=== PATIENT | female | born 1940 | race Caucasian/White ===

== ENCOUNTER → 2016-03-19 | Outpatient (CLI) | payer OTHER ==
[~2016-03-19] MED LIST: ACET-1256 PO; ASPI81TA28 PO; BRIM0.15 OPB; DIPH-416 PO; DORZ2SOL20; LATA0.5S; MULT-506 PO; NUTR-31 PO; PARO1TAB27 PO; RIVA1TAB7 PO; TRIATAB3 PO; XRL15 PO
--- NOTE | 2016-03-19 17:07 | MAMMOGRAPHY REPORT ---
UNILATERAL LEFT DIGITAL DIAGNOSTIC MAMMOGRAM TOMOSYNTHESIS AND TARGETED LEFT ULTRASOUND: 03/19/2016 CLINICAL HISTORY: Callback from screening mammogram for left breast calcifications and left breast m ass. TECHNIQUE: Breast tomosynthesis in addition to standard 2D mammography was performed. Spot dannie ranjit left CC and MLO 2-D and tomosynthesis views and spot magnification left CC and ML views were ob tained. COMPARISON: Comparison is made to exams dated: 03/10/2016 mammogram - [facility], 10/11/2009 mammogram, and 11/19/2007 mammogram. BREAST COMPOSITION: The tissue of the left breast is heterogeneously dense, which may obscure small masses. FINDINGS: Spot magnification views of the left breast demonstrate a small 3 mm cluster of slightly heterogeneous calcifications in the left central breast, which are new compared to prior exams. Giv en that the calcifications are new, they are indeterminate and stereotactic biopsy is recommended fo r further evaluation. The previously described nodular 5 mm asymmetry seen within the left medial b reast on the cc view does not clearly persist on the spot compression views. Targeted ultrasound was performed of the left medial breast in the region of the mammographic asymme try. In the left breast at 11:00, 1 cm from the nipple, there is a lobulated hypoechoic 5 x 3 x 5 m m mass with a few thin internal septations. This likely represents a cyst cluster and may correspon d with the mammographic mass although is indeterminate. Recommend ultrasound guided core needle bio psy for further evaluation. In the left breast at 9:00 periareolar region is an oval anechoic benig n simple cyst which measures 7 x 4 x 8 mm. IMPRESSION: ACR BI-RADS CATEGORY 4: SUSPICIOUS, TARGETED ULTRASOUND ACR BI-RADS CATEGORY 4: SUSPICI OUS 1. New small 3 mm cluster of calcifications in the left central breast. The calcifications are ind eterminate and stereotactic biopsy is recommended for further evaluation. 2. 5 mm mass in the left breast at 11:00 on ultrasound, which may correspond with the mammographic mass and may represent a cyst cluster although is indeterminate. Recommend ultrasound-guided core n eedle biopsy for further evaluation. A phone call was made to the physician's office to confirm faxed results were received. The patient has been verbally notified of the results. She tentatively scheduled the biopsies before leaving t he department. Approximately 10% of breast cancers are not detected with mammography. A negative mammographic repor t should not delay biopsy if a clinically suggestive mass is present. Ary Mosquera M.D. ah/:03/19/2016 15:21:01 Finish Cleaner: Heather BRITO(Raiza)(Sonya), [facility] letter sent: Abnormal 4/5 BI-RADS Code: ACR BI-RADS Category 4: Suspicious Ultrasound BI-RADS: ACR BI-RADS Category 4: Suspic ious
--- NOTE | 2016-03-22 06:26 | CODING QUERY NO DIAGNOSIS ---
TREATMENT RENDERED WITHOUT A DIAGNOSIS To promote full compliance with coding requirements relating to patient care, physician participation is requested in all cases of manager of community relations uncertainty. Please assist us with providing a diagnosis/symptom for the test(s) below: A diagnosis/symptom was not documented on your Order. A valid diagnosis/symptom is required to bill all insurances. Please remember that we are unable to code a diagnosis of rule out, probable, possible, questionable, or suspected. Tests that require a diagnosis: DOS: 03/19/16 * LEFT DIAGNOSTIC MAMMOGRAM W/ TARGETED ULTRASOUND DIAGNOSIS: Provider Signature: Date: Thank you Lara James [employer] Once completed, please kindly fax back to [phone] For questions please call [phone]
== END | disposition home or self-care (01) ==
LOC: C.MAMM 13:25
PROVIDERS: ATTEND Family Medicine
DX: R92.1 Mammographic calcification found on diagnostic imaging of breast (principal); N63 Unspecified lump in breast

== ENCOUNTER → 2016-04-04 | Outpatient (CLI) | payer OTHER ==
--- NOTE | 2016-04-04 13:42 | Discharge Instructions ---
Discharge Instructions Procedure Procedure Date: Apr 04, 2016. Reason for visit: Left Calcs/Us Core Bx Left Mass. Discharge Discharge Date: Apr 04, 2016. Discharge Diagnosis: status post breast biopsy Instructions Activity Recommendations: Additional Limitations (see below) Return to School/Work: no limitations Recommended Home Diet: No Limitations Provider Instructions: ACTIVITY RECOMMENDATIONS: * No lifting, pushing, pulling or exercising the affected side for three days. RETURN TO SCHOOL/WORK: * You may return to work/school after the procedure, but do not perform any strenuous activities for 24 to 48 hours. MEDICATIONS: * Tylenol (two 325 mg) every four to six hours if needed for mild pain (if not allergic to Tylenol). DIET: * Resume previous diet. SPECIAL CARE INSTRUCTIONS: * Keep biopsy site dry for 24 hours. May shower after 24 hours, but do not soak (bathe) incision. * May remove Tegaderm (plastic patch) tomorrow AFTER showering. * Leave the steri-strips on for one week. Allow the steri-strips to fall off by themselves. If not off after one week, you may remove them. You may place a Bandaid crosswise over the strips, if desired. * Apply ice 10 minutes on and 10 minutes off as needed. * Wear a bra at bedtime to sleep more comfortably for 2-3 days. * Your referring physician should have the results after approximately 5 to 7 business days. * Call for unusual bleeding, fever, drainage, etc or if you have any questions call during normal business hours or after hours call Dr Mosquera, [phone]. FOLLOW UP VISIT: Follow-up with Referring Physician as scheduled. Malik Blanco Recommendations: Call your doctor if: * Temperature above 101 degrees * Pain not relieved by pain medicine ordered * There is increased drainage or redness from any incision * You have any unanswered questions or concerns. Your Doctors Instructions noted above were prepared by provider Ary Mosquera. Patient Signature Section: Patient Instructions Signature Page Deanne Crabtree Patient (or Guardian) Signature/Date: I have read and understand the instructions given to me by my caregivers. Caregiver/RN/Doctor Signature/Date: The above-named patient and/or guardian has received patient instructions on this date. + Original Patient Signature Page (only) stays with chart. Please make copy for patient.
--- NOTE | 2016-04-04 16:44 | MAMMOGRAPHY REPORT ---
ULTRASOUND GUIDED BIOPSY LEFT BREAST: 04/04/2016 CLINICAL HISTORY: Left 11:00 cystic breast mass. PATIENT CONSENT: The procedure, risks and benefits were discussed with the patient and informed writ ten consent was obtained. A timeout was performed immediately prior to the procedure. PROCEDURE DESCRIPTION: With ultrasound guidance, aseptic technique, and lidocaine as the local anest hetic (1% lidocaine to anesthetize the skin and 1% lidocaine with epinephrine to anesthetize the nando per tissues), the mass of concern in the left 11:00 breast was sampled 3 times with a 14-gauge Achie ve biopsy needle. The mass decreased in size and was not well-seen after the biopsy passes were mad e. A metallic localizer clip was placed in the general region of the biopsied mass. Direct pressur e was applied to the site immediately post procedure and hemostasis was achieved. Postprocedure uni lateral mammograms were performed to confirm placement of the clip in the expected location of the b reast mass. The patient tolerated the procedure without complication. She was given wound care ins tructions. The specimens were sent to pathology for analysis. COMPARISON: Comparison is made to exams dated: 04/04/2016 stereotactic biopsy, 03/19/2016 ultrasound, 03/19/2016 mammogram, and 03/10/2016 mammogram - [facility]. IMPRESSION: ULTRASOUND GUIDED BIOPSY Ultrasound-guided biopsy of the left 11:00 breast mass, with clip placement. The patient will recei ve pathology results from her referring physician. Ary Mosquera M.D. ah/:04/04/2016 14:06:24 Rug Cutter: Nano Dumas, [facility]
--- NOTE | 2016-04-04 16:44 | MAMMOGRAPHY REPORT ---
UNILATERAL LEFT DIGITAL DIAGNOSTIC MAMMOGRAM: 04/04/2016 CLINICAL HISTORY: Status post stereotactic and ultrasound-guided biopsies of the left breast. TECHNIQUE: Postprocedural CC and ML views were obtained. COMPARISON: Comparison is made to exams dated: 04/04/2016 stereotactic biopsy, 03/19/2016 ultrasound, 03/19/2016 mammogram, 03/10/2016 mammogram - [facility], and 10/11/2009 mammogram. BREAST COMPOSITION: The tissue of the left breast is heterogeneously dense, which may obscure small masses. FINDINGS: A new biopsy marker clip is seen within the left central breast at the site of the biopsi ed calcifications. A new ribbon-shaped biopsy marker clip is seen within the left breast at the sit e of the biopsied left 11:00 breast mass. The biopsy clip is located in the general region of the a symmetry seen within the cc view on the recent screening mammogram, indicating good correlation betw een the biopsied sonographic mass and the mammographic mass. No significant postbiopsy hematoma is seen. IMPRESSION: POST PROCEDURE IMAGING FOR MARKER PLACEMENT New biopsy marker clips status post left breast biopsies. Pathology results are pending. Approximately 10% of breast cancers are not detected with mammography. A negative mammographic repor t should not delay biopsy if a clinically suggestive mass is present. Ary Mosquera M.D. /:04/04/2016 14:25:27 Gas Well Drilling Manager: Nano Dumas, [facility] BI-RADS Code: Post Procedure Imaging For Marker Placement
--- NOTE | 2016-04-04 16:44 | MAMMOGRAPHY REPORT ---
STEREOTACTIC GUIDED BIOPSY LEFT BREAST: 04/04/2016 CLINICAL HISTORY: Indeterminate calcifications in the left central breast. PATIENT CONSENT: The procedure, risks, benefits, and alternatives of stereotactic biopsy with clip p lacement were discussed with the patient, and verbal and written consent was obtained. A timeout wa s performed immediately prior to the procedure. PROCEDURE DESCRIPTION: With stereotactic guidance, aseptic technique, and lidocaine as a local anest hetic (1% lidocaine to anesthetize the skin and 1% lidocaine with epinephrine to anesthetize the nando per tissues), the area of concern was sampled multiple times with a 9-gauge vacuum-assisted biopsy n eedle (Suros Eviva petite). The path of approach was craniocaudal. The specimen radiograph demonst rates calcifications to be present in the samples. A metallic marker clip was placed at the biopsy site. This was confirmed on postprocedure mammograms. Direct pressure was applied at the biopsy si te and hemostasis was readily achieved. The patient tolerated the procedure without complication. She was given wound care instructions. COMPARISON: Comparison is made to exams dated: 03/19/2016 ultrasound, 03/19/2016 mammogram, 03/10/2016 mammogram - [facility], and 10/11/2009 mammogram. IMPRESSION: STEREOTACTIC GUIDED BIOPSY Stereotactic biopsy of indeterminate calcifications in the left central breast, with clip placement. The patient will receive pathology results from her referring provider. Ary Mosquera M.D. /:04/04/2016 14:04:19 Deputy Chief Executive: Nano Dumas, [facility]
== END | disposition home or self-care (01) ==
LOC: C.MAMM 13:05
PROVIDERS: ATTEND Family Medicine
DX: N63 Unspecified lump in breast (principal)

== ENCOUNTER 2016-10-12 16:11 | Inpatient (IN) | payer OTHER ==
[~2016-10-12] VITALS: Ht 175.3 cm; Wt 48.9 kg
[2016-10-12] MEDS ORDERED: SODIUM CHLORIDE 0.9% 1000ML 1,000 ML IV STA (17:41)
--- NOTE | 2016-10-12 17:43 | EMERGENCY ROOM VISIT NOTE ---
History Report prepared by Isael: Haylie Alcaraz Under the Supervision of: Dr. Barry Quintana D.O. First contact with patient: 17:22 Chief Complaint: NEURO SYMPTOMS Stated Complaint: COPD,NOT FEELING WELL History of Present Illness The patient is a 76 year old female who presents to the Emergency Room with complaints of constant numbness in her legs. The patient states she always has numbness in her left leg but she just started to get numbness in her right foot about a week ago. She also notes she has not have much of an appetite recently. The patient notes that she has peripheral stents in legs for smoking. She denies weakness in arms and no new weakness in legs. The patient has a history of COPD. Patient denies any chest pain, shortness breath, nausea vomiting or diarrhea. Source of History: patient Onset: a week ago Position: foot (right) Quality: numbness Timing: constant Note: Pt denies headache, change in vision, fevers, chest pain, shortness of breath, nausea, vomiting, diarrhea, pain with urination, and melena. Review of Systems See HPI for pertinent positives & negatives. A total of 10 systems reviewed and were otherwise negative. Past Medical & Surgical Medical Problems: (1) COPD (chronic obstructive pulmonary disease) (2) DVT (deep venous thrombosis) (3) Numbness and tingling of both legs Family History no pertinent family history stated Social History Smoking Status: Former Smoker Current/Historical Medications Scheduled Aspirin (Aspirin Ec), 81 MG PO DAILY Brimonidine Tartrate Oph (Alphagan P Oph), 1 DROP OPB BID Dorzolamide Hcl-Timolol Maleat (Cosopt Oph), 1 DROPS BID Latanoprost (Xalatan 0.005% Oph Mavis), 1 DROPS HS Multivitamin (Multivitamin), 1 TAB PO DAILY Nutritional Supplements (Boost High Protein), 1 BTL PO TID Paroxetine (Paxil), 20 MG PO DAILY Triamterene/Hctz (Triamterene/Hctz 37.5-25MG), 1 TAB PO DAILY Scheduled PRN Acetaminophen (Tylenol), 500 MG PO Q6 PRN for Pain Diphenoxylate/Atropine (Lomotil), 1 TAB PO QID PRN for Diarrhea Allergies Coded Allergies: No Known Allergies (Unverified , 10/12/16) Physical Exam Vital Signs Date Time Temp Pulse Resp B/P (MAP) Pulse Ox O2 Delivery O2 Flow Rate FiO2 10/12/16 23:30 78 20 129/67 98 Room Air 10/12/16 22:52 77 20 131/64 99 Room Air 10/12/16 21:20 67 20 98/52 97 Room Air 10/12/16 20:04 75 20 125/63 95 Room Air 10/12/16 18:45 70 16 121/62 98 Room Air 10/12/16 16:21 37.1 83 16 128/79 99 Room Air Physical Exam GENERAL: alert, well appearing, well nourished, no distress, sitting upright in bed EYE EXAM: normal conjunctiva. OROPHARYNX: no exudate, no erythema, lips, buccal mucosa, and tongue normal and mucous membranes are moist NECK: supple, no nuchal rigidity, no adenopathy, non-tender LUNGS: Clear to auscultation. Normal chest wall mechanics HEART: no murmurs, S1 normal and S2 normal ABDOMEN: abdomen soft, non-tender, normo-active bowel sounds, no masses, no rebound or guarding. BACK: Back is symmetrical on inspection and there is no deformity, no midline tenderness, no CVA tenderness. SKIN: no rashes and no bruising UPPER EXTREMITIES: upper extremities are grossly normal. LOWER EXTREMITIES: No pitting edema. Unable to palpate dp or pt pulses NEURO EXAM: Normal sensorium, cranial nerves II-XII intact, normal speech, no weakness of arms, no weakness of legs. No drift. Finger to nose intact. Gross sensation intact. Medical Decision & Procedures ER Provider Diagnostic Interpretation: Radiology results as stated below per my review and the radiologist's interpretation: ULTRASOUND RIGHT LOWER EXTREMITY ARTERIAL FINDINGS: There is mild to moderate echogenic atherosclerotic plaque seen throughout the arteries of the right lower extremity. There are triphasic waveforms in the right common femoral artery with velocities measuring up to 96 cm/s. The right profunda femoris artery is patent with velocities measuring up to 106 cm/s. There are triphasic waveforms seen throughout the superficial femoral and popliteal arteries. Velocities in the superficial femoral artery measure up to 123 cm/s and velocities in the popliteal artery measure up to 74 cm/s. There is three-vessel runoff to the foot. Velocities in the calf arteries measure up to 85 cm/s. The dorsalis pedis artery is patent with velocities measuring up to 35 cm/s. IMPRESSION: There is no sonographic evidence of high-grade stenosis or focal vessel cut off throughout the arteries of the right lower extremity. Electronically signed by: Daniel Paredes M.D. ULTRASOUND RIGHT LOWER EXTREMITY VENOUS FINDINGS: There is acute appearing nonocclusive deep venous thrombosis identified in the proximal right superficial femoral vein. The common femoral, mid to distal superficial femoral, and popliteal veins are patent and normally compressible. The greater saphenous vein and the profunda femoris vein at the junction with the common femoral vein are clear. The visualized calf veins are patent. IMPRESSION: There is acute appearing nonocclusive deep venous thrombosis identified within the right proximal superficial femoral vein. Electronically signed by: Daniel Paredes M.D. Laboratory Results 10/12/16 17:50 Red Blood Count 3.98, Mean Corpuscular Volume 99.0, Mean Corpuscular Hemoglobin 33.7, Mean Corpuscular Hemoglobin Concent 34.0, Mean Platelet Volume 9.3, Neutrophils (%) (Auto) 64.3, Lymphocytes (%) (Auto) 21.9, Monocytes (%) (Auto) 12.1, Eosinophils (%) (Auto) 1.1, Basophils (%) (Auto) 0.3, Neutrophils # (Auto ) 4.14, Lymphocytes # (Auto) 1.41, Monocytes # (Auto) 0.78, Eosinophils # (Auto ) 0.07, Basophils # (Auto) 0.02 10/12/16 17:50 Test 10/12/16 17:50 10/12/16 18:47 10/12/16 23:36 White Blood Count 6.44 K/uL (4.8-10.8) Red Blood Count 3.98 M/uL (4.2-5.4) Hemoglobin 13.4 g/dL (12.0-16.0) Hematocrit 39.4 % (37-47) Mean Corpuscular Volume 99.0 fL (80-100) Mean Corpuscular Hemoglobin 33.7 pg (25-34) Mean Corpuscular Hemoglobin Concent 34.0 g/dl (32-36) Platelet Count 279 K/uL (130-400) Mean Platelet Volume 9.3 fL (7.4-10.4) Neutrophils (%) (Auto) 64.3 % Lymphocytes (%) (Auto) 21.9 % Monocytes (%) (Auto) 12.1 % Eosinophils (%) (Auto) 1.1 % Basophils (%) (Auto) 0.3 % Neutrophils # (Auto) 4.14 K/uL (1.4-6.5) Lymphocytes # (Auto) 1.41 K/uL (1.2-3.4) Monocytes # (Auto) 0.78 K/uL (0.11-0.59) Eosinophils # (Auto) 0.07 K/uL (0-0.5) Basophils # (Auto) 0.02 K/uL (0-0.2) RDW Standard Deviation 48.7 fL (36.4-46.3) RDW Coefficient of Variation 13.4 % (11.5-14.5) Immature Granulocyte % (Auto) 0.3 % Immature Granulocyte # (Auto) 0.02 K/uL (0.00-0.02) Prothrombin Time 9.6 SECONDS (9.0-12.0) Prothromb Time International Ratio 0.9 (0.9-1.1) Activated Partial Thromboplast Time 23.9 SECONDS (21.0-31.0) Partial Thromboplastin Ratio 0.9 Anion Gap 7.0 mmol/L (3-11) Est Creatinine Clear Calc Drug Dose 48.7 ml/min Estimated GFR () 93.0 Estimated GFR (Non- 80.2 BUN/Creatinine Ratio 21.9 (10-20) Calcium Level 9.8 mg/dl (8.5-10.1) Magnesium Level 2.2 mg/dl (1.8-2.4) Total Bilirubin 0.3 mg/dl (0.2-1) Direct Bilirubin 0.1 mg/dl (0-0.2) Aspartate Amino Transf (AST/SGOT) 16 U/L (15-37) Alanine Aminotransferase (ALT/SGPT) 16 U/L (12-78) Alkaline Phosphatase 92 U/L (45-117) Total Protein 6.4 gm/dl (6.4-8.2) Albumin 3.0 gm/dl (3.4-5.0) Lipase 219 U/L (73-393) Urine Color YELLOW Urine Appearance CLOUDY (CLEAR) Urine pH 8.0 (4.5-7.5) Urine Specific [place] 1.017 (1.000-1.030) Urine Protein NEG (NEG) Urine Glucose (UA) NEG (NEG) Urine Ketones NEG (NEG) Urine Occult Blood NEG (NEG) Urine Nitrite POS (NEG) Urine Bilirubin NEG (NEG) Urine Urobilinogen NEG (NEG) Urine Leukocyte Esterase MODERATE (NEG) Urine WBC (Auto) 10-30 /hpf (0-5) Urine RBC (Auto) 0-4 /hpf (0-4) Urine Hyaline Casts (Auto) 0 /lpf (0-5) Urine Epithelial Cells (Auto) 10-20 /lpf (0-5) Urine Bacteria (Auto) 4+ (NEG) Laboratory results per my review. Medications Administered Medications (Trade) Dose Ordered Sig/Nato Route Start Time Stop Time Status Last Admin Dose Admin Sodium Chloride 1,000 ml @ 999 mls/hr Q1H1M STAT IV 10/12/16 17:41 10/12/16 18:41 DC 10/12/16 17:55 999 MLS/HR Ceftriaxone Sodium (Rocephin Im) 250 mg NOW STAT IM 10/12/16 19:20 10/12/16 19:21 DC 10/12/16 20:02 250 MG Heparin Sodium/ Dextrose (Heparin 25,000 Unit/500ml D5W) 25,000 unit STK-MED ONCE .ROUTE 10/12/16 20:35 10/12/16 20:36 DC 10/12/16 20:40 25,000 UNIT Heparin Sodium (Porcine) (Heparin Iv Bolus) 10,000 unit STK-MED ONCE .ROUTE 10/12/16 20:35 10/12/16 20:36 DC 10/12/16 20:39 10,000 UNIT Potassium Chloride (Klor-Con M10) 50 meq NOW STAT PO 10/12/16 23:33 10/12/16 23:41 DC 10/12/16 23:46 50 MEQ ED Course ED COURSE: Vital signs were reviewed and showed normal The patients medical record was reviewed The above diagnostic studies were performed and reviewed. ED treatments and interventions as stated above. 1730: The patient was evaluated in room A2. A complete history and physical examination was performed. 1741: Sodium Chloride 1000 ml @ 999 mls/hr IV. 1920: I rechecked on the patient. She mentioned that she was previously on Coumadin and her PCP took her off of it because she was not following up to get her levels checked. 1919: Rocephin Im 250 IM 2026: Heparin Sodium/ Dextrose 1 ea N/A 2042: I reviewed the patient's case with Dr. Jules. He will evaluate the patient for further management. 2049: Upon reevaluation, the patient is resting.I discussed my findings with the patient and she understands and agrees with the treatment plan. Based on the patients age, coexisting illnesses, exam and lab findings the decision to treat as an outpatient was made. The patient remained stable while under my care. The patient will be evaluated for further management. Medical Decision Differential diagnosis: Etiologies such as DVT, musculoskeletal, infection, joint effusion, trauma, lymphedema, idiopathic, CHF, as well as others were entertained. Patient is a 76-year-old female who presents the ER for weakness and right lower extremity pain. CBC along with BMP, LFTs and bilirubin was unremarkable. UA shows UTI which I favors likely causing her weakness. Ultrasound of the right lower extremity shows a DVT. She is currently living with her daughter. She has no history of any recent trauma and past 24 hours, brain bleed, brain surgery, hemorrhagic stroke, hemoptysis, hematemesis, hematuria, melena or bright red blood in stool. Consequently she is placed on heparin drip and given a bolus. I discussed case with Dr. Pollard as she generally falls at least once a week felt it was unreasonable to discharge her on blood thinner. I favor a filter may be her best bed. Constantly she is admitted to internal medicine for observation overnight. She was previously given a dose of Rocephin were her UTI. Medication Reconcilliation Current Medication List: was personally reviewed by me Blood Pressure Screening Patient's blood pressure: Normal blood pressure Blood pressure disposition: Did not require urgent referral Consults Time Called: 2039 Consulting Physician: Dr. Jules Returned Call: 2042 I reviewed the patient's case with Dr. Fuentes. He will evaluate the patient for further management. Impression Primary Impression: UTI (urinary tract infection) Additional Impressions: Recurrent falls DVT (deep venous thrombosis) Scribe Attestation The scribe's documentation has been prepared under my direction and personally reviewed by me in its entirety. I confirm that the note above accurately reflects all work, treatment, procedures, and medical decision making performed by me. Departure Information Dispostion Being Evaluated By Hospitalist Referrals Horace Sandhu M.D. (PCP) Patient Instructions My [facility] Problem Qualifiers Primary Impression: UTI (urinary tract infection) Urinary tract infection type: acute cystitis Hematuria presence: with hematuria Qualified Codes: N30.01 - Acute cystitis with hematuria Additional Impressions: DVT (deep venous thrombosis) DVT location: lower extremity Affected thrombotic vein of extremity: unspecified vein of extremity Chronicity: acute Laterality: unspecified laterality Qualified Codes: I82.409 - Acute embolism and thrombosis of unspecified deep veins of unspecified lower extremity
[2016-10-12 18:03] LABS: BASO % 0.3 %; BASO ABS # 0.02 K/uL (0-0.2); COMPLETE YES; EOS % 1.1 %; HEMATOCRIT 39.4 % (37-47); IG% 0.3 %; LYMPH % 21.9 %; LYMPH ABS # 1.41 K/uL (1.2-3.4); MEAN CORPUSCULAR HEMOGLOBIN 33.7 pg (25-34); MEAN PLATELET VOLUME 9.3 fL (7.4-10.4); MONO % 12.1 %; NEUT % 64.3 %; PLATELET COUNT 279 K/uL (130-400); RED BLOOD COUNT 3.98 M/uL (4.2-5.4); WHITE BLOOD COUNT 6.44 K/uL (4.8-10.8)
[2016-10-12] MEDS ORDERED: DORZ2SOL20 (18:24)
[2016-10-12] MEDS ORDERED: ACET-1256 PO (18:24)
[2016-10-12] MEDS ORDERED: DIPH-416 PO (18:24)
[2016-10-12] MEDS ORDERED: PARO1TAB27 PO (18:24)
[2016-10-12] MEDS ORDERED: BRIM0.15 OPB (18:24)
[2016-10-12] MEDS ORDERED: NUTR-31 PO (18:24)
[2016-10-12] MEDS ORDERED: MULT-506 PO (18:24)
[2016-10-12] MEDS ORDERED: LATA0.5S (18:24)
[2016-10-12] MEDS ORDERED: TRIATAB3 PO (18:24)
[2016-10-12] MEDS ORDERED: ASPI81TA28 PO (18:24)
[2016-10-12 18:25] LABS: BUN/CREATININE RATIO 21.9 (10-20); CALCIUM 9.8 mg/dl (8.5-10.1); CREATININE 0.72 mg/dl (0.60-1.20); POTASSIUM 3.5 mmol/L (3.5-5.1)
[2016-10-12 19:17] LABS: MANUAL MICROSCOPIC REQUIRED? NO; REVIEW REQ? NO; URINE APPEARANCE CLOUDY (CLEAR); URINE BILIRUBIN NEG (NEG); URINE COLOR YELLOW; URINE NITRITE POS (NEG); URINE SPECIFIC GRAVITY 1.017 (1.000-1.030); UROBILINOGEN NEG (NEG); ZZUR CULT IF INDIC CLEAN CATCH YES
[2016-10-12] MEDS ORDERED: CEFTRIAXONE SOD 350MG/ML 1 GM VIAL IM STA (19:20)
--- NOTE | 2016-10-12 20:03 | DIAGNOSTIC IMAGING REPORT ---
ULTRASOUND RIGHT LOWER EXTREMITY VENOUS CLINICAL HISTORY: Right leg pain. COMPARISON STUDY: No priors. TECHNIQUE: Real-time, grayscale, and color Doppler sonography of the deep veins of the right lower extremity was performed from the inguinal crease to the calf. Compression and augmentation were utilized. FINDINGS: There is acute appearing nonocclusive deep venous thrombosis identified in the proximal right superficial femoral vein. The common femoral, mid to distal superficial femoral, and popliteal veins are patent and normally compressible. The greater saphenous vein and the profunda femoris vein at the junction with the common femoral vein are clear. The visualized calf veins are patent. IMPRESSION: There is acute appearing nonocclusive deep venous thrombosis identified within the right proximal superficial femoral vein. Electronically signed by: Daniel Paredes M.D. 10/12/2016 8:01 PM Dictated Date/Time: 10/12/2016 8:00 PM
--- NOTE | 2016-10-12 20:16 | DIAGNOSTIC IMAGING REPORT ---
ULTRASOUND RIGHT LOWER EXTREMITY ARTERIAL CLINICAL HISTORY: Right leg pain and numbness. COMPARISON STUDY: No priors. TECHNIQUE: Real-time, grayscale, and color Doppler sonography of the arteries of the right lower extremity is performed from the inguinal crease to the foot. FINDINGS: There is mild to moderate echogenic atherosclerotic plaque seen throughout the arteries of the right lower extremity. There are triphasic waveforms in the right common femoral artery with velocities measuring up to 96 cm/s. The right profunda femoris artery is patent with velocities measuring up to 106 cm/s. There are triphasic waveforms seen throughout the superficial femoral and popliteal arteries. Velocities in the superficial femoral artery measure up to 123 cm/s and velocities in the popliteal artery measure up to 74 cm/s. There is three-vessel runoff to the foot. Velocities in the calf arteries measure up to 85 cm/s. The dorsalis pedis artery is patent with velocities measuring up to 35 cm/s. IMPRESSION: There is no sonographic evidence of high-grade stenosis or focal vessel cut off throughout the arteries of the right lower extremity. Electronically signed by: Daniel Paredes M.D. 10/12/2016 8:15 PM Dictated Date/Time: 10/12/2016 8:10 PM
[2016-10-12] MEDS ORDERED: HEPARIN 25000 UNIT/500 ML D5W ONE (20:35)
[2016-10-12] MEDS ORDERED: HEPARIN SOD (PORCINE) 1000 UNIT/ML 10 ML VIAL ONE (20:35)
[2016-10-12 20:38] LABS: INR 0.9 (0.9-1.1); PARTIAL THROMBOPLASTIN RATIO 0.9; PROTHROMBIN TIME (PATIENT) 9.6 SECONDS (9.0-12.0)
[2016-10-12 20:54] LABS: MAGNESIUM 2.2 mg/dl (1.8-2.4)
[2016-10-12] MEDS ORDERED: POTASSIUM CHLORIDE 10 MEQ TABCR PO STA (23:33)
[2016-10-12] MEDS ORDERED: ACETAMINOPHEN 500 MG TAB PO PRN (23:45)
[2016-10-12] MEDS ORDERED: HYDROmorphone INJ 0.5 MG/0.5 ML SYR IV PRN (23:45)
[2016-10-12] MEDS ORDERED: ACETAMINOPHEN 325 MG TAB PO PRN (23:45)
[2016-10-12] MEDS ORDERED: NITROGLYCERIN 0.4 MG SL PER TAB CHARGE SL PRN (23:45)
[2016-10-12] MEDS ORDERED: ONDANSETRON INJ 2 MG/ML 2 ML VIAL IV PRN (23:45)
[2016-10-12] MEDS ORDERED: TRAMADOL HCL 50 MG TAB PO PRN (23:45)
[2016-10-13] VITALS (9 sets, daily range): BP systolic 108–130; BP diastolic 56–69; PULSE 61–74; TEMP 36.8–37; O2SAT 95–98; Ht 175.3 cm; Wt 48.9 kg
[2016-10-13] MEDS ORDERED: LORAZEPAM 0.5 MG TAB PO STA (00:07)
[2016-10-13] MEDS ORDERED: LACTATED RINGER'S 1000ML 1,000 ML IV ONE (00:15)
[2016-10-13] MEDS ORDERED: PHARMACIST DISCHARGE MED REC CONSULT PRN ×2 (00:15)
[2016-10-13] MEDS ORDERED: CLOPIDOGREL BISULFATE 75 MG TAB PO ONE (01:43)
[2016-10-13] MEDS ORDERED: HEPARIN IV LOW DOSE NO BOLUS SCH (01:51)
[2016-10-13] MEDS ORDERED: CLOPIDOGREL BISULFATE 75 MG TAB PO STA (01:51)
[2016-10-13] MEDS: HEPARIN 25,000 UNIT/500ML D5W 500 ML IV PRN ×2 (02:22→11:18)
[2016-10-13 03:01] LABS: PARTIAL THROMBOPLASTIN RATIO 1.4
--- NOTE | 2016-10-13 05:57 | HISTORY & PHYSICAL EXAMINATION ---
DATE OF ADMISSION: 10/12/2016 PRIMARY CARE DOCTOR: Dr. Sandhu. CHIEF COMPLAINT: Not feeling well, numbness on the right leg. HISTORY OF PRESENT ILLNESS: History obtained from patient, records and daughter. Patient is a fair historian Mhx Significant for dementia as per daughter, PVD status post surgery, ongoing tobacco abuse, history of breast cancer, right status post surgery, chemoradiation, bladder cancer status post surgery. Past history of anticoagulation for PVD or blood clot as per daughter. Last week, patient not feeling well, constant numbness on the right leg. Chronic numbness on the left leg. No chest pain, no shortness of breath. Appetite is not too good. Denies abdominal pain, bladder symptoms. Patient saw her PCP few days ago, complaining of some weight loss and fatigue and depression. Denies suicidality. At the Emergency Room, the patient nonocclusive DVT noted on the right saphenofemoral vein, IV heparin started in the Emergency Room. IV Ceftriaxone also given for UTI. MEDICAL HISTORY: As above. SURGERIES: Mastectomy, urologic procedures, cataract surgery, hernia repair. HOME MEDICATIONS: Include Boost, triamterene, latanoprost, aspirin, multivitamins, dorzolamide, and brimonidine. ALLERGIES: No known drug allergies. FAMILY HISTORY: Diabetes. PERSONAL AND SOCIAL HISTORY: Ongoing tobacco abuse 1/2-1 pack daily. No chronic intake of alcoholic beverages. Has been living with daughter and son-in-law since last year when daughter got patient from [place] where she had been living by herself. Previously worked as a nurse aide. REVIEW OF SYSTEMS: As per HPI, all other ROS negative. PHYSICAL EXAMINATION: VITAL SIGNS: Blood pressure was noted to be 128/70, pulse rate is 16, temperature 37.1, and sats 98 on room air. GENERAL: Noted to be comfortable, no respiratory distress. Looks younger for stated age. SKIN: Normal color. HEENT: [place] palpebral conjunctivae. Dry mucosa. NECK: Supple. CHEST: Clear to auscultation. HEART: Regular rate and rhythm. ABDOMEN: Soft. NT EXTREMITIES: No edema, no tenderness. NEUROLOGIC: No gross focality. LABORATORY AND IMAGING DATA: Hemoglobin was noted to be 13.4, hematocrit 39, white cells 6.4, platelets noted to be 279. Sodium 136, potassium 3.5, chloride 105, CO2 31, BUN 16, creatinine 0.7, glucose 188. CT head initial read, no acute intracranial pathology. Ultrasound of the leg showed acute appearing nonocclusive DVT, right proximal superficial femoral vein. UA WBCs, nitrite positive ASSESSMENT: 1. Right lower extremity numbness of one week duration ddx : cerebrovascular accident (?ASA failure), Lyme neuropathy. 2. Hypertension, stable. 3. Recurrent DVT As per daughter, patient taken off anticoag by PCP because patient refused requisite periodic labwork during previous residency in [place]. 4. right breast cancer status post surgery, chemoradiation 5. bladder cancer status post surgery. 6. depression, suboptimal as per patient 7. UTI, px not septic 8. Dementia as per daughter, no documentation of diagnosis in outpatient records 9. ongoing tobacco abuse PLAN: PCU, neuro checks. MRI/MRA of the brain. RE right lower extremity numbness. Plavix for now for possible aspirin failure until stroke definitely ruled out. May need additional stroke workup pending MRI results. Lyme screen low dose IV Heparin for now for DVT. (Daughter agreeable with anti-coagulation for now until able to confer with other family members with regard to decision for long-term anticoagulation. Hold vascular Surgery Consult for IVC filter placement for now pending definitive family decision. ER physician had already contacted Dr. Pollard.) Urine cultures, IV Ceftriaxone for now. Nicotine patch. Psych consult RE depression. PT, OT eval. DVT prophylaxis, Heparin. DO NOT RESUSCITATE as per daughter/POA (Miss Linda Perez). She requests updates from providers at [phone]. KLEVER
--- NOTE | 2016-10-13 06:38 | DIAGNOSTIC IMAGING REPORT ---
BRAIN WITHOUT CONTRAST HISTORY: 76 years-old Female acute strokelike symptoms. Patient presents with right lower extremity numbness for approximately 1 week. No known trauma. History of breast cancer. COMPARISON: MRA head and CT head of same day TECHNIQUE: Multiplanar multisequence MRI of the brain was obtained without contrast. FINDINGS: No restricted diffusion to suggest acute ischemia or infarction. Some of the sequences are mildly motion degraded. Midline structures including the corpus callosum, brainstem, optic chiasm, pituitary and pineal glands are unremarkable. No cerebellar tonsillar herniation. There is moderate cerebral and cerebellar atrophy with mild ex vacuo ventriculomegaly. There is no acute intracranial hemorrhage, midline shift, hydrocephalus, intracranial mass or abnormal extra-axial collections. Scattered areas of subcortical, deep white matter and periventricular T2 prolongation are seen. The flow voids at the level of the skull base appear to be within normal limits. There is evidence of prior bilateral cataract repair. Trace bilateral mastoid effusions are noted. There is mild ethmoid mucosal thickening. IMPRESSION: 1. No acute intracranial abnormality. No evidence of acute ischemia or intracranial hemorrhage. 2. Age-related changes of atrophy and chronic microvascular ischemic changes. 3. Nonspecific trace bilateral mastoid effusions. The above report was generated using voice recognition software. It may contain grammatical, syntax or spelling errors. Electronically signed by: Brice Lange M.D. 10/13/2016 6:37 AM Dictated Date/Time: 10/13/2016 6:32 AM
--- NOTE | 2016-10-13 07:11 | DIAGNOSTIC IMAGING REPORT ---
CT OF THE HEAD WITHOUT CONTRAST CLINICAL HISTORY: Right lower extremity numbness. COMPARISON STUDY: No previous studies for comparison. CT DOSE: 614.27 mGy.cm TECHNIQUE: Helical axial images of the head were obtained without IV contrast. Automated exposure control was utilized for the study. A dose lowering technique was utilized adhering to the principles of ALARA. FINDINGS: No acute intracranial hemorrhage, midline shift or mass effect is present. Ventricular system is unremarkable for age. Basilar cisterns are patent. There are no extra-axial collections. White matter hypodensities suggest moderate small vessel disease. There are no findings to suggest acute dural sinus thrombosis or acute territorial infarct. There are no significant calvarial abnormalities. Visualized portions of the sinuses and mastoid air cells are clear. IMPRESSION: No acute intracranial findings. Electronically signed by: Jude Portillo M.D. 10/13/2016 7:10 AM Dictated Date/Time: 10/13/2016 7:08 AM
--- NOTE | 2016-10-13 07:16 | DIAGNOSTIC IMAGING REPORT ---
MRA HEAD WITHOUT CONTRAST CLINICAL HISTORY: 76 years-old Female presenting with right lower extremity numbness for one week, no known injury, history of breast cancer, right-sided mastectomy. TECHNIQUE: MR angiography of the head was performed without the use of intravenous contrast using 3-D [id number] technique. 3-D volumetric and/or maximum intensity projection (MIP) images were subsequently reconstructed for review. IV contrast: None.. COMPARISON: None. FINDINGS: Anterior circulation including the intracranial internal carotid artery, anterior and middle cerebral arteries, and anterior communicating artery patent. Posterior circulation demonstrates left dominant vertebral artery. Both vertebral arteries contribute to the basilar artery. Posterior circulation including the superior cerebellar and posterior cerebral arteries patent. origin of the left posterior cerebral artery. Bilateral posterior communicating arteries patent. No stenosis, occlusion, or aneurysm. IMPRESSION: 1. No significant stenosis, aneurysm, or focal vessel occlusion. Electronically signed by: Jerrod Cash M.D. 10/13/2016 7:15 AM Dictated Date/Time: 10/13/2016 7:11 AM
[2016-10-13 08:51] LABS: BASO % 0.4 %; BASO ABS # 0.02 K/uL (0-0.2); COMPLETE YES; EOS % 2.6 %; HEMATOCRIT 36.4 % (37-47); LYMPH % 26.7 %; LYMPH ABS # 1.33 K/uL (1.2-3.4); MEAN CORPUSCULAR HEMOGLOBIN 33.2 pg (25-34); MEAN CORPUSCULAR HGB CONC 33.2 g/dl (32-36); MEAN PLATELET VOLUME 9.5 fL (7.4-10.4); MONO % 11.2 %; NEUT % 59.1 %; PLATELET COUNT 260 K/uL (130-400); RED BLOOD COUNT 3.64 M/uL (4.2-5.4); WHITE BLOOD COUNT 4.98 K/uL (4.8-10.8)
[2016-10-13 08:58] LABS: PARTIAL THROMBOPLASTIN RATIO 1.4
[2016-10-13] MEDS: NICOTINE 14 MG/24 HR TDSY TD SCH (09:12)
[2016-10-13 09:17] LABS: BUN/CREATININE RATIO 16.5 (10-20); CREATININE 0.54 mg/dl (0.60-1.20); POTASSIUM 3.9 mmol/L (3.5-5.1)
[2016-10-13 09:21] LABS: CHOLESTEROL/HDL RATIO 2.8
[2016-10-13] MEDS: DORZOLAMIDE/TIMOLOL 22.3/6.8MG/ML 10 ML BTL OPB SCH ×2 (09:24→21:07)
[2016-10-13] MEDS: BOOST PLUS VANILLA PO SCH ×6 (09:25→21:06)
[2016-10-13] MEDS: PAROXETINE 20 MG TAB PO SCH (09:26)
[2016-10-13] MEDS: MULTIVITAMIN TAB PO SCH (09:26)
[2016-10-13] MEDS: BRIMONIDINE TARTRATE-P 0.15% 5 ML BTL OPB SCH ×2 (09:27→21:07)
--- NOTE | 2016-10-13 10:13 | Medical Student: [facility] Only ---
Psychiatric Evaluation Date of Service: Oct 13, 2016. Deanne Crabtree is a pleasant 76 yo female admitted yesterday with a R lower extremity DVT consulted for depression. Through conversation with the patient and her daughter, the patient has a long history of depression successfully treated in the past. She had stopped her antidepressant about one year ago, but was recently restarted on Paxil 20mg daily by her PCP because she was again having more days where she was depressed than happy. The patient and her daughter deny any recent events that have exacerbated her depression. I explained the role of consult psychiatry, and while appreciative of our support , neither Deanne or her daughter thought that any changes to her medications or management are needed at this time. Deanne denies any thoughts or plans to harm herself or others. She does admit that she is not happy about having to be in the hospital, but understands she needs to be here because of her DVT. I discussed this case with both Dr. Ene Field and Mireya MORALES from psychiatry, who recommended I speak with Deanne's hospitalist to determine whether the consult is needed. After speaking with him, the full consult was cancelled. We are also in agreement that no medication changes should be made at this time, as the Paxil was only restarted one week ago. Should Deanne need our services throughout the rest of her hospital stay, please feel free to contact us with any needs. Thank you for involving us in her care.
[2016-10-13] MEDS ORDERED: HEPARIN IV BOLUS 3,000 UNIT in SYRINGE 0 ML IV SCH (11:15)
--- NOTE | 2016-10-13 13:32 | Progress Note ---
Subjective Date of Service: Oct 13, 2016. Subjective Pt evaluation today including: conversation w/ patient, conversation w/ family (daughter), physical exam, lab review, review of studies, conversation w/ sap portal consultant, review of inpatient medication list Saw/examined the patient in room 275 Doing okay today Numbness/tingling persist of the lower extremity No chest pain/no shortness of breath Problem List Medical Problems: (1) DVT (deep venous thrombosis) Status: Acute (2) Recurrent falls Status: Acute (3) UTI (urinary tract infection) Status: Acute Review of Systems Constitutional: No fever Respiratory: No cough, No sputum, No shortness of breath Cardiac: No chest pain, No edema, No palpitations Abdomen: No pain, No nausea, No vomiting, No diarrhea Neurologic: + numbness/tingling Medications Current Inpatient Medications Medications (Trade) Dose Ordered Sig/Nato Route Start Time Stop Time Status Last Admin Dose Admin Acetaminophen (Tylenol Tab) 650 mg Q4H PRN PO 10/12/16 23:45 11/11/16 23:44 Nitroglycerin (Nitrostat Tab) 0.4 mg UD PRN SL 10/12/16 23:45 11/11/16 23:44 Tramadol HCl (Ultram Tab) 25 mg Q6H PRN PO 10/12/16 23:45 11/11/16 23:44 Hydromorphone HCl (Dilaudid Inj) 0.5 mg Q3H PRN IV 10/12/16 23:45 10/26/16 23:44 Ondansetron HCl (Zofran Inj) 4 mg Q6H PRN IV 10/12/16 23:45 11/11/16 23:44 Brimonidine Tartrate (Alphagan-P 0.15% Oph Soln) 1 drops BID OPB 10/13/16 09:00 11/12/16 08:59 10/13/16 09:27 1 DROPS Dorzolamide/ Timolol (Cosopt Op Soln) 1 drops BID OPB 10/13/16 09:00 11/12/16 08:59 10/13/16 09:24 1 DROPS Latanoprost (Xalatan Oph Soln) 1 drops HS OPB 10/13/16 21:00 11/12/16 20:59 Multivitamins (Multivitamin Tab) 1 tab DAILY PO 10/13/16 09:00 11/12/16 08:59 10/13/16 09:26 1 TAB Enteral Nutritional Formula (Boost Plus Vanilla) 1 can TID PO 10/13/16 09:00 11/12/16 08:59 10/13/16 09:25 1 CAN Paroxetine HCl (pAXil TAB) 20 mg DAILY PO 10/13/16 09:00 11/12/16 08:59 10/13/16 09:26 20 MG Nicotine (Nicoderm Cq 14MG Patch) 1 patch QAM TD 10/13/16 09:00 11/12/16 08:59 10/13/16 09:12 1 PATCH Miscellaneous (Remove Nicoderm Patch) 1 ea HS N/A 10/13/16 21:00 11/12/16 20:59 Miscellaneous Information (Pharmacist Discharge Med Rec Consult) 1 ea UD PRN N/A 10/13/16 00:15 11/12/16 00:14 Clopidogrel Bisulfate (plAVix TAB) 75 mg QAM PO 10/14/16 09:00 11/13/16 08:59 Heparin Sodium/ Dextrose 500 ml @ 13 mls/hr Q24H PRN IV 10/13/16 02:30 11/12/16 02:29 10/13/16 11:18 13 MLS/HR Ceftriaxone Sodium 1 gm/ Dextrose 50 ml @ 100 mls/hr DAILY@1999 IV 10/13/16 20:00 10/22/16 19:59 Objective Vital Signs Date Time Temp Pulse Resp B/P (MAP) Pulse Ox O2 Delivery O2 Flow Rate FiO2 10/13/16 11:41 36.9 63 18 119/69 (86) 96 10/13/16 08:00 97 Room Air 10/13/16 07:12 36.8 65 16 118/56 (76) 97 10/13/16 04:02 37.0 74 16 108/63 (78) 96 Room Air 10/13/16 04:00 Room Air 10/13/16 01:00 36.8 66 16 130/68 95 Room Air 10/12/16 23:30 78 20 129/67 98 Room Air 10/12/16 22:52 77 20 131/64 99 Room Air 10/12/16 21:20 67 20 98/52 97 Room Air 10/12/16 20:04 75 20 125/63 95 Room Air 10/12/16 18:45 70 16 121/62 98 Room Air 10/12/16 16:21 37.1 83 16 128/79 99 Room Air Physical Exam General Appearance: no apparent distress Respiratory/Chest: lungs clear, normal breath sounds, no respiratory distress, no accessory muscle use Cardiovascular: regular rate, rhythm, no edema, no murmur Extremities: normal range of motion, non-tender, no pedal edema, no calf tenderness, + pertinent finding (L LE is cooler to touch) Neurologic/Psychiatric: no motor/sensory deficits, alert, normal mood/affect Laboratory Results Last 24 Hours Test 10/12/16 17:50 10/12/16 18:47 10/13/16 02:40 10/13/16 08:26 White Blood Count 6.44 K/uL 4.98 K/uL Red Blood Count 3.98 M/uL 3.64 M/uL Hemoglobin 13.4 g/dL 12.1 g/dL Hematocrit 39.4 % 36.4 % Mean Corpuscular Volume 99.0 fL 100.0 fL Mean Corpuscular Hemoglobin 33.7 pg 33.2 pg Mean Corpuscular Hemoglobin Concent 34.0 g/dl 33.2 g/dl Platelet Count 279 K/uL 260 K/uL Mean Platelet Volume 9.3 fL 9.5 fL Neutrophils (%) (Auto) 64.3 % 59.1 % Lymphocytes (%) (Auto) 21.9 % 26.7 % Monocytes (%) (Auto) 12.1 % 11.2 % Eosinophils (%) (Auto) 1.1 % 2.6 % Basophils (%) (Auto) 0.3 % 0.4 % Neutrophils # (Auto) 4.14 K/uL 2.94 K/uL Lymphocytes # (Auto) 1.41 K/uL 1.33 K/uL Monocytes # (Auto) 0.78 K/uL 0.56 K/uL Eosinophils # (Auto) 0.07 K/uL 0.13 K/uL Basophils # (Auto) 0.02 K/uL 0.02 K/uL RDW Standard Deviation 48.7 fL 49.8 fL RDW Coefficient of Variation 13.4 % 13.6 % Immature Granulocyte % (Auto) 0.3 % 0.0 % Immature Granulocyte # (Auto) 0.02 K/uL 0.00 K/uL Prothrombin Time 9.6 SECONDS Prothromb Time International Ratio 0.9 Activated Partial Thromboplast Time 23.9 SECONDS 37.3 SECONDS Partial Thromboplastin Ratio 0.9 1.4 Sodium Level 143 mmol/L 147 mmol/L Potassium Level 3.5 mmol/L 3.9 mmol/L Chloride Level 105 mmol/L 112 mmol/L Carbon Dioxide Level 31 mmol/L 30 mmol/L Anion Gap 7.0 mmol/L 5.0 mmol/L Blood Urea Nitrogen 16 mg/dl 9 mg/dl Creatinine 0.72 mg/dl 0.54 mg/dl Est Creatinine Clear Calc Drug Dose 48.7 ml/min 65.2 ml/min Estimated GFR () 93.0 104.8 Estimated GFR (Non- 80.2 90.4 BUN/Creatinine Ratio 21.9 16.5 Random Glucose 88 mg/dl 91 mg/dl Calcium Level 9.8 mg/dl 9.0 mg/dl Magnesium Level 2.2 mg/dl Total Bilirubin 0.3 mg/dl Direct Bilirubin 0.1 mg/dl Aspartate Amino Transf (AST/SGOT) 16 U/L Alanine Aminotransferase (ALT/SGPT) 16 U/L Alkaline Phosphatase 92 U/L Troponin I < 0.015 ng/ml Total Protein 6.4 gm/dl Albumin 3.0 gm/dl Lipase 219 U/L Urine Color YELLOW Urine Appearance CLOUDY Urine pH 8.0 Urine Specific [place] 1.017 Urine Protein NEG Urine Glucose (UA) NEG Urine Ketones NEG Urine Occult Blood NEG Urine Nitrite POS Urine Bilirubin NEG Urine Urobilinogen NEG Urine Leukocyte Esterase MODERATE Urine WBC (Auto) 10-30 /hpf Urine RBC (Auto) 0-4 /hpf Urine Hyaline Casts (Auto) 0 /lpf Urine Epithelial Cells (Auto) 10-20 /lpf Urine Bacteria (Auto) 4+ Triglycerides Level 84 mg/dl Cholesterol Level 151 mg/dl HDL Cholesterol 54 mg/dl LDL Cholesterol, Calculated 80 mg/dl VLDL Cholesterol, Calculated 17 mg/dl Cholesterol/HDL Ratio 2.8 Lyme Disease IgM Antibody NEG Test 10/13/16 08:31 Activated Partial Thromboplast Time 36.2 SECONDS Partial Thromboplastin Ratio 1.4 Assessment and Plan This is a 76 year old female with a PMH of peripheral artery disease s/p stenting, hx. of DVT, refused anticoagulation in the past, hx. of breast CA s/p chemo and surgery, hx. of bladder CA s/p surgery, tobacco use disorder, depression presents with numbness/tingling of R LE and subsequently found to have R LE DVT Acute Nonocclusive R Superficial Femoral DVT patient presents with numbness/tingling Head CT and Brain MRI/MRA are negative Lower extremity Doppler suggestive of acute DVT had been on anticoagulation in the past, but refused to get bloodwork, so this was discontinued IV heparin started for now patient's daughter would like to talk about starting a NOAC CM consulted for cost of Xarelto UTI started on Rocephin urine culture pending Peripheral Artery Disease numbness/tingling likely secondary to the PAD has had stenting in the past monitor symptoms with IV heparin initiation should be on a statin - will need to discuss Depression recently restarted on Paxil spoke with mental health - will need time for this to take effect currently, no SI symptoms monitor DVT ppx IV heparin DNR
[2016-10-13] MEDS: CEFTRIAXONE SOD INJ 1 GM in DEXTROSE 5% ADD-VANTAGE 50ML 50 ML IV SCH (20:14)
[2016-10-13] MEDS: LATANOPROST 0.005% OP SOLN 2.5 ML BTL OPB SCH (21:06)
[2016-10-14] VITALS (9 sets, daily range): BP systolic 104–123; BP diastolic 48–72; PULSE 56–71; TEMP 36.3–37; O2SAT 93–98
[2016-10-14 06:53] LABS: HEMATOCRIT 35.1 % (37-47); MEAN CORPUSCULAR HEMOGLOBIN 32.8 pg (25-34); MEAN CORPUSCULAR HGB CONC 32.8 g/dl (32-36); MEAN PLATELET VOLUME 9.6 fL (7.4-10.4); PLATELET COUNT 264 K/uL (130-400); RED BLOOD COUNT 3.51 M/uL (4.2-5.4); WHITE BLOOD COUNT 4.45 K/uL (4.8-10.8)
[2016-10-14 07:10] LABS: PARTIAL THROMBOPLASTIN RATIO 1.5
[2016-10-14 07:32] LABS: BUN/CREATININE RATIO 18.1 (10-20); CALCIUM 9.1 mg/dl (8.5-10.1); CREATININE 0.58 mg/dl (0.60-1.20); POTASSIUM 3.9 mmol/L (3.5-5.1)
[2016-10-14] MEDS ORDERED: HEPARIN IV BOLUS 3,000 UNIT in SYRINGE 0 ML IV ONE (08:15)
[2016-10-14] MEDS: HEPARIN 25,000 UNIT/500ML D5W 500 ML IV PRN ×2 (08:19→16:26)
[2016-10-14] MEDS: CLOPIDOGREL BISULFATE 75 MG TAB PO SCH (08:20)
[2016-10-14] MEDS: DORZOLAMIDE/TIMOLOL 22.3/6.8MG/ML 10 ML BTL OPB SCH ×2 (08:20→20:34)
[2016-10-14] MEDS: MULTIVITAMIN TAB PO SCH (08:20)
[2016-10-14] MEDS: BRIMONIDINE TARTRATE-P 0.15% 5 ML BTL OPB SCH ×2 (08:20→20:34)
[2016-10-14] MEDS: PAROXETINE 20 MG TAB PO SCH (08:20)
[2016-10-14] MEDS: NICOTINE 14 MG/24 HR TDSY TD SCH (08:21)
[2016-10-14] MEDS: BOOST PLUS VANILLA PO SCH ×6 (08:23→20:34)
--- NOTE | 2016-10-14 10:04 | Progress Note ---
Subjective Date of Service: Oct 14, 2016. Subjective Pt evaluation today including: conversation w/ patient, physical exam, lab review, review of studies, review of inpatient medication list Saw/examined the patient in room 275 She's doing okay, denies any pain numbness/tingling persists at the L LE/foot Ambulating well Problem List Medical Problems: (1) DVT (deep venous thrombosis) Status: Acute (2) Recurrent falls Status: Acute (3) UTI (urinary tract infection) Status: Acute Review of Systems Respiratory: No shortness of breath Cardiac: No chest pain Abdomen: No pain, No nausea, No vomiting, No diarrhea Neurologic: + numbness/tingling, No balance problems Medications Current Inpatient Medications Medications (Trade) Dose Ordered Sig/Nato Route Start Time Stop Time Status Last Admin Dose Admin Acetaminophen (Tylenol Tab) 650 mg Q4H PRN PO 10/12/16 23:45 11/11/16 23:44 10/13/16 15:42 650 MG Nitroglycerin (Nitrostat Tab) 0.4 mg UD PRN SL 10/12/16 23:45 11/11/16 23:44 Tramadol HCl (Ultram Tab) 25 mg Q6H PRN PO 10/12/16 23:45 11/11/16 23:44 Hydromorphone HCl (Dilaudid Inj) 0.5 mg Q3H PRN IV 10/12/16 23:45 10/26/16 23:44 Ondansetron HCl (Zofran Inj) 4 mg Q6H PRN IV 10/12/16 23:45 11/11/16 23:44 Brimonidine Tartrate (Alphagan-P 0.15% Oph Soln) 1 drops BID OPB 10/13/16 09:00 11/12/16 08:59 10/14/16 08:20 1 DROPS Dorzolamide/ Timolol (Cosopt Op Soln) 1 drops BID OPB 10/13/16 09:00 11/12/16 08:59 10/14/16 08:20 1 DROPS Latanoprost (Xalatan Oph Soln) 1 drops HS OPB 10/13/16 21:00 11/12/16 20:59 10/13/16 21:06 1 DROPS Multivitamins (Multivitamin Tab) 1 tab DAILY PO 10/13/16 09:00 11/12/16 08:59 10/14/16 08:20 1 TAB Enteral Nutritional Formula (Boost Plus Vanilla) 1 can TID PO 10/13/16 09:00 11/12/16 08:59 10/14/16 08:23 1 CAN Paroxetine HCl (pAXil TAB) 20 mg DAILY PO 10/13/16 09:00 11/12/16 08:59 10/14/16 08:20 20 MG Nicotine (Nicoderm Cq 14MG Patch) 1 patch QAM TD 10/13/16 09:00 11/12/16 08:59 10/14/16 08:21 1 PATCH Miscellaneous (Remove Nicoderm Patch) 1 ea HS N/A 10/13/16 21:00 11/12/16 20:59 10/13/16 21:09 1 EA Miscellaneous Information (Pharmacist Discharge Med Rec Consult) 1 ea UD PRN N/A 10/13/16 00:15 11/12/16 00:14 Clopidogrel Bisulfate (plAVix TAB) 75 mg QAM PO 10/14/16 09:00 11/13/16 08:59 10/14/16 08:20 75 MG Heparin Sodium/ Dextrose 500 ml @ 15 mls/hr Q24H PRN IV 10/13/16 02:30 11/12/16 02:29 10/14/16 08:19 15 MLS/HR Ceftriaxone Sodium 1 gm/ Dextrose 50 ml @ 100 mls/hr DAILY@2000 IV 10/13/16 20:00 10/22/16 19:59 10/13/16 20:14 100 MLS/HR Objective Vital Signs Date Time Temp Pulse Resp B/P (MAP) Pulse Ox O2 Delivery O2 Flow Rate FiO2 10/14/16 08:00 98 Room Air 10/14/16 07:18 36.9 61 18 113/67 (82) 93 Room Air 10/14/16 04:51 36.7 56 16 104/53 (70) 97 Room Air 10/14/16 04:00 Room Air 10/14/16 00:00 36.6 62 18 115/72 (86) 98 Room Air 10/14/16 00:00 98 Room Air 10/13/16 20:00 36.9 61 16 119/67 (84) 98 Room Air 10/13/16 20:00 98 Room Air 10/13/16 16:00 98 Room Air 10/13/16 14:57 37.0 62 16 115/62 (79) 98 10/13/16 12:00 97 Room Air 10/13/16 11:41 36.9 63 18 119/69 (86) 96 Physical Exam General Appearance: no apparent distress, + cachetic, + thin Respiratory/Chest: chest non-tender, lungs clear, normal breath sounds, no respiratory distress, no accessory muscle use Cardiovascular: regular rate, rhythm, no edema, no murmur Extremities: + pertinent finding (cool L leg, no tenderness) Neurologic/Psychiatric: no motor/sensory deficits, alert, normal mood/affect Laboratory Results Last 24 Hours Test 10/13/16 16:00 10/14/16 06:23 Activated Partial Thromboplast Time 53.0 SECONDS 39.4 SECONDS Partial Thromboplastin Ratio 2.0 1.5 White Blood Count 4.45 K/uL Red Blood Count 3.51 M/uL Hemoglobin 11.5 g/dL Hematocrit 35.1 % Mean Corpuscular Volume 100.0 fL Mean Corpuscular Hemoglobin 32.8 pg Mean Corpuscular Hemoglobin Concent 32.8 g/dl RDW Standard Deviation 50.3 fL RDW Coefficient of Variation 13.8 % Platelet Count 264 K/uL Mean Platelet Volume 9.6 fL Sodium Level 147 mmol/L Potassium Level 3.9 mmol/L Chloride Level 114 mmol/L Carbon Dioxide Level 29 mmol/L Anion Gap 4.0 mmol/L Blood Urea Nitrogen 11 mg/dl Creatinine 0.58 mg/dl Est Creatinine Clear Calc Drug Dose 62.3 ml/min Estimated GFR () 102.3 Estimated GFR (Non- 88.3 BUN/Creatinine Ratio 18.1 Random Glucose 85 mg/dl Calcium Level 9.1 mg/dl Assessment and Plan This is a 76 year old female with a PMH of peripheral artery disease s/p stenting, hx. of DVT, refused anticoagulation in the past, hx. of breast CA s/p chemo and surgery, hx. of bladder CA s/p surgery, tobacco use disorder, depression presents with numbness/tingling of R LE and subsequently found to have R LE DVT Acute Nonocclusive R Superficial Femoral DVT 10/14 IV heparin for now discharge planning evaluation; case management for cost of Xarelto 10/13 patient presents with numbness/tingling Head CT and Brain MRI/MRA are negative Lower extremity Doppler suggestive of acute DVT had been on anticoagulation in the past, but refused to get bloodwork, so this was discontinued IV heparin started for now patient's daughter would like to talk about starting a NOAC CM consulted for cost of Xarelto UTI started on Rocephin urine culture pending Peripheral Artery Disease numbness/tingling likely secondary to the PAD has had stenting in the past monitor symptoms with IV heparin initiation should be on a statin - will need to discuss Depression recently restarted on Paxil spoke with mental health - will need time for this to take effect currently, no SI symptoms monitor DVT ppx IV heparin DNR
[2016-10-14] MEDS: CEFTRIAXONE SOD INJ 1 GM in DEXTROSE 5% ADD-VANTAGE 50ML 50 ML IV SCH (20:32)
[2016-10-14] MEDS: LATANOPROST 0.005% OP SOLN 2.5 ML BTL OPB SCH (20:34)
[2016-10-15] VITALS (7 sets, daily range): BP systolic 102–162; BP diastolic 54–72; PULSE 56–63; TEMP 36.6–37; O2SAT 93–98
[2016-10-15 05:56] LABS: HEMATOCRIT 33.6 % (37-47); MEAN CELL VOLUME 100.6 fL (80-100); MEAN CORPUSCULAR HEMOGLOBIN 32.9 pg (25-34); MEAN CORPUSCULAR HGB CONC 32.7 g/dl (32-36); MEAN PLATELET VOLUME 9.4 fL (7.4-10.4); PLATELET COUNT 242 K/uL (130-400); RED BLOOD COUNT 3.34 M/uL (4.2-5.4); WHITE BLOOD COUNT 5.05 K/uL (4.8-10.8)
[2016-10-15 06:17] LABS: PARTIAL THROMBOPLASTIN RATIO 1.7
[2016-10-15] MEDS ORDERED: HEPARIN IV BOLUS 2,000 UNIT in SYRINGE 0 ML IV STA (06:42)
[2016-10-15 06:47] LABS: BUN/CREATININE RATIO 15.7 (10-20); CREATININE 0.65 mg/dl (0.60-1.20); POTASSIUM 3.8 mmol/L (3.5-5.1)
[2016-10-15] MEDS: HEPARIN 25,000 UNIT/500ML D5W 500 ML IV PRN (07:10)
[2016-10-15] MEDS: BOOST PLUS VANILLA PO SCH ×4 (08:02→14:24)
[2016-10-15] MEDS: PAROXETINE 20 MG TAB PO SCH (08:03)
[2016-10-15] MEDS: DORZOLAMIDE/TIMOLOL 22.3/6.8MG/ML 10 ML BTL OPB SCH (08:03)
[2016-10-15] MEDS: NICOTINE 14 MG/24 HR TDSY TD SCH (08:03)
[2016-10-15] MEDS: CLOPIDOGREL BISULFATE 75 MG TAB PO SCH (08:03)
[2016-10-15] MEDS: MULTIVITAMIN TAB PO SCH (08:03)
[2016-10-15] MEDS: BRIMONIDINE TARTRATE-P 0.15% 5 ML BTL OPB SCH (08:03)
[2016-10-15] MEDS ORDERED: RIVA1TAB7 PO ×2 (11:49→11:50)
--- NOTE | 2016-10-15 16:24 | Progress Note ---
Subjective Date of Service: Oct 15, 2016. Subjective Pt evaluation today including: conversation w/ patient, physical exam, lab review, review of studies, review of inpatient medication list Saw/examined the patient in room 275 She's doing well, no complaints at this time Eager to go home Problem List Medical Problems: (1) DVT (deep venous thrombosis) Status: Chronic Review of Systems Constitutional: No fever, No chills Respiratory: No shortness of breath Cardiac: No chest pain Abdomen: No pain, No nausea, No vomiting, No diarrhea Medications Current Inpatient Medications Medications (Trade) Dose Ordered Sig/Nato Route Start Time Stop Time Status Last Admin Dose Admin Acetaminophen (Tylenol Tab) 650 mg Q4H PRN PO 10/12/16 23:45 11/11/16 23:44 10/13/16 15:42 650 MG Nitroglycerin (Nitrostat Tab) 0.4 mg UD PRN SL 10/12/16 23:45 11/11/16 23:44 Tramadol HCl (Ultram Tab) 25 mg Q6H PRN PO 10/12/16 23:45 11/11/16 23:44 Hydromorphone HCl (Dilaudid Inj) 0.5 mg Q3H PRN IV 10/12/16 23:45 10/26/16 23:44 Ondansetron HCl (Zofran Inj) 4 mg Q6H PRN IV 10/12/16 23:45 11/11/16 23:44 Brimonidine Tartrate (Alphagan-P 0.15% Oph Soln) 1 drops BID OPB 10/13/16 09:00 11/12/16 08:59 10/15/16 08:03 1 DROPS Dorzolamide/ Timolol (Cosopt Op Soln) 1 drops BID OPB 10/13/16 09:00 11/12/16 08:59 10/15/16 08:03 1 DROPS Latanoprost (Xalatan Oph Soln) 1 drops HS OPB 10/13/16 21:00 11/12/16 20:59 10/14/16 20:34 1 DROPS Multivitamins (Multivitamin Tab) 1 tab DAILY PO 10/13/16 09:00 11/12/16 08:59 10/15/16 08:03 1 TAB Enteral Nutritional Formula (Boost Plus Vanilla) 1 can TID PO 10/13/16 09:00 11/12/16 08:59 10/15/16 14:24 1 CAN Paroxetine HCl (pAXil TAB) 20 mg DAILY PO 10/13/16 09:00 11/12/16 08:59 10/15/16 08:03 20 MG Nicotine (Nicoderm Cq 14MG Patch) 1 patch QAM TD 10/13/16 09:00 11/12/16 08:59 10/15/16 08:03 1 PATCH Miscellaneous (Remove Nicoderm Patch) 1 ea HS N/A 10/13/16 21:00 11/12/16 20:59 10/14/16 20:33 1 EA Clopidogrel Bisulfate (plAVix TAB) 75 mg QAM PO 10/14/16 09:00 11/13/16 08:59 10/15/16 08:03 75 MG Heparin Sodium/ Dextrose 500 ml @ 16 mls/hr Q24H PRN IV 10/13/16 02:30 11/12/16 02:29 10/15/16 07:10 16 MLS/HR Ceftriaxone Sodium 1 gm/ Dextrose 50 ml @ 100 mls/hr DAILY@2000 IV 10/13/16 20:00 10/22/16 19:59 10/14/16 20:32 100 MLS/HR Objective Vital Signs Date Time Temp Pulse Resp B/P (MAP) Pulse Ox O2 Delivery O2 Flow Rate FiO2 10/15/16 15:15 36.6 60 18 134/72 (92) 98 Room Air 10/15/16 12:00 93 Room Air 10/15/16 08:30 93 Room Air 10/15/16 07:35 142/72 (95) 162/72 (102) 10/15/16 07:15 37.0 56 17 102/56 (71) 96 10/15/16 04:05 36.9 63 18 115/54 (74) 97 Room Air 10/15/16 04:00 Room Air 10/15/16 00:00 Room Air 10/14/16 23:35 37.0 71 18 108/48 (68) 96 Room Air 10/14/16 20:00 Room Air 10/14/16 20:00 36.9 65 18 116/70 (85) 97 Room Air Physical Exam General Appearance: no apparent distress Respiratory/Chest: no respiratory distress, no accessory muscle use Extremities: normal range of motion, non-tender, normal inspection, no pedal edema, no calf tenderness, + pertinent finding (L LE cooler than R LE) Laboratory Results Last 24 Hours Test 10/15/16 05:36 10/15/16 13:04 White Blood Count 5.05 K/uL Red Blood Count 3.34 M/uL Hemoglobin 11.0 g/dL Hematocrit 33.6 % Mean Corpuscular Volume 100.6 fL Mean Corpuscular Hemoglobin 32.9 pg Mean Corpuscular Hemoglobin Concent 32.7 g/dl RDW Standard Deviation 50.6 fL RDW Coefficient of Variation 13.8 % Platelet Count 242 K/uL Mean Platelet Volume 9.4 fL Activated Partial Thromboplast Time 43.2 SECONDS 52.5 SECONDS Partial Thromboplastin Ratio 1.7 2.0 Sodium Level 145 mmol/L Potassium Level 3.8 mmol/L Chloride Level 113 mmol/L Carbon Dioxide Level 28 mmol/L Anion Gap 4.0 mmol/L Blood Urea Nitrogen 10 mg/dl Creatinine 0.65 mg/dl Est Creatinine Clear Calc Drug Dose 55.6 ml/min Estimated GFR () 98.6 Estimated GFR (Non- 85.0 BUN/Creatinine Ratio 15.7 Random Glucose 82 mg/dl Calcium Level 9.0 mg/dl Assessment and Plan This is a 76 year old female with a PMH of peripheral artery disease s/p stenting, hx. of DVT, refused anticoagulation in the past, hx. of breast CA s/p chemo and surgery, hx. of bladder CA s/p surgery, tobacco use disorder, depression presents with numbness/tingling of R LE and subsequently found to have R LE DVT Acute Nonocclusive R Superficial Femoral DVT 10/15 IV heparin CM aware of plan for Xarelto, awaiting cost Xarelto vs. Coumadin/Lovenox bridge depending on cost 10/14 IV heparin for now discharge planning evaluation; case management for cost of Xarelto 10/13 patient presents with numbness/tingling Head CT and Brain MRI/MRA are negative Lower extremity Doppler suggestive of acute DVT had been on anticoagulation in the past, but refused to get bloodwork, so this was discontinued IV heparin started for now patient's daughter would like to talk about starting a NOAC CM consulted for cost of Xarelto UTI, E. coli can stop Rocephin after three days Peripheral Artery Disease numbness/tingling likely secondary to the PAD has had stenting in the past monitor symptoms with IV heparin initiation should be on a statin - will need to discuss Depression recently restarted on Paxil spoke with mental health - will need time for this to take effect currently, no SI symptoms monitor DVT ppx IV heparin DNR
[2016-10-15] MEDS ORDERED: RIVAROXABAN TAB 15 MG TAB PO ONE (17:00)
[2016-10-15] MEDS ORDERED: XRL15 PO ×2 (17:40→17:42)
--- NOTE | 2016-10-15 17:44 | Discharge Instructions ---
Discharge Instructions Date of Service Oct 15, 2016. Admission Reason for Admission: Dvt, Numbness And Tingling Of Both Legs Discharge Discharge Diagnosis / Problem: R Acute DVT Discharge Goals Goal(s): Decrease discomfort, Improve function, Diagnostic testing, Therapeutic intervention Activity Recommendations Activity Limitations: resume your previous activity . Instructions / Follow-Up Instructions / Follow-Up Please follow-up with Dr. Paris on October 17 at 10:45AM * Please take Xarelto 15mg twice a day for 21 days * You will then have to switch to Xarelto 20mg once daily Current Hospital Diet Patient's current hospital diet: AHA Diet (Heart Healthy) Discharge Diet Recommended Diet: AHA Diet (Heart Healthy) Pending Studies Studies pending at discharge: no Laboratory Results Lipid Panel Test 10/13/16 08:26 Range/Units Triglycerides Level 84 0-150 mg/dl Cholesterol Level 151 0-200 mg/dl HDL Cholesterol 54 mg/dl Cholesterol/HDL Ratio 2.8 LDL Cholesterol, Calculated 80 mg/dl Medical Emergencies . Who to Call and When: Medical Emergencies: If at any time you feel your situation is an emergency, please call 911 immediately. . Non-Emergent Contact Non-Emergency issues call your: Primary Care Provider . . "Provider Documentation" section prepared by Sofy Patel. . VTE Core Measure Inpt VTE Proph given/why not?: Other Anticoagulation (IV heparin)
--- NOTE | 2016-10-15 17:48 | Discharge Summary ---
Discharge Summary Date of Service Oct 15, 2016. Discharge Summary Admission Date: Oct 12, 2016 at 23:20 Discharge Date: Oct 15, 2016 Discharge Disposition: Home Principal Diagnosis: Acute R Femoral Vein DVT Medication Reconciliation New Medications: Rivaroxaban (Xarelto) 15 Mg Tab 15 MG PO BID for 21 Days, #42 TABS Continued Medications: Acetaminophen (Tylenol) 500 Mg Tab 500 MG PO Q6 PRN for Pain, TAB Aspirin (Aspirin Ec) 81 Mg Tab 81 MG PO DAILY Brimonidine Tartrate Oph (Alphagan P Oph) 0.15 % Mavis 1 DROP OPB BID, BTL Diphenoxylate/Atropine (Lomotil) Tab 1 TAB PO QID PRN for Diarrhea, TAB Dorzolamide Hcl-Timolol Maleat (Cosopt Oph) 1 Mavis Mavis 1 DROPS BID, #10 ML 3 Refills Latanoprost (Xalatan 0.005% Oph Mavis) 0.005 % Mavis 1 DROPS HS, #2.5 ML 3 Refills Multivitamin (Multivitamin) Tab 1 TAB PO DAILY, TAB Nutritional Supplements (Boost High Protein) 1 Liq Liq 1 BTL PO TID Paroxetine (Paxil) 20 Mg Tab 20 MG PO DAILY, TAB Triamterene/Hctz (Triamterene/Hctz 37.5-25MG) 1 Tab Tab 1 TAB PO DAILY, TAB Admission Information HPI (per Admitting provider): DATE OF ADMISSION: 10/12/2016 PRIMARY CARE DOCTOR: Dr. Sandhu. CHIEF COMPLAINT: Not feeling well, numbness on the right leg. HISTORY OF PRESENT ILLNESS: History obtained from patient, records and daughter. Patient is a fair historian Mhx Significant for dementia as per daughter, PVD status post surgery, ongoing tobacco abuse, history of breast cancer, right status post surgery, chemoradiation, bladder cancer status post surgery. Past history of anticoagulation for PVD or blood clot as per daughter. Last week, patient not feeling well, constant numbness on the right leg. Chronic numbness on the left leg. No chest pain, no shortness of breath. Appetite is not too good. Denies abdominal pain, bladder symptoms. Patient saw her PCP few days ago, complaining of some weight loss and fatigue and depression. Denies suicidality. At the Emergency Room, the patient nonocclusive DVT noted on the right saphenofemoral vein, IV heparin started in the Emergency Room. IV Ceftriaxone also given for UTI. MEDICAL HISTORY: As above. SURGERIES: Mastectomy, urologic procedures, cataract surgery, hernia repair. HOME MEDICATIONS: Include Boost, triamterene, latanoprost, aspirin, multivitamins, dorzolamide, and brimonidine. ALLERGIES: No known drug allergies. FAMILY HISTORY: Diabetes. PERSONAL AND SOCIAL HISTORY: Ongoing tobacco abuse 1/2-1 pack daily. No chronic intake of alcoholic beverages. Has been living with daughter and son-in-law since last year when daughter got patient from [place] where she had been living by herself. Previously worked as a nurse aide. REVIEW OF SYSTEMS: As per HPI, all other ROS negative. PHYSICAL EXAMINATION: VITAL SIGNS: Blood pressure was noted to be 128/70, pulse rate is 16, temperature 37.1, and sats 98 on room air. GENERAL: Noted to be comfortable, no respiratory distress. Looks younger for stated age. SKIN: Normal color. HEENT: [place] palpebral conjunctivae. Dry mucosa. NECK: Supple. CHEST: Clear to auscultation. HEART: Regular rate and rhythm. ABDOMEN: Soft. NT EXTREMITIES: No edema, no tenderness. NEUROLOGIC: No gross focality. LABORATORY AND IMAGING DATA: Hemoglobin was noted to be 13.4, hematocrit 39, white cells 6.4, platelets noted to be 279. Sodium 136, potassium 3.5, chloride 105, CO2 31, BUN 16, creatinine 0.7, glucose 188. CT head initial read, no acute intracranial pathology. Ultrasound of the leg showed acute appearing nonocclusive DVT, right proximal superficial femoral vein. UA WBCs, nitrite positive ASSESSMENT: 1. Right lower extremity numbness of one week duration ddx : cerebrovascular accident (?ASA failure), Lyme neuropathy. 2. Hypertension, stable. 3. Recurrent DVT As per daughter, patient taken off anticoag by PCP because patient refused requisite periodic labwork during previous residency in [place]. 4. right breast cancer status post surgery, chemoradiation 5. bladder cancer status post surgery. 6. depression, suboptimal as per patient 7. UTI, px not septic 8. Dementia as per daughter, no documentation of diagnosis in outpatient records 9. ongoing tobacco abuse PLAN: PCU, neuro checks. MRI/MRA of the brain. RE right lower extremity numbness. Plavix for now for possible aspirin failure until stroke definitely ruled out. May need additional stroke workup pending MRI results. Lyme screen low dose IV Heparin for now for DVT. (Daughter agreeable with anti-coagulation for now until able to confer with other family members with regard to decision for long-term anticoagulation. Hold vascular Surgery Consult for IVC filter placement for now pending definitive family decision. ER physician had already contacted Dr. Pollard.) Urine cultures, IV Ceftriaxone for now. Nicotine patch. Psych consult RE depression. PT, OT eval. DVT prophylaxis, Heparin. DO NOT RESUSCITATE as per daughter/POA (Miss Linda Perez). She requests updates from providers at [phone]. Hospital Course This is a 76 year old female with a PMH of peripheral artery disease s/p stenting, hx. of DVT, refused anticoagulation in the past, hx. of breast CA s/p chemo and surgery, hx. of bladder CA s/p surgery, tobacco use disorder, depression presents with numbness/tingling of R LE and subsequently found to have R LE DVT Acute Nonocclusive R Superficial Femoral DVT 10/15 IV heparin CM aware of plan for Xarelto, awaiting cost Xarelto vs. Coumadin/Lovenox bridge depending on cost 10/14 IV heparin for now discharge planning evaluation; case management for cost of Xarelto 10/13 patient presents with numbness/tingling Head CT and Brain MRI/MRA are negative Lower extremity Doppler suggestive of acute DVT had been on anticoagulation in the past, but refused to get bloodwork, so this was discontinued IV heparin started for now patient's daughter would like to talk about starting a NOAC CM consulted for cost of Xarelto UTI, E. coli can stop Rocephin after three days Peripheral Artery Disease numbness/tingling likely secondary to the PAD has had stenting in the past monitor symptoms with IV heparin initiation should be on a statin - will need to discuss Depression recently restarted on Paxil spoke with mental health - will need time for this to take effect currently, no SI symptoms monitor DVT ppx IV heparin DNR Total time spent on discharge = 45 minutes This includes examination of the patient, discharge planning, medication reconciliation, and communication with other providers. Discharge Instructions Please follow-up with Dr. Paris on October 17 at 10:45AM * Please take Xarelto 15mg twice a day for 21 days * You will then have to switch to Xarelto 20mg once daily
== END 2016-10-15 18:30 | disposition home or self-care (01) | DRG 300 ==
LOC: C.EDB 16:12 → C.MED 23:20 → EDBEDREQSVC 23:21 → ENRESERV 23:26
PROVIDERS: ADMIT Internal Medicine; ATTEND Family Medicine
DX: I82.890 Acute embolism and thrombosis of other specified veins (principal); N39.0 Urinary tract infection, site not specified; A69.20 Lyme disease, unspecified; G57.93 Unspecified mononeuropathy of bilateral lower limbs; I73.9 Peripheral vascular disease, unspecified; F03.90 Unspecified dementia, unspecified severity, without behavioral disturbance, psychotic disturbance, mood disturbance, and anxiety; F17.210 Nicotine dependence, cigarettes, uncomplicated; G62.9 Polyneuropathy, unspecified; F32.9 Major depressive disorder, single episode, unspecified; R20.0 Anesthesia of skin; Z66 Do not resuscitate; J44.9 Chronic obstructive pulmonary disease, unspecified; Z79.82 Long term (current) use of aspirin; Z79.899 Other long term (current) drug therapy; Z95.5 Presence of coronary angioplasty implant and graft; Z91.81 History of falling; Z92.21 Personal history of antineoplastic chemotherapy; Z92.3 Personal history of irradiation

== ENCOUNTER 2016-12-08 08:16 | Emergency (ER) | payer OTHER ==
[~2016-12-08] VITALS: Ht 175.3 cm; Wt 46.5 kg
[~2016-12-08 08:16] MED LIST changes: -ACET-1256 PO; -ASPI81TA28 PO; -BRIM0.15 OPB; -DIPH-416 PO; -DORZ2SOL20; -LATA0.5S; -MULT-506 PO; -RIVA1TAB7 PO
[2016-12-08 08:19] VITALS: TEMP 36.4; Ht 175.3 cm; Wt 46.5 kg
[2016-12-08] MEDS ORDERED: ALBUTEROL HFA 8 GM INHALER INH ONE (08:45)
--- NOTE | 2016-12-08 08:45 | EMERGENCY ROOM VISIT NOTE ---
History Report prepared by Isael: Alejandra Reno Under the Supervision of: Dr. Daniel Nuñez M.D. First contact with patient: 08:32 Chief Complaint: SHORTNESS OF BREATH Stated Complaint: SOB Nursing Triage Summary: Pt daughter states patient woke her at 0430 feeling SOB. Pt denies SOB at this time. Pt daughter states patient has some dementia, she's beent taking care of her for a year and it seems to progressively get worse. Pt denies urinary symptoms. Pt denies cought except "maybe a cigarette cough" Pt c/o difficulty hearing and ringing in left ear x 1 week. History of Present Illness The patient is a 76 year old female who presents to the Emergency Room with complaints of persistent shortness of breath that began yesterday. The patient states that she is a smoker and has a history of COPD and emphysema. She denies having any inhalers at home. The patient denies any recent sick contacts. She states that she has had bronchitis in the past. The patient reports ear ringing today, but denies any ear pressure. She denies any fever, increased cough, vomiting, or diarrhea. The patient denies any recent falls. Per the patient's daughter, the patient has a history of dementia, noting that it has been worsening. She states that the patient has been drinking an increased amount of alcohol and falling. Source of History: patient Onset: yesterday Position: other (global) Quality: other (shortness of breath) Timing: other (persistent) Associated Symptoms: No fevers, No cough, No vomiting, No diarrhea Review of Systems See HPI for pertinent positives & negatives. A total of 10 systems reviewed and were otherwise negative. Past Medical & Surgical Medical Problems: (1) Anxiety (2) COPD (chronic obstructive pulmonary disease) (3) DVT (deep venous thrombosis) (4) History of breast cancer (5) History of cancer of urethra (6) IBS (irritable bowel syndrome) (7) PAD (peripheral artery disease) (8) Tobacco use disorder Surgical Problems: (1) History of cataract surgery (2) History of intravascular stent placement (3) S/P hernia repair (4) S/P mastectomy Family History Cancer Diabetes mellitus FH: heart disease FHx: lung disease Hypertension Social History Smoking Status: Current Every Day Smoker Smokeless Tobacco Use: No Alcohol Use: occasionally Marital Status: single Housing Status: lives with family Occupation Status: retired Current/Historical Medications Scheduled Albuterol Hfa (Ventolin Hfa), 3 PUFFS INH Q6H Aspirin (Aspirin Ec), 81 MG PO DAILY Azithromycin (Zithromax Z-Vik), 0 PO UD Brimonidine Tartrate Oph (Alphagan P Oph), 1 DROP OPB BID Dorzolamide Hcl-Timolol Maleat (Cosopt Oph), 1 DROPS BID Latanoprost (Xalatan 0.005% Oph Mavis), 1 DROPS HS Multivitamin (Multivitamin), 1 TAB PO DAILY Prednisone (Prednisone), 0 PO DAILY Rivaroxaban (Xarelto), 15 MG PO BID Scheduled PRN Acetaminophen (Tylenol), 500 MG PO Q6 PRN for Pain Diphenoxylate/Atropine (Lomotil), 1 TAB PO QID PRN for Diarrhea Allergies Coded Allergies: No Known Allergies (Unverified , 12/08/16) Physical Exam Vital Signs Date Time Temp Pulse Resp B/P (MAP) Pulse Ox O2 Delivery O2 Flow Rate FiO2 12/08/16 11:12 59 16 146/74 98 12/08/16 10:31 56 20 163/76 12/08/16 09:17 58 12/08/16 09:11 Room Air 12/08/16 08:56 54 18 166/69 12/08/16 08:19 36.4 63 16 168/79 97 Nasal Cannula 12/08/16 08:19 97 Room Air Physical Exam GENERAL: Patient is in no acute distress. HEENT: No acute trauma, normocephalic atraumatic, mucous membranes moist, no nasal congestion, no scleral icterus. Wax noted, TMS though are clear. NECK: No stridor, no adenopathy, no meningismus, trachea is midline. LUNGS: Diminished breath sounds, no wheezing, breath sounds equal, no rhonchi. HEART: Without murmurs gallops or rubs, regular rate and rhythm. ABDOMEN: Soft, nontender, bowel sounds positive, no hernias, no peritonitis. EXTREMITIES: No cyanosis or edema, full range of motion of all the joints without pain or difficulty, no signs for acute trauma. NEUROLOGIC: No acute motor or sensory deficits, no focal weakness. SKIN: No rash, no jaundice, no diaphoresis. Medical Decision & Procedures ER Provider Diagnostic Interpretation: X-ray results as stated below per interpretation by me and the radiologist: SINGLE VIEW CHEST CLINICAL HISTORY: Dyspnea. FINDINGS: 2 AP, portable, upright chest radiographs are obtained. No prior studies are available for comparison at the time of dictation. The examination is significantly degraded by portable technique and patient rotation. The cardiomediastinal silhouette is unremarkable. There is atherosclerotic calcification of the thoracic aorta. Nonspecific interstitial thickening is noted. There is no airspace consolidation, pleural effusion, or pneumothorax. Apical scarring is observed. The skeletal structures are osteopenic. The bony thorax is grossly intact. Degenerative change and scoliosis are seen in the thoracic spine. IMPRESSION: No acute cardiopulmonary abnormality. Electronically signed by: Daniel Paredes M.D. 12/08/2016 9:00 AM Dictated Date/Time: 12/08/2016 8:59 AM Laboratory Results 12/08/16 09:15 Red Blood Count 4.13, Mean Corpuscular Volume 99.0, Mean Corpuscular Hemoglobin 32.9, Mean Corpuscular Hemoglobin Concent 33.3, Mean Platelet Volume 9.6, Neutrophils (%) (Auto) 67.6, Lymphocytes (%) (Auto) 21.6, Monocytes (%) (Auto) 8.8, Eosinophils (%) (Auto) 1.8, Basophils (%) (Auto) 0.2, Neutrophils # (Auto) 3.31, Lymphocytes # (Auto) 1.06, Monocytes # (Auto) 0.43, Eosinophils # (Auto) 0.09, Basophils # (Auto) 0.01 12/08/16 09:15 Test 12/08/16 09:15 White Blood Count 4.90 K/uL (4.8-10.8) Red Blood Count 4.13 M/uL (4.2-5.4) Hemoglobin 13.6 g/dL (12.0-16.0) Hematocrit 40.9 % (37-47) Mean Corpuscular Volume 99.0 fL (80-100) Mean Corpuscular Hemoglobin 32.9 pg (25-34) Mean Corpuscular Hemoglobin Concent 33.3 g/dl (32-36) Platelet Count 260 K/uL (130-400) Mean Platelet Volume 9.6 fL (7.4-10.4) Neutrophils (%) (Auto) 67.6 % Lymphocytes (%) (Auto) 21.6 % Monocytes (%) (Auto) 8.8 % Eosinophils (%) (Auto) 1.8 % Basophils (%) (Auto) 0.2 % Neutrophils # (Auto) 3.31 K/uL (1.4-6.5) Lymphocytes # (Auto) 1.06 K/uL (1.2-3.4) Monocytes # (Auto) 0.43 K/uL (0.11-0.59) Eosinophils # (Auto) 0.09 K/uL (0-0.5) Basophils # (Auto) 0.01 K/uL (0-0.2) RDW Standard Deviation 52.4 fL (36.4-46.3) RDW Coefficient of Variation 14.5 % (11.5-14.5) Immature Granulocyte % (Auto) 0.0 % Immature Granulocyte # (Auto) 0.00 K/uL (0.00-0.02) Anion Gap 7.0 mmol/L (3-11) Est Creatinine Clear Calc Drug Dose 49.3 ml/min Estimated GFR () 96.6 Estimated GFR (Non- 83.4 BUN/Creatinine Ratio 15.1 (10-20) Calcium Level 9.5 mg/dl (8.5-10.1) Troponin I < 0.015 ng/ml (0-0.045) Laboratory results reviewed by me. Medications Administered Medications (Trade) Dose Ordered Sig/Nato Route Start Time Stop Time Status Last Admin Dose Admin Prednisone (PredniSONE TAB) 40 mg NOW STAT PO 12/08/16 08:36 12/08/16 08:39 DC 12/08/16 08:57 40 MG Albuterol (Ventolin Hfa Inhaler) 3 puffs NOW ONCE INH 12/08/16 08:45 12/08/16 08:46 DC 12/08/16 08:57 3 PUFFS ECG Indication: SOB/dyspnea Rate (beats per minute): 49 Rhythm: sinus bradycardia Findings: no acute ischemic change, no ectopy, other (LVH present) ED Course 0833: The patient was evaluated in room B7. A complete history and physical exam was performed. 0836: Ordered Prednisone 40 mg PO. 0845: Ordered Albuterol 3 puffs INH. 1015: I reevaluated the patient and she is resting. I discussed the exam findings with her and and her daughter and I discussed the treatment plan. They verbalized complete understanding and agreement. Case Management is going to talk to them about possible placement options. 1040: Per case management the patient is okay to go home. 1045: I reevaluated the patient and she is doing well. The patient is ready for discharge. Medical Decision The patient is a 76 year old female who presents to the ED with complaints of shortness of breath. Differential diagnoses considered include dehydration, CHF , cardiac ischemia, bronchitis or pneumonia, anemia, exacerbation of COPD. There is no leukocytosis or concerning anemia. No significant electrolyte abnormality or kidney failure. EKG shows a sinus rhythm, no acute ischemia. Cardiac enzyme testing 1 is not consistent with acute cardiac injury. Chest x- ray shows no pneumonia, pneumothorax or mediastinal widening. The patient was given albuterol via [facility]I, she received oral prednisone. The patient is not hypoxic or toxic. I do believe she has bronchitis with a flare of her COPD. I did have case management talk to the patient and her daughter about their living situation. The patient will follow with the family doctor's office. She will return here for worsening symptoms. She is being discharged on Zithromax, prednisone and albuterol. Medication Reconcilliation Current Medication List: was personally reviewed by me Blood Pressure Screening Patient's blood pressure: Elevated blood pressure Blood pressure disposition: Referred to PCP Impression Primary Impression: Bronchitis Additional Impression: COPD exacerbation Scribe Attestation The scribe's documentation has been prepared under my direction and personally reviewed by me in its entirety. I confirm that the note above accurately reflects all work, treatment, procedures, and medical decision making performed by me. Departure Information Dispostion Home / Self-Care Prescriptions Azithromycin (ZITHROMAX Z-VIK) 250 Mg Tab 0 PO UD, #1 PKT Prov: Daniel Nuñez M.D. 12/08/16 Prednisone (Prednisone) 20 Mg Tab 0 PO DAILY, #14 TAB 3 TABS DAILY FOR 2 DAYS, THEN 2 TABS DAILY FOR 2 DAYS, THEN 1 TAB DAILY FOR 2 DAYS, THEN 1/2 TAB DAILY FOR 2 DAYS. Prov: Daniel Nuñez M.D. 12/08/16 Albuterol Hfa (VENTOLIN HFA) 200 Puffs/[id number] Mcg Aers 3 PUFFS INH Q6H, #1 INHALER 2 Refills Prov: Daniel Nuñez M.D. 12/08/16 Referrals Clarisse Singh Forms HOME CARE DOCUMENTATION FORM, IMPORTANT VISIT INFORMATION Patient Instructions My [facility] Additional Instructions prednisone as directed albuterol 3 puffs every 6 hours zpac as directed see lacho mancia this week [facility] for the social situation we discussed return for worsening symptoms or worsening breathing Problem Qualifiers
--- NOTE | 2016-12-08 09:02 | DIAGNOSTIC IMAGING REPORT ---
SINGLE VIEW CHEST CLINICAL HISTORY: Dyspnea. FINDINGS: 2 AP, portable, upright chest radiographs are obtained. No prior studies are available for comparison at the time of dictation. The examination is significantly degraded by portable technique and patient rotation. The cardiomediastinal silhouette is unremarkable. There is atherosclerotic calcification of the thoracic aorta. Nonspecific interstitial thickening is noted. There is no airspace consolidation, pleural effusion, or pneumothorax. Apical scarring is observed. The skeletal structures are osteopenic. The bony thorax is grossly intact. Degenerative change and scoliosis are seen in the thoracic spine. IMPRESSION: No acute cardiopulmonary abnormality. Electronically signed by: Daniel Paredes M.D. 12/08/2016 9:00 AM Dictated Date/Time: 12/08/2016 8:59 AM
[2016-12-08 09:37] LABS: BASO % 0.2 %; BASO ABS # 0.01 K/uL (0-0.2); COMPLETE YES; EOS % 1.8 %; HEMATOCRIT 40.9 % (37-47); LYMPH % 21.6 %; LYMPH ABS # 1.06 K/uL (1.2-3.4); MEAN CORPUSCULAR HEMOGLOBIN 32.9 pg (25-34); MEAN CORPUSCULAR HGB CONC 33.3 g/dl (32-36); MEAN PLATELET VOLUME 9.6 fL (7.4-10.4); MONO % 8.8 %; NEUT % 67.6 %; PLATELET COUNT 260 K/uL (130-400); RED BLOOD COUNT 4.13 M/uL (4.2-5.4)
[2016-12-08 09:56] LABS: BUN/CREATININE RATIO 15.1 (10-20); CALCIUM 9.5 mg/dl (8.5-10.1); CREATININE 0.69 mg/dl (0.60-1.20); POTASSIUM 3.3 mmol/L (3.5-5.1)
[2016-12-08] MEDS ORDERED: PRED20TA PO (10:43)
[2016-12-08] MEDS ORDERED: VNTHFA/IN INH (10:43)
[2016-12-08] MEDS ORDERED: AZITTAB PO (10:43)
[2016-12-08 11:12] VITALS: BP 146/74; PULSE 59; O2SAT 98
[2016-12-08] MEDS ORDERED: LATA0.5S (18:24)
[2016-12-08] MEDS ORDERED: DIPH-416 PO (18:24)
[2016-12-08] MEDS ORDERED: ASPI81TA28 PO (18:24)
[2016-12-08] MEDS ORDERED: BRIM0.15 OPB (18:24)
[2016-12-08] MEDS ORDERED: DORZ2SOL20 (18:24)
[2016-12-08] MEDS ORDERED: MULT-506 PO (18:24)
[2016-12-08] MEDS ORDERED: ACET-1256 PO (18:24)
== END 2016-12-08 11:01 | disposition home or self-care (01) ==
LOC: C.EDB 08:17
DX: J40 Bronchitis, not specified as acute or chronic (principal); J44.1 Chronic obstructive pulmonary disease with (acute) exacerbation; Z86.718 Personal history of other venous thrombosis and embolism; Z85.3 Personal history of malignant neoplasm of breast; Z85.59 Personal history of malignant neoplasm of other urinary tract organ; I73.9 Peripheral vascular disease, unspecified; F17.200 Nicotine dependence, unspecified, uncomplicated; Z98.49 Cataract extraction status, unspecified eye; Z98.890 Other specified postprocedural states; Z90.10 Acquired absence of unspecified breast and nipple; Z83.3 Family history of diabetes mellitus; Z82.49 Family history of ischemic heart disease and other diseases of the circulatory system; Z79.82 Long term (current) use of aspirin; Z79.01 Long term (current) use of anticoagulants

== ENCOUNTER 2018-08-26 19:50 | Inpatient (IN) ==
[2018-08-26] MEDS ORDERED: ACETAMINOPHEN 1,000 MG/100 ML VIAL IV STA (19:59)
[2018-08-26] MEDS ORDERED: SODIUM CHLORIDE 0.9% 500 ML IV SCH (20:00)
--- NOTE | 2018-08-26 20:12 | Emergency Department Note ---
Entered by Dirk Taveras acting as a scribe for Daneil Nuñez MD History of Present Illness General Chief complaint: Fall Stated complaint: FALL Time Seen by Provider: 08/26/18 19:51 Source: patient, EMS and other (nurse) Limitations: other (dementia) History of Present Illness Onset (ago): hour(s) (a couple) Location: back (lower) Pain Consistency: + other (states that back pain is chronic) Quality: + other (fall) Associated symptoms: + other (denies head trauma) History is limited secondary to dementia. The patient is an 78 year old female who presents to the Emergency Room after a fall occurring a couple of hours prior to arrival. EMS reports that the patient was at home with family when she fell from a standing position. Afterward the pa tient was reportedly complaining that she was unable to walk. The patient reports some lower back pain but states that it is chronic. She states that she did not hit her head when he fell, and she is denying significant head or neck pain. The family had reportedly stated that the patients feet were numb, but the patient currently denies this. The patient states that she has been eating and drinking today. She reports that she does not take blood thinners. The nurse states there were no reported illnesses in the past couple of days. Home Medications Home Medications Medication Instructions Recorded Confirmed Type No Known Home Medications 07/14/18 08/26/18 History Allergies Allergy/AdvReac Type Severity Reaction Status Date / Time No Known Allergies Allergy Verified 08/26/18 21:06 Past Med/Surg History Medical History COPD (chronic obstructive pulmonary disease) (Chronic) IBS (irritable bowel syndrome) (Chronic) PAD (peripheral artery disease) (Chronic) Breast cancer (Resolved) Urethra cancer (Resolved) Family History Other Family history non-contributory Social History Feels Safe at Home: Yes Smoking Status: Unknown if ever smoked Review of Systems Other (Unobtainable secondary to dementia) Physical Exam Vital Signs Vital Signs - 24 hr 08/26/18 19:57 08/26/18 20:06 08/26/18 20:34 Temperature 37.4 C Temperature Source Oral Sepsis Recent Fever Within 48 Hours No Sepsis Action Taken by Nursing No Action Required Pulse Rate 81 Pulse Rate [Apical] Pulse Rhythm Regular Pulse Strength Normal Respiratory Rate 18 Respiratory Effort / Characteristics Non-Labored Spontaneous Respiratory Depth Normal Respiratory Pattern Regular Blood Pressure [Left Arm] 148/76 H Blood Pressure Mean [Left Arm] 100 Pulse Oximetry 93 92 Oxygen Delivery Method Room Air Room Air 08/26/18 22:17 Temperature Temperature Source Sepsis Recent Fever Within 48 Hours Sepsis Action Taken by Nursing Pulse Rate Pulse Rate [Apical] 74 Pulse Rhythm Pulse Strength Respiratory Rate 18 Respiratory Effort / Characteristics Respiratory Depth Respiratory Pattern Blood Pressure [Left Arm] Blood Pressure Mean [Left Arm] Pulse Oximetry 95 Oxygen Delivery Method Room Air GENERAL: Patient is in no acute distress. HEENT: No acute trauma, normocephalic atraumatic, mucous membranes dry, no nasal congestion, no scleral icterus. NECK: No stridor, no adenopathy, no meningismus, trachea is midline, nontender posterior cervical spine, no pain with movement of neck from side to side. LUNGS: Clear to auscultation bilaterally, no wheeze, no rhonchi, breath sounds equal. HEART: Without murmurs gallops or rubs, regular rate and rhythm. ABDOMEN: Soft, nontender, bowel sounds positive, no hernias, no peritonitis. BACK: No tenderness of the thoracic or lumbar spine. EXTREMITIES: No cyanosis or edema, full range of motion of all the joints without pain or difficulty, no signs for acute trauma. NEUROLOGIC: Some confusion consistent with dementia, moves all extremities, awake and alert. SKIN: No rash, no jaundice, no diaphoresis. Warm to touch. Course 1953: The patient was evaluated in room C9. A complete history and physical examination were performed. 2210: I updated the patient and her daughter at bedside. An ambulatory trial will be performed. 2216: The patient failed her ambulatory trial and was not able to walk due to complaints of back pain. CT imaging of the back will be obtained. 2220: I consulted Dr. Gina Holm Hospitalist. The patient will be reevaluated for hospitalization. 2228: I updated the daughter. She is agreeable to the patients hospitalization, and the daughter is going home. Administered Medications Discontinued Medications Acetaminophen (Ofirmev) 1,000 mg in 100 mls @ 400 mls/hr IV NOW STA Stop: 08/26/18 20:13 Last Infusion: 08/26/18 21:17 Dose: 0 mls/hr Documented by: [id number] Admin: 08/26/18 20:27 Dose: 400 mls/hr Documented by: [id number] Sodium Chloride (Nss) 500 mls @ 999 mls/hr IV .Q31M BRIDGETT Stop: 08/26/18 20:30 Last Infusion: 08/26/18 21:17 Dose: 0 mls/hr Documented by: [id number] Admin: 08/26/18 20:30 Dose: 999 mls/hr Documented by: [id number] Medical Decision Making Differential Diagnosis Differential diagnosis: intracranial bleeding, stroke, dehydration, electrolyte imbalance, anemia, thoracic or lumbar fracture, UTI, pneumonia, sepsis or bacteremia Medical Records Attestation: I reviewed the patient's medical records. Home Medications Current Medication List: was personally reviewed by me Laboratory Data Attestation: I reviewed the patient's lab results. Result diagrams: 08/26/18 20:33 08/26/18 20:33 Lab Results 08/26/18 08/26/18 08/26/18 Range/Units 20:33 20:33 20:33 WBC 8.67 (4.8-10.8) K/uL RBC 4.04 L (4.2-5.4) M/uL Hgb 12.3 (12.0-16.0) g/dL Hct 37.3 (37-47) % MCV 92.3 (80-100) fL MCH 30.4 (25-34) pg MCHC 33.0 (32-36) g/dL RDW Std Deviation 49.2 H (36.4-46.3) fL RDW Coeff of Gem 14.5 (11.5-14.5) % Plt Count 173 (130-400) K/uL MPV 9.8 (7.4-10.4) fL Immature Gran % (Auto) 0.5 % Neut % (Auto) 83.9 % Lymph % (Auto) 8.9 % [place] % (Auto) 6.1 % Eos % (Auto) 0.6 % Baso % (Auto) 0.0 % Immature Gran # (Auto) 0.04 H (0.00-0.02) K/uL Neut # (Auto) 7.28 H (1.4-6.5) K/uL Lymph # (Auto) 0.77 L (1.2-3.4) K/uL [place] # (Auto) 0.53 (0.11-0.59) K/uL Eos # (Auto) 0.05 (0-0.5) K/uL Baso # (Auto) 0.00 (0-0.2) K/uL Sodium 142 (136-145) mmol/L Potassium 3.4 L (3.5-5.1) mmol/L Chloride 107 (98-107) mmol/L Carbon Dioxide 28 (21-32) mmol/L Anion Gap 7.0 (3-11) BUN 14 (7-18) mg/dl Creatinine 0.80 (0.6-1.2) mg/dl Est Cr Clr Drug Dosing 39.1 ml/min Est GFR ( Amer) 80.7 Est GFR (Non-Af Amer) 69.6 BUN/Creatinine Ratio 17.2 (10-20) Glucose 101 H (70-99) mg/dl Lactate 0.9 (0.4-2.0) mmol/L Calcium 9.0 (8.5-10.1) mg/dl Magnesium 2.1 (1.8-2.4) mg/dl Total Bilirubin 0.6 (0.2-1) mg/dl AST 22 (15-37) U/L ALT 26 (12-78) U/L Alkaline Phosphatase 91 (45-117) U/L Troponin I < 0.015 (0-0.045) ng/ml Total Protein 6.5 (6.4-8.2) gm/dl Albumin 3.2 L (3.4-5.0) gm/dl Globulin 3.3 (2.5-4.0) gm/dl Albumin/Globulin Ratio 1.0 (0.9-2) TSH 2.510 (0.300-4.500) uIu/ml Urine Color Urine Appearance (Clear) Urine pH (4.5-7.5) Ur Specific [place] (1.000-1.030) Urine Protein (Negative) Urine Glucose (UA) (Negative) Urine Ketones (Negative) Urine Blood (Negative) Urine Nitrite (Negative) Urine Bilirubin (Negative) Urine Urobilinogen (Negative) Ur Leukocyte Esterase (Negative) Urine WBC (Auto) (0-5) /hpf Urine RBC (Auto) (0-4) /hpf U Hyaline Cast (Auto) (0-5) /lpf U Epithel Cells (Auto) (0-5) /lpf Urine Bacteria (Auto) (Negative) Urine Yeast 08/26/18 Range/Units 21:35 WBC (4.8-10.8) K/uL RBC (4.2-5.4) M/uL Hgb (12.0-16.0) g/dL Hct (37-47) % MCV (80-100) fL MCH (25-34) pg MCHC (32-36) g/dL RDW Std Deviation (36.4-46.3) fL RDW Coeff of Gem (11.5-14.5) % Plt Count (130-400) K/uL MPV (7.4-10.4) fL Immature Gran % (Auto) % Neut % (Auto) % Lymph % (Auto) % [place] % (Auto) % Eos % (Auto) % Baso % (Auto) % Immature Gran # (Auto) (0.00-0.02) K/uL Neut # (Auto) (1.4-6.5) K/uL Lymph # (Auto) (1.2-3.4) K/uL [place] # (Auto) (0.11-0.59) K/uL Eos # (Auto) (0-0.5) K/uL Baso # (Auto) (0-0.2) K/uL Sodium (136-145) mmol/L Potassium (3.5-5.1) mmol/L Chloride (98-107) mmol/L Carbon Dioxide (21-32) mmol/L Anion Gap (3-11) BUN (7-18) mg/dl Creatinine (0.6-1.2) mg/dl Est Cr Clr Drug Dosing ml/min Est GFR ( Amer) Est GFR (Non-Af Amer) BUN/Creatinine Ratio (10-20) Glucose (70-99) mg/dl Lactate (0.4-2.0) mmol/L Calcium (8.5-10.1) mg/dl Magnesium (1.8-2.4) mg/dl Total Bilirubin (0.2-1) mg/dl AST (15-37) U/L ALT (12-78) U/L Alkaline Phosphatase (45-117) U/L Troponin I (0-0.045) ng/ml Total Protein (6.4-8.2) gm/dl Albumin (3.4-5.0) gm/dl Globulin (2.5-4.0) gm/dl Albumin/Globulin Ratio (0.9-2) TSH (0.300-4.500) uIu/ml Urine Color Yellow Urine Appearance Clear (Clear) Urine pH 7.0 (4.5-7.5) Ur Specific [place] 1.018 (1.000-1.030) Urine Protein Trace H (Negative) Urine Glucose (UA) Negative (Negative) Urine Ketones Trace H (Negative) Urine Blood Negative (Negative) Urine Nitrite Negative (Negative) Urine Bilirubin Negative (Negative) Urine Urobilinogen Negative (Negative) Ur Leukocyte Esterase Negative (Negative) Urine WBC (Auto) 1-5 (0-5) /hpf Urine RBC (Auto) 0-4 (0-4) /hpf U Hyaline Cast (Auto) 0 (0-5) /lpf U Epithel Cells (Auto) 20-30 H (0-5) /lpf Urine Bacteria (Auto) Negative (Negative) Urine Yeast Not Reportable Imaging Data Radiologist's Impression: Radiology results as stated below per my review and the radiologist's interpretation: XR chest 1V portable HISTORY: 78 years-old Female weakness acute weakness COMPARISON: Chest radiograph 07/14/2018 TECHNIQUE: Portable semierect supine AP view the chest FINDINGS: Cardiac silhouette appears unchanged. Emphysema with chronic interstitial coarsening. Hazy ill-defined opacities of the left upper lung may be projectional with associated patient rotation. Biapical pleural-parenchymal scarring/pleural thickening. No pneumothorax, pleural effusion or overt pulmonary edema. Degenerative changes of the shoulders and spine. IMPRESSION: Emphysema without acute process. The above report was generated using voice recognition software. It may contain grammatical, syntax or spelling errors. Electronically signed by: Brice Lange M.D. 08/26/2018 9:[address] head/brain wo con CLINICAL HISTORY: 78 years-old Female with fall, dementia. Acute head injury status post fall with dementia. TECHNIQUE: Multiple axial CT images of the head were obtained without contrast. A dose lowering technique was utilized adhering to the principles of ALARA. CT DOSE: 537.48 mGy.cm COMPARISON: Head CT 07/14/2018. FINDINGS: No acute intracranial hemorrhage, midline shift, intracranial mass, hydrocephalus, territorial ischemia or abnormal extra-axial collection. Age- related involutional changes. Extensive white matter hypodensities suggest chronic microvascular ischemic disease. Cerebral vascular calcifications are noted. Senescent calcifications of the lentiform nuclei. The calvarium is intact. The paranasal sinuses, mastoid air cells, and middle ear cavities are clear. IMPRESSION: No acute intracranial abnormality or calvarial fracture. The above report was generated using voice recognition software. It may contain grammatical, syntax or spelling errors. Electronically signed by: Brice Lange M.D. 08/26/2018 9:51 PM XR lumbar spine min 4V routine HISTORY: 78 years-old Female fall, pain acute low back pain status post fall COMPARISON: Chest radiograph 07/14/2018 TECHNIQUE: 5 views of the lumbar spine FINDINGS: Demineralized appearance of the bones. No acute fracture or subluxation of the l umbar spine identified. Moderate disc space narrowing at L4/L5 and L5-S1 with mild multilevel spondylitic spurring and mostly moderate multilevel facet arthrosis. Age-indeterminate 25% anterior endplate wedge deformities about the T12 and T11 vertebral bodies without retropulsion. IMPRESSION: 1. No acute fracture or subluxation of the lumbar spine. 2. Age-indeterminate T11 and T12 compression deformities without retropulsion, likely chronic. The above report was generated using voice recognition software. It may contain grammatical, syntax or spelling errors. Electronically signed by: Brice Lange M.D. 08/26/2018 9:33 PM XR pelvis 1-2V routine HISTORY: 78 years-old Female fall, pain acute pelvic pain and low back pain status post fall COMPARISON: Lumbar spine radiographs of same day TECHNIQUE: Single AP view of the pelvis FINDINGS: Moderate right and moderate to severe left hip posterior arthritis. Demineralized appearance of the bones. No acute fracture, dislocation or avascular necrosis. IMPRESSION: No acute fracture or dislocation. The above report was generated using voice recognition software. It may contain grammatical, syntax or spelling errors. Electronically signed by: Brice Lange M.D. 08/26/2018 9:31 PM ECG Data Attestation: I personally reviewed and interpreted this ECG as follows: Indication: weakness Rate (beats per minute): 81 Rhythm: normal sinus Findings: + other (LVH); no PVC and no ST elevation Blood Pressure Blood Pressure Findings: Elevated blood pressure Blood Pressure Disposition: further management by hospitalist Head Trauma GCS Score: 14 MDM Narrative There is no leukocytosis or concerning anemia. No significant electrolyte abnormality or kidney failure. Lactic acid level is not elevated making sepsis less likely. No concerning liver enzyme elevation. The patient appeared to be in a euthyroid state. Urinalysis does not show evidence for infection. Brain CT shows no acute bleed or mass-effect. Chest film shows COPD, no pneumonia or CHF. EKG shows a sinus rhythm, no acute ischemia. Cardiac enzyme testing x1 is not consistent with acute cardiac injury. Pelvis film did not show evidence for fracture. Lumbar spine series showed T11 and T12 compression fractures that were thought old as per radiology. No bony malalignment noted. Thoracic and lumbar spine CTs are pending. The patient received IV Tylenol, IV saline, she has been resting fairly comfortably. I spoke with the daughter, I spoke with the patient. Certainly, the compression fractures may be responsible for her discomfort. Attempts were made to get the patient off the stretcher. She was in too much pain to get off the stretcher and walk. She typically walks on her own as per the daughter. I do think the patient requires a hospital stay. I do think the compression fractures are responsible for her pain. The CT scans that have been ordered should help better evaluate for potential acute thoracic or lumbar injury. The patient is in no condition to be discharged. Her pain is not controlled and she cannot ambulate. I did speak to the patient and family, I spoke with the briefcase sewer. The on-call hospitalist was consulted. Impression & Plan Compression fracture, Weakness, Fall, Dementia Discharge Plan Visit Data Chief Complaint: Fall Stated Complaint: FALL ED Provider: Daniel Nuñez Discharge Problem: Compression fracture, Weakness, Fall, Dementia Patient Disposition: Being Evaluated by Hospitalist Forms Stand Alone Forms: My [employer] Prescriptions Prescriptions: No Action No Known Home Medications RF: 0 Referrals Referrals: PCP,NO [Primary Care Provider] - Discharge Problem: Fall Qualifiers: Encounter type: initial encounter Qualified Code(s): W19.XXXA - Unspecified fall, initial encounter Dementia Qualifiers: Dementia type: unspecified type Dementia behavioral disturbance: with behavioral disturbance Qualified Code(s): F03.91 - Unspecified dementia with behavioral disturbance The scribe's documentation has been prepared under my direction and personally reviewed by me in its entirety. I confirm that the note above accurately reflects all work, treatment, procedures, and medical decision making performed by me.
[2018-08-26 20:50] LABS: Eosinophils # (auto) 0.05 K/uL (0-0.5); Eosinophils % (auto) 0.6 %; Hematocrit (blood only) 37.3 % (37-47); Hemoglobin 12.3 g/dL (12.0-16.0); Immature Granulocytes # (auto) 0.04 K/uL (0.00-0.02); Immature Granulocytes % (auto) 0.5 %; Lymphocytes # (auto) 0.77 K/uL (1.2-3.4); Lymphocytes % (auto) 8.9 %; Mean Corpuscular Volume 92.3 fL (80-100); Mean Platelet Volume 9.8 fL (7.4-10.4); Monocytes # (auto) 0.53 K/uL (0.11-0.59); Monocytes % (auto) 6.1 %; Neutrophils # (auto) 7.28 K/uL (1.4-6.5); Neutrophils % (auto) 83.9 %; Platelet Count 173 K/uL (130-400); RDW Coefficient of Variation 14.5 % (11.5-14.5); RDW Standard Deviation 49.2 fL (36.4-46.3); Red Blood Count 4.04 M/uL (4.2-5.4); White Blood Count 8.67 K/uL (4.8-10.8)
[2018-08-26 21:06] LABS: Alanine Aminotransferase 26 U/L (12-78); Albumin Level 3.2 gm/dl (3.4-5.0); Aspartate Aminotransferase 22 U/L (15-37); BUN Creatinine Ratio 17.2 (10-20); Blood Urea Nitrogen 14 mg/dl (7-18); Carbon Dioxide 28 mmol/L (21-32); Chloride 107 mmol/L (98-107); Creatinine Clr Calc Pharmacy 39.1 ml/min; Est GFR (African American) 80.7; Est GFR (Non-African American) 69.6; Glucose 101 mg/dl (70-99); Magnesium 2.1 mg/dl (1.8-2.4); Potassium 3.4 mmol/L (3.5-5.1); Sodium 142 mmol/L (136-145)
[2018-08-26 21:17] LABS: Alkaline Phosphatase 91 U/L (45-117); Bilirubin,Total 0.6 mg/dl (0.2-1); Globulin 3.3 gm/dl (2.5-4.0); Total Protein 6.5 gm/dl (6.4-8.2); Troponin I < 0.015 ng/ml (0-0.045)
--- NOTE | 2018-08-26 21:31 | XRay Report ---
XR chest 1V portable HISTORY: 78 years-old Female weakness acute weakness COMPARISON: Chest radiograph 07/14/2018 TECHNIQUE: Portable semierect supine AP view the chest FINDINGS: Cardiac silhouette appears unchanged. Emphysema with chronic interstitial coarsening. Hazy ill-define d opacities of the left upper lung may be projectional with associated patient rotation. Biapical ple ural-parenchymal scarring/pleural thickening. No pneumothorax, pleural effusion or overt pulmonary ed nova. Degenerative changes of the shoulders and spine. IMPRESSION: Emphysema without acute process. The above report was generated using voice recognition software. It may contain grammatical, syntax o r spelling errors. Electronically signed by: Brice Lange M.D. 08/26/2018 9:30 PM
--- NOTE | 2018-08-26 21:32 | XRay Report ---
XR pelvis 1-2V routine HISTORY: 78 years-old Female fall, pain acute pelvic pain and low back pain status post fall COMPARISON: Lumbar spine radiographs of same day TECHNIQUE: Single AP view of the pelvis FINDINGS: Moderate right and moderate to severe left hip posterior arthritis. Demineralized appearance of the b ones. No acute fracture, dislocation or avascular necrosis. IMPRESSION: No acute fracture or dislocation. The above report was generated using voice recognition software. It may contain grammatical, syntax o r spelling errors. Electronically signed by: Brice Lange M.D. 08/26/2018 9:31 PM
--- NOTE | 2018-08-26 21:34 | XRay Report ---
XR lumbar spine min 4V routine HISTORY: 78 years-old Female fall, pain acute low back pain status post fall COMPARISON: Chest radiograph 07/14/2018 TECHNIQUE: 5 views of the lumbar spine FINDINGS: Demineralized appearance of the bones. No acute fracture or subluxation of the lumbar spine identifie d. Moderate disc space narrowing at L4/L5 and L5-S1 with mild multilevel spondylitic spurring and mos tly moderate multilevel facet arthrosis. Age-indeterminate 25% anterior endplate wedge deformities ab out the T12 and T11 vertebral bodies without retropulsion. IMPRESSION: 1. No acute fracture or subluxation of the lumbar spine. 2. Age-indeterminate T11 and T12 compression deformities without retropulsion, likely chronic. The above report was generated using voice recognition software. It may contain grammatical, syntax o r spelling errors. Electronically signed by: Brice Lange M.D. 08/26/2018 9:33 PM
--- NOTE | 2018-08-26 21:52 | CT Scan Report ---
CT head/brain wo con CLINICAL HISTORY: 78 years-old Female with fall, dementia. Acute head injury status post fall with d jesus. TECHNIQUE: Multiple axial CT images of the head were obtained without contrast. A dose lowering tech nique was utilized adhering to the principles of ALARA. CT DOSE: 537.48 mGy.cm COMPARISON: Head CT 07/14/2018. FINDINGS: No acute intracranial hemorrhage, midline shift, intracranial mass, hydrocephalus, territorial ischem ia or abnormal extra-axial collection. Age-related involutional changes. Extensive white matter hypod ensities suggest chronic microvascular ischemic disease. Cerebral vascular calcifications are noted. Senescent calcifications of the lentiform nuclei. The calvarium is intact. The paranasal sinuses, mastoid air cells, and middle ear cavities are clear . IMPRESSION: No acute intracranial abnormality or calvarial fracture. The above report was generated using voice recognition software. It may contain grammatical, syntax o r spelling errors. Electronically signed by: Brice Lange M.D. 08/26/2018 9:51 PM
[2018-08-26 22:05] LABS: Appearance Urine Clear (Clear); Bacteria Urine Automated Negative (Negative); Bilirubin Urine Negative (Negative); Blood Urine Negative (Negative); Cast Urine Automated 0 /lpf (0-5); Color Urine Yellow; Epithelial Cell Urine Auto 20-30 /lpf (0-5); Glucose Urine UA Negative (Negative); Ketones Urine Trace (Negative); Leukocyte Esterase Urine Negative (Negative); Nitrite Urine Negative (Negative); Protein Urine Trace (Negative); Specific Gravity Urine 1.018 (1.000-1.030); Urobilinogen Urine Negative (Negative)
[2018-08-26 22:14] LABS: RBC Urine Automated 0-4 /hpf (0-4)
[2018-08-26] MEDS ORDERED: POTASSIUM CHLORIDE 20 MEQ TABCR PO STA (22:24)
--- NOTE | 2018-08-26 22:50 | History & Physical Report ---
Date of Service August 26, 2018 Assessment & Plan (1) Sacral insufficiency fracture: hx mechanical fall Situational hypertension, possible chronic hypertension given LVH on EKG dementia, at baseline hx PVD status post surgery COPD as per records, ongoing tobacco abuse, pulmo status at baseline history of breast cancer, right status post surgery, chemoradiation bladder cancer status post surgery hx RLE DVT status post anticoagulation Hyperglycemia rule out DM [facility] consult RE sacral fracture Monitor BP, initiate maintenance antihypertensive medication if with persistent elevation Check hemoglobin A1c Nicotine patch Delirium precautions PT OT eval DVT prophylaxis. Heparin subcu DNR as per patient daughter/POA, Ms. Linda Perez. She requests updates from providers thru [id number]. History of Present Illness Chief Complaint: Fall, back pain Primary Care Provider: Dr. Sandhu History obtained from patient, family, and records. Patient is a fair historian, history somewhat limited by dementia. Medical history significant for dementia as per daughter, PVD status post surgery, COPD as per records, ongoing tobacco abuse, history of breast cancer, right status post surgery, chemoradiation, bladder cancer status post surgery, past hx RLE DVT status post anticoagulation. Patient had a witnessed fall at home today. Patient fell on her bottom as per daughter. No syncope, head trauma. Patient complaining of low back pain. Chronic feet numbness. Unable to get up from the ER without pain. Patient denies chest pain, S OB symptoms. MEDICAL HISTORY: As above. SURGERIES: Mastectomy, urologic procedures, cataract surgery, hernia repair. FAMILY HISTORY: Breast cancer, heart disease PERSONAL AND SOCIAL HISTORY: 1/2 pack daily. occ ETOH intake of alcoholic beverages. Prior work as a nurse aide. Allergies Allergy/AdvReac Type Severity Reaction Status Date / Time No Known Allergies Allergy Verified 08/26/18 21:06 Home Medications Home Medications Medication Instructions Recorded Confirmed Type No Known Home Medications 07/14/18 08/26/18 History Past Med/Surg History Medical History COPD (chronic obstructive pulmonary disease) (Chronic) IBS (irritable bowel syndrome) (Chronic) PAD (peripheral artery disease) (Chronic) Breast cancer (Resolved) Urethra cancer (Resolved) Family History Other Family history non-contributory Social History Preferred Language: Serbian Communication Ability: Effective Manager Room Required: No Beliefs That Will Affect Care: Lutheran Current Living Situation: Family Feels Safe at Home: Yes Safety Concerns: Feels Safe At This Time Smoking Status: Current every day smoker Tobacco Type: cigarettes Cigarettes Per Day: pt unable to answer Do You Dip or Chew Tobacco: No Second Hand Exposure: Yes Tobacco Cessation Education Requested by Patient: No Hx Alcohol Use: No Hx Substance Use: No Review of Systems Review of Systems: Could not be reliably obtained Physical Exam Physical Exam: GENERAL: Slightly uncomfortable, pleasant, underweight, no respiratory distress SKIN: Normal color, warm HEENT: [place] palpebral conjunctivae, no ptosis, dry buccal mucosa NECK : Supple, no tenderness CHEST : Decreased breath sounds, no tenderness HEART : RRR, no obvious murmurs ABDOMEN: Soft, nontender BACK : Left low back tenderness, negative straight leg raise test EXTREMITIES : No LE swelling/tenderness, no other conspicuous deformities noted NEUROLOGIC : Demented, no facial asymmetry, no other gross focality Results & Data Vital Signs (Past 12 Hours) Vital Signs Temp Pulse Pulse Resp BP Pulse Ox 08/26/18 22:17 74 18 95 08/26/18 20:34 92 08/26/18 20:06 148/76 H 08/26/18 19:57 37.4 C 81 18 93 Laboratory Results Laboratory Results WBC 8.67 K/uL (4.8-10.8) 08/26/18 20:33 RBC 4.04 M/uL (4.2-5.4) L 08/26/18 20:33 Hgb 12.3 g/dL (12.0-16.0) 08/26/18 20:33 Hct 37.3 % (37-47) 08/26/18 20:33 MCV 92.3 fL (80-100) 08/26/18 20:33 MCH 30.4 pg (25-34) 08/26/18 20:33 MCHC 33.0 g/dL (32-36) 08/26/18 20:33 RDW Std Deviation 49.2 fL (36.4-46.3) H 08/26/18 20:33 RDW Coeff of Gem 14.5 % (11.5-14.5) 08/26/18 20:33 Plt Count 173 K/uL (130-400) 08/26/18 20:33 MPV 9.8 fL (7.4-10.4) 08/26/18 20:33 Immature Gran % (Auto) 0.5 % 08/26/18 20:33 Neut % (Auto) 83.9 % 08/26/18 20:33 Lymph % (Auto) 8.9 % 08/26/18 20:33 [place] % (Auto) 6.1 % 08/26/18 20:33 Eos % (Auto) 0.6 % 08/26/18 20:33 Baso % (Auto) 0.0 % 08/26/18 20:33 Immature Gran # (Auto) 0.04 K/uL (0.00-0.02) H 08/26/18 20:33 Neut # (Auto) 7.28 K/uL (1.4-6.5) H 08/26/18 20:33 Lymph # (Auto) 0.77 K/uL (1.2-3.4) L 08/26/18 20:33 [place] # (Auto) 0.53 K/uL (0.11-0.59) 08/26/18 20:33 Eos # (Auto) 0.05 K/uL (0-0.5) 08/26/18 20:33 Baso # (Auto) 0.00 K/uL (0-0.2) 08/26/18 20:33 Sodium 142 mmol/L (136-145) 08/26/18 20:33 Potassium 3.4 mmol/L (3.5-5.1) L 08/26/18 20:33 Chloride 107 mmol/L (98-107) 08/26/18 20:33 Carbon Dioxide 28 mmol/L (21-32) 08/26/18 20:33 Anion Gap 7.0 (3-11) 08/26/18 20:33 BUN 14 mg/dl (7-18) 08/26/18 20:33 Creatinine 0.80 mg/dl (0.6-1.2) 08/26/18 20:33 Est Cr Clr Drug Dosing 39.1 ml/min 08/26/18 20:33 Est GFR ( Amer) 80.7 08/26/18 20:33 Est GFR (Non-Af Amer) 69.6 08/26/18 20:33 BUN/Creatinine Ratio 17.2 (10-20) 08/26/18 20:33 Glucose 101 mg/dl (70-99) H 08/26/18 20:33 Lactate 0.9 mmol/L (0.4-2.0) 08/26/18 20:33 Calcium 9.0 mg/dl (8.5-10.1) 08/26/18 20:33 Magnesium 2.1 mg/dl (1.8-2.4) 08/26/18 20:33 Total Bilirubin 0.6 mg/dl (0.2-1) 08/26/18 20:33 AST 22 U/L (15-37) 08/26/18 20:33 ALT 26 U/L (12-78) 08/26/18 20:33 Alkaline Phosphatase 91 U/L (45-117) 08/26/18 20:33 Troponin I < 0.015 ng/ml (0-0.045) 08/26/18 20:33 Total Protein 6.5 gm/dl (6.4-8.2) 08/26/18 20:33 Albumin 3.2 gm/dl (3.4-5.0) L 08/26/18 20:33 Globulin 3.3 gm/dl (2.5-4.0) 08/26/18 20:33 Albumin/Globulin Ratio 1.0 (0.9-2) 08/26/18 20:33 TSH 2.510 uIu/ml (0.300-4.500) 08/26/18 20:33 Urine Color Yellow 08/26/18 21:35 Urine Appearance Clear (Clear) 08/26/18 21:35 Urine pH 7.0 (4.5-7.5) 08/26/18 21:35 Ur Specific [place] 1.018 (1.000-1.030) 08/26/18 21:35 Urine Protein Trace (Negative) H 08/26/18 21:35 Urine Glucose (UA) Negative (Negative) 08/26/18 21:35 Urine Ketones Trace (Negative) H 08/26/18 21:35 Urine Blood Negative (Negative) 08/26/18 21:35 Urine Nitrite Negative (Negative) 07/04/19 21:35 Urine Bilirubin Negative (Negative) 08/26/18 21:35 Urine Urobilinogen Negative (Negative) 08/26/18 21:35 Ur Leukocyte Esterase Negative (Negative) 08/26/18 21:35 Urine WBC (Auto) 1-5 /hpf (0-5) 08/26/18 21:35 Urine RBC (Auto) 0-4 /hpf (0-4) 08/26/18 21:35 U Hyaline Cast (Auto) 0 /lpf (0-5) 08/26/18 21:35 U Epithel Cells (Auto) 20-30 /lpf (0-5) H 08/26/18 21:35 Urine Bacteria (Auto) Negative (Negative) 08/26/18 21:35 Urine Yeast Not Reportable 08/26/18 21:[address] head:No acute intracranial abnormality or calvarial fracture CT lumbar spine: 1. Acute bilateral sacral insufficiency fractures without significant displacement. 2. No acute fracture or subluxation of the lumbar spine identified. 3. Superior endplate compression deformities at T11 and T12 are technically age- indeterminate however are likely chronic without retropulsion. 4. Subtle age-indeterminate superior endplate compression of less than 20% about the T2 vertebral body. Chest x-ray showed emphysema EKG as per my interpretation : Rate 80, NSR, T wave flattening inferior and anteroseptal leads, LVH by Sokolow criteria
--- NOTE | 2018-08-26 22:59 | CT Scan Report ---
CT thoracic spine wo con, CT lumbar spine wo con HISTORY: 78 years-old Female fall, pain acute mid and low back pain status post fall COMPARISON: Chest radiograph 07/14/2018 TECHNIQUE: Multiple axial CT images of the thoracic and lumbar spine were obtained without the use of IV contrast. A dose lowering technique was used consistent with the principals of VINICIUS. FINDINGS: THORACIC: Demineralized appearance of the bones. Schmorl's nodes with superior endplate compression deformities noted at the T11 and T12 vertebral bodies which are age-indeterminate however are likely present on the 07/14/2018 exam. Age-indeterminate less than 20% superior endplate compression at T2 definite acut e fracture or subluxation identified. No significant retropulsion. Mostly mild multilevel disc space narrowing with moderate spondylitic spurring and facet arthrosis. Convex right curvature of the midth oracic spine. No acute rib fracture identified. There is no definite high-grade central canal stenosi s identified. Emphysema. Biapical pleural-parenchymal scarring. Extensive calcification of the thorac ic aorta. LUMBAR: Demineralized appearance the bones. Moderate disc space narrowing at L4-L5 and L5-S1. No acute fract ure or subluxation of the lumbar spine. Severe facet arthropathy at L4-L5 and L5-S1 with mild to mode rate multilevel spondylitic spurring. Evaluation of the central canal and neuroforamina is better ass essed by MRI. No definite high-grade central canal stenosis identified. There is a least mild bilater al foraminal narrowing at L5-S1. Punctate nonobstructing right nephrolithiasis. Nonspecific stranding /dependent free fluid about the pelvis. Acute appearing bilateral sacral insufficiency fractures with mild comminution. No significant displacement. IMPRESSION: 1. Acute bilateral sacral insufficiency fractures without significant displacement. 2. No acute fracture or subluxation of the lumbar spine identified. 3. Superior endplate compression deformities at T11 and T12 are technically age-indeterminate however are likely chronic without retropulsion. 4. Subtle age-indeterminate superior endplate compression of less than 20% about the T2 vertebral bod y. The above report was generated using voice recognition software. It may contain grammatical, syntax o r spelling errors. Electronically signed by: Brice Lange M.D. 08/26/2018 10:57 PM
--- NOTE | 2018-08-26 23:08 | Emergency Department Note ---
ED Visit Note The patient's lumbar and thoracic spine CTs have returned. There is no acute compression fracture noted but she does have sacral insufficiency fractures which were thought acute. These are typically managed nonoperatively. These fractures do explain her pain. The radiologist felt the compression fractures were old, not acute. . : Fall Qualifiers: Encounter type: initial encounter Qualified Code(s): W19.XXXA - Unspecified fall, initial encounter Dementia Qualifiers: Dementia type: unspecified type Dementia behavioral disturbance: with behavioral disturbance Qualified Code(s): F03.91 - Unspecified dementia with behavioral disturbance
[2018-08-27] MEDS ORDERED: ACETAMINOPHEN 325 MG TAB PO PRN (00:15)
[2018-08-27] MEDS ORDERED: LACTATED RINGER'S 1,000 ML IV ONE (00:15)
[2018-08-27] MEDS ORDERED: PROMETHAZINE HCL 12.5 MG in SODIUM CHLORIDE 0.9% 50 ML IV PRN (00:15)
[2018-08-27 01:50] LABS: Eosinophils % (auto) 1.4 %; Hematocrit (blood only) 38.4 % (37-47); Hemoglobin 12.6 g/dL (12.0-16.0); Immature Granulocytes # (auto) 0.03 K/uL (0.00-0.02); Immature Granulocytes % (auto) 0.4 %; Lymphocytes # (auto) 0.81 K/uL (1.2-3.4); Lymphocytes % (auto) 11.2 %; Mean Corpuscular Hgb Conc 32.8 g/dL (32-36); Mean Corpuscular Volume 92.8 fL (80-100); Mean Platelet Volume 9.6 fL (7.4-10.4); Monocytes # (auto) 0.24 K/uL (0.11-0.59); Monocytes % (auto) 3.3 %; Neutrophils # (auto) 6.08 K/uL (1.4-6.5); Neutrophils % (auto) 83.7 %; Platelet Count 172 K/uL (130-400); RDW Coefficient of Variation 14.6 % (11.5-14.5); RDW Standard Deviation 49.7 fL (36.4-46.3); Red Blood Count 4.14 M/uL (4.2-5.4); White Blood Count 7.26 K/uL (4.8-10.8)
[2018-08-27 02:07] LABS: INR 1.1 (0.9-1.1); Prothrombin Time 11.1 Seconds (9.0-12.0)
[2018-08-27] MEDS: LIDOCAINE 5% 1 PATCH TD SCH ×2 (02:08→20:58)
[2018-08-27 02:15] LABS: BUN Creatinine Ratio 13.1 (10-20); Calcium 9.1 mg/dl (8.5-10.1); Creatinine Clr Calc Pharmacy 34.5 ml/min; Est GFR (African American) 80.7; Est GFR (Non-African American) 69.6; Potassium 3.9 mmol/L (3.5-5.1)
[2018-08-27] MEDS: HEPARIN SOD 5,000 UNIT/0.5 ML VIAL SQ SCH ×3 (05:55→20:59)
[2018-08-27] MEDS: NICOTINE 14 MG/24 HR PATCH TD SCH (08:10)
[2018-08-27] MEDS: TRAMADOL HCL 50 MG TABLET PO PRN ×2 (08:17→14:22)
--- NOTE | 2018-08-27 15:02 | Hospitalist Progress Note ---
Date of Service August 27, 2018 Assessment & Plan (1) Sacral insufficiency fracture: h/o mechanical fall at home with resulting fracture and pain. Pain is managed, awaiting ortho recs. PT/OT to evaluate, may need SNF/rehab as transition to home. (2) Compression fracture: supportive care. Daughter met with PCP and eliminated all drugs. May consider Ca/D supplementation when following up with PCP post-discharge. (3) Fall: mechanical fall at home. Pending PT/OT evaluations. Fall precautions. (4) Dementia: Chronic, stable. Good sleep/wake cycles and other known steps should be taken to prevent delirium while admitted. (5) COPD (chronic obstructive pulmonary disease): stable, no home medications. No wheezing on exam. Recommended to quit smoking however, she declines. (6) PAD (peripheral artery disease): On baby ASA at home only. (7) Tobacco use disorder: Active smoking, doesn't want any assistance with quitting. (8) DVT prophylaxis: Heparin DNR/DNI Dispo-pending PT/OT evaluation Jenelle Healy DO [facility] Hospitalist Subjective Mechanical fall at home with bilateral sacral insufficiency fractures. Pain is controlled. Daughter in room who witnessed the fall and history gathered from her as mom has some dementia. Pt reports feeling well, tolerating PO, denies fevers, chills, UTI symptoms, cough, or other infectious symptoms. Reports when pain is present it is in her tailbone. She has some intermittent numbness in her feet but this is a chronic issue and unrelated to the fall. Review of Systems Review of Systems: All systems reviewed & are unremarkable except as noted in HPI & below Physical Exam Physical Exam: CONSTITUTIONAL: think, frail, elderly, vitals as above, generally well-appearing EYES: normal conjunctivae, no scleral icterus ENT: MMM RESPIRATORY: clear to auscultation bilaterally, no crackles, rales or wheezes, normal respiratory effort CARDIOVASCULAR: regular rate and rhythm, S1 and 2 heard without murmurs, g allops or rubs, no JVD, no peripheral edema GASTROINTESTINAL: normal bowel sounds, soft, nontender, nondistended MUSCULOSKELETAL: strength 5/5 throughout, head is normocephalic and atraumatic SKIN: warm and dry NEUROLOGIC: No facial palsy, no dysarthria. CN 2-12 grossly intact, no sensory deficit, normal cognition, no gross focal deficits. PSYCHIATRIC: alert cooperative and oriented to person, and place only. Results & Data Vital Signs (Past 12 Hours) Vital Signs Temp Pulse Resp BP Pulse Ox 08/27/18 07:00 37.5 C 78 18 148/66 H 97 Laboratory Results Short CBC 08/26/18 08/27/18 Range/Units 20:33 01:14 WBC 8.67 7.26 (4.8-10.8) K/uL Hgb 12.3 12.6 (12.0-16.0) g/dL Hct 37.3 38.4 (37-47) % Plt Count 173 172 (130-400) K/uL BMP 08/26/18 08/27/18 20:33 01:14 Sodium 142 143 Potassium 3.4 L 3.9 Chloride 107 109 H Carbon Dioxide 28 31 BUN 14 10 Creatinine 0.80 0.80 Glucose 101 H 115 H Calcium 9.0 9.1 Cardiac Enzymes 08/26/18 Range/Units 20:33 Troponin I < 0.015 (0-0.045) ng/ml Liver Function 08/26/18 Range/Units 20:33 Total Bilirubin 0.6 (0.2-1) mg/dl AST 22 (15-37) U/L ALT 26 (12-78) U/L Alkaline Phosphatase 91 (45-117) U/L Albumin 3.2 L (3.4-5.0) gm/dl Urine 08/26/18 Range/Units 21:35 Urine Color Yellow Urine Appearance Clear (Clear) Urine pH 7.0 (4.5-7.5) Ur Specific [place] 1.018 (1.000-1.030) Urine Protein Trace H (Negative) Urine Glucose (UA) Negative (Negative) Medications Administered Current Inpatient Medications Acetaminophen (Tylenol) 650 mg PO Q4H PRN PRN Reason: pain/fever Stop: 09/26/18 00:14 Heparin Sodium (Porcine) (Heparin Sodium (Porcine)) 5,000 units SQ Q8 [facility] Stop: 09/26/18 05:59 Last Admin: 08/27/18 14:13 Dose: 5,000 units Documented by: Lactated Ringer's (Lr) 1,000 mls @ 50 mls/hr IV .Q20H ONE Stop: 08/27/18 20:14 Last Infusion: 08/27/18 05:51 Dose: 50 mls/hr Documented by: Promethazine HCl 12.5 mg/ (Sodium Chloride) 50.5 mls @ 202 mls/hr IV Q6H PRN PRN Reason: Nausea And Vomiting Stop: 09/26/18 00:14 Lidocaine (Lidoderm 5%) 1 patch TD [facility] Stop: 09/26/18 01:09 Last Admin: 08/27/18 02:08 Dose: 1 patch Documented by: Miscellaneous (Remove Nicoderm Patch) 1 ea N/A HS [facility] Stop: 09/26/18 20:59 Miscellaneous (Remove Lidoderm Patch) 1 ea N/A QAM [facility] Stop: 09/26/18 10:59 Last Admin: 08/27/18 12:27 Dose: 1 ea Documented by: Nicotine (Nicoderm Cq) 14 mg TD QAM [facility] Stop: 09/26/18 08:59 Last Admin: 08/27/18 08:10 Dose: 14 mg Documented by: Tramadol HCl (Ultram) 25 mg PO Q4H PRN PRN Reason: Pain Stop: 09/26/18 00:14 Last Admin: 08/27/18 14:22 Dose: 25 mg Documented by: (1) Fall Encounter type: initial encounter Qualified Code(s): W19.XXXA - Unspecified fall, initial encounter (2) Dementia Dementia behavioral disturbance: with behavioral disturbance Dementia type: unspecified type Qualified Code(s): F03.91 - Unspecified dementia with behavioral disturbance
--- NOTE | 2018-08-27 19:22 | Consultation Report ---
DATE OF ADMISSION: 08/27/2018 REASON FOR CONSULTATION: Sacral insufficiency fracture with a mechanical fall. HISTORY OF PRESENT ILLNESS: The patient is 78. I saw her in consultation at approximately 4:30 on Thursday evening, 08/27/2018. She had a mechanical fall. I visited her on rounds. She was completely confused to person, place, time and was in 0 pain. PAST MEDICAL HISTORY: Positive for dementia, hypertension, chronic obstructive pulmonary disease and breast carcinoma. The history I was able to get was on the chart. She has no good records. She is a poor historian. She is limited by dementia. ALLERGIES: Negative. CURRENT MEDICATIONS: None. REVIEW OF SYSTEMS: Denies any blurred vision, double vision or tinnitus. She has again no pain. I can barely examine her. She is confused. She is a little bit combative and she is quite anxious and scared. OBJECTIVE: VITAL SIGNS: Stable. GENERAL: Alert and oriented. BACK: I can barely examine her back. She did not want to be touched or palpated. NEUROLOGIC: Intact. Moves all extremities. I looked at her CT scan. She has a very mild sacral insufficiency fracture, age indeterminate. IMPRESSION: A delightful patient with multiple medical problems, significant dementia, chronic obstructive pulmonary disease, breast carcinoma, confusion and anxiety. She also has a sacral insufficiency fracture, age indeterminate. PLAN: I did order a back brace for support. It maybe a moot point. She may not want to wear it and we will not force her to do so. We will see her back in the office only p.r.n. She does not need a followup appointment. This will be self-limiting. She is stable for discharge home from an orthopedic spinal standpoint.
[2018-08-28] MEDS: HEPARIN SOD 5,000 UNIT/0.5 ML VIAL SQ SCH ×3 (06:20→22:19)
[2018-08-28] MEDS: NICOTINE 14 MG/24 HR PATCH TD SCH (08:33)
[2018-08-28] MEDS: ACETAMINOPHEN 500 MG TAB PO SCH ×2 (11:01→22:19)
--- NOTE | 2018-08-28 18:31 | Hospitalist Progress Note ---
Date of Service August 28, 2018 Assessment & Plan (1) Sacral insufficiency fracture: s/p fall at home. Ortho spine evaluated and recommends brace and conservative management. PT/OT evaluations with recommendations for rehab progrram as transition to home. Case management discussed [facility] rehabilitation technician, however, pain needs to be better controlled. She was started on scheduled Tylenol punctuated by Tramadol. Cont to monitor. (2) Compression fracture: cont supportive care with pain control and physical therapy. (3) Fall: PT/OT to work with her (4) Dementia: At risk for delirium, cont to observe good sleep/wake cycles and reorient. Pain control. (5) COPD (chronic obstructive pulmonary disease): stable, no wheezing. PRN inhalers. Advised to quit smoking. (6) PAD (peripheral artery disease): Continues on baby aspirin. (7) Tobacco use disorder: Nicotine patch, uninterested in quitting at this time. (8) DVT prophylaxis: Heparin DNR Dispo-to rehab once pain better managed. Jenelle Healy DO [facility] Hospitalist Subjective ROS is unobtainable as she has dementia. Daughter is at bedside. Per nursing and daughter, although the patient is in no pain at rest, she has severe pain wtih any movement including trying to sit at bedside. Review of Systems Review of Systems: Unobtainable due to mental health condition Physical Exam Physical Exam: CONSTITUTIONAL: think, frail, elderly, vitals as above, generally well-appearing EYES: normal conjunctivae, no scleral icterus ENT: MMM RESPIRATORY: clear to auscultation bilaterally, no crackles, rales or wheezes, normal respiratory effort CARDIOVASCULAR: regular rate and rhythm, S1 and 2 heard without murmurs, gallops or rubs, no JVD, no peripheral edema GASTROINTESTINAL: normal bowel sounds, soft, nontender, nondistended MUSCULOSKELETAL: strength 5/5 throughout, head is normocephalic and atraumatic SKIN: warm and dry NEUROLOGIC: No facial palsy, no dysarthria. CN 2-12 grossly intact, no sensory deficit, moves all extremities equally. PSYCHIATRIC: alert cooperative, poor insight into disease process and what is going on. Results & Data Vital Signs (Past 12 Hours) Vital Signs Temp Pulse Resp BP Pulse Ox 08/28/18 15:01 36.8 C 84 18 127/73 94 08/28/18 07:42 36.9 C 80 18 118/59 L 97 Medications Administered Current Inpatient Medications Acetaminophen (Tylenol) 1,000 mg PO Q8 [facility] Stop: 09/27/18 10:59 Last Admin: 08/28/18 11:01 Dose: 1,000 mg Documented by: Heparin Sodium (Porcine) (Heparin Sodium (Porcine)) 5,000 units SQ Q8 [facility] Stop: 09/26/18 05:59 Last Admin: 08/28/18 13:53 Dose: 5,000 units Documented by: Promethazine HCl 12.5 mg/ (Sodium Chloride) 50.5 mls @ 202 mls/hr IV Q6H PRN PRN Reason: Nausea And Vomiting Stop: 09/26/18 00:14 Lidocaine (Lidoderm 5%) 1 patch TD HS [facility] Stop: 09/26/18 01:09 Last Admin: 08/27/18 20:58 Dose: 1 patch Documented by: Miscellaneous (Remove Nicoderm Patch) 1 ea N/A HS [facility] Stop: 09/26/18 20:59 Last Admin: 08/27/18 20:58 Dose: 1 ea Documented by: Miscellaneous (Remove Lidoderm Patch) 1 ea N/A QAM [facility] Stop: 09/26/18 10:59 Last Admin: 08/28/18 08:33 Dose: 1 ea Documented by: Nicotine (Nicoderm Cq) 14 mg TD QAM [facility] Stop: 09/26/18 08:59 Last Admin: 08/28/18 08:33 Dose: 14 mg Documented by: Tramadol HCl (Ultram) 25 mg PO Q4H PRN PRN Reason: Pain Stop: 09/26/18 00:14 Last Admin: 08/27/18 14:22 Dose: 25 mg Documented by: (1) Fall Encounter type: initial encounter Qualified Code(s): W19.XXXA - Unspecified fall, initial encounter (2) Dementia Dementia behavioral disturbance: with behavioral disturbance Dementia type: unspecified type Qualified Code(s): F03.91 - Unspecified dementia with behavioral disturbance
[2018-08-28] MEDS: LIDOCAINE 5% 1 PATCH TD SCH (20:14)
[2018-08-29] MEDS: ACETAMINOPHEN 500 MG TAB PO SCH ×3 (05:16→21:45)
[2018-08-29] MEDS: HEPARIN SOD 5,000 UNIT/0.5 ML VIAL SQ SCH ×3 (05:16→21:12)
[2018-08-29] MEDS: TRAMADOL HCL 50 MG TABLET PO PRN (09:27)
[2018-08-29] MEDS: NICOTINE 14 MG/24 HR PATCH TD SCH (09:27)
--- NOTE | 2018-08-29 12:35 | Hospitalist Progress Note ---
Date of Service August 29, 2018 Assessment & Plan (1) Sacral insufficiency fracture: s/p fall at home. Ortho spine evaluated and recommends brace and conservative management. PT/OT evaluations with recommendations for rehab program as transition to home. Case management discussed with rehab director, however, pain needs to be better controlled. She was started on scheduled Tylenol punctuated by Tramadol. This is not improving her. No drowsiness as a result and still very painful with only minimal movement. Adding scheduled Tramadol. (2) Compression fracture: cont supportive care with pain control and physical therapy. Brace provided (3) Fall: PT/OT to work with her, fall precautions. (4) Dementia: At risk for delirium, cont to observe good sleep/wake cycles and reorient. Pain control. (5) COPD (chronic obstructive pulmonary disease): stable, no wheezing. PRN inhalers. Advised to quit smoking. (6) PAD (peripheral artery disease): Continues on baby aspirin. (7) Tobacco use disorder: Nicotine patch, uninterested in quitting at this time. (8) DVT prophylaxis: Heparin DNR Dispo-to rehab once pain better managed. Jenelle Healy DO [facility] Hospitalist Subjective Pt is oriented to baseline mental status (person and place) and states that she is having no pain. When asked about pain with movement, she says she is "fine." However, when I moved the bed up just a few inches she cried out and asked to have it brought back down. She is very guarded about being maneuvered. She feels the Tylenol is helping somewhat, but not sure. She is not drowsy or fatigued as a result of adding it. Review of Systems Review of Systems: All systems reviewed & are unremarkable except as noted in HPI & below Physical Exam Physical Exam: CONSTITUTIONAL: think, frail, elderly, vitals as above, generally well-appearing, acute distress with minimal movement. EYES: normal conjunctivae, no scleral icterus ENT: MMM RESPIRATORY: clear to auscultation bilaterally, no crackles, rales or wheezes, normal respiratory effort CARDIOVASCULAR: regular rate and rhythm, S1 and 2 heard without murmurs, gallops or rubs, no JVD, no peripheral edema GASTROINTESTINAL: normal bowel sounds, soft, nontender, nondistended MUSCULOSKELETAL: strength 5/5 throughout, head is normocephalic and atraumatic, very painful with minimal movement. SKIN: warm and dry NEUROLOGIC: No facial palsy, no dysarthria. CN 2-12 grossly intact, no sensory deficit, moves all extremities equally. PSYCHIATRIC: alert cooperative, poor insight into disease process and what is going on. Results & Data Vital Signs (Past 12 Hours) Vital Signs Temp Pulse Resp BP Pulse Ox 08/29/18 07:52 36.7 C 71 18 100/62 99 Medications Administered Current Inpatient Medications Acetaminophen (Tylenol) 1,000 mg PO Q8 [facility] Stop: 09/27/18 10:59 Last Admin: 08/29/18 05:16 Dose: 1,000 mg Documented by: Heparin Sodium (Porcine) (Heparin Sodium (Porcine)) 5,000 units SQ Q8 [facility] Stop: 09/26/18 05:59 Last Admin: 08/29/18 05:16 Dose: 5,000 units Documented by: Promethazine HCl 12.5 mg/ (Sodium Chloride) 50.5 mls @ 202 mls/hr IV Q6H PRN PRN Reason: Nausea And Vomiting Stop: 09/26/18 00:14 Lidocaine (Lidoderm 5%) 1 patch TD HS [facility] Stop: 09/26/18 01:09 Last Admin: 08/28/18 20:14 Dose: 1 patch Documented by: Miscellaneous (Remove Nicoderm Patch) 1 ea N/A HS [facility] Stop: 09/26/18 20:59 Last Admin: 08/28/18 20:15 Dose: 1 ea Documented by: Miscellaneous (Remove Lidoderm Patch) 1 ea N/A QAM [facility] Stop: 09/26/18 10:59 Last Admin: 08/29/18 09:27 Dose: 1 ea Documented by: Nicotine (Nicoderm Cq) 14 mg TD QAM [facility] Stop: 09/26/18 08:59 Last Admin: 08/29/18 09:27 Dose: 14 mg Documented by: Tramadol HCl (Ultram) 50 mg PO Q8H [facility] Stop: 09/28/18 12:44 (1) Fall Encounter type: initial encounter Qualified Code(s): W19.XXXA - Unspecified fall, initial encounter (2) Dementia Dementia behavioral disturbance: with behavioral disturbance Dementia type: unspecified type Qualified Code(s): F03.91 - Unspecified dementia with behavioral disturbance
[2018-08-29] MEDS: TRAMADOL HCL 50 MG TABLET PO SCH ×2 (14:22→21:45)
[2018-08-29] MEDS: LIDOCAINE 5% 1 PATCH TD SCH (21:18)
[2018-08-30] MEDS: TRAMADOL HCL 50 MG TABLET PO SCH ×3 (06:03→21:43)
[2018-08-30] MEDS: HEPARIN SOD 5,000 UNIT/0.5 ML VIAL SQ SCH ×3 (06:03→21:42)
[2018-08-30] MEDS: ACETAMINOPHEN 500 MG TAB PO SCH ×3 (06:03→21:44)
[2018-08-30] MEDS: NICOTINE 14 MG/24 HR PATCH TD SCH (09:07)
[2018-08-30] MEDS: NAPROXEN 375 MG TAB PO SCH (16:28)
--- NOTE | 2018-08-30 17:08 | Hospitalist Progress Note ---
Date of Service August 30, 2018 Assessment & Plan (1) Sacral insufficiency fracture: Scheduled Tylenol; add scheduled tramadol (2) Compression fracture: cont supportive care with pain control and physical therapy. Brace provided (3) Fall: PT/OT to work with her, fall precautions. (4) Dementia: At risk for delirium, cont to observe good sleep/wake cycles and reorient. Pain control. (5) COPD (chronic obstructive pulmonary disease): stable, no wheezing. PRN inhalers. Advised to quit smoking. (6) PAD (peripheral artery disease): Continues on baby aspirin. (7) Tobacco use disorder: Nicotine patch, uninterested in quitting at this time. (8) DVT prophylaxis: Heparin DNR Dispo-to rehab once pain better managed. Jenelle Healy DO [place] Hospitalist Subjective Doing well, ROS is limited in the setting of dementia. No pain at rest but still rather painful with moving around. ROS is otherwise negative. Review of Systems Review of Systems: Unobtainable due to mental health condition Physical Exam Physical Exam: CONSTITUTIONAL: think, frail, elderly, vitals as above, generally well-appearing, acute distress with minimal movement. EYES: normal conjunctivae, no scleral icterus ENT: MMM RESPIRATORY: clear to auscultation bilaterally, no crackles, rales or wheezes, normal respiratory effort CARDIOVASCULAR: regular rate and rhythm, S1 and 2 heard without murmurs, gallops or rubs, no JVD, no peripheral edema GASTROINTESTINAL: normal bowel sounds, soft, nontender, nondistended MUSCULOSKELETAL: strength 5/5 throughout, head is normocephalic and atraumatic, very painful with minimal movement. SKIN: warm and dry NEUROLOGIC: No facial palsy, no dysarthria. CN 2-12 grossly intact, no sensory deficit, moves all extremities equally. PSYCHIATRIC: alert cooperative, poor insight into disease process Results & Data Vital Signs (Past 12 Hours) Vital Signs Temp Pulse Pulse Resp BP Pulse Ox 08/30/18 15:40 36.2 C L 76 21 114/66 96 08/30/18 07:34 36.7 C 72 18 148/69 H 95 Medications Administered Current Inpatient Medications Acetaminophen (Tylenol) 1,000 mg PO Q8 [facility] Stop: 09/27/18 10:59 Last Admin: 08/30/18 14:42 Dose: 1,000 mg Documented by: Heparin Sodium (Porcine) (Heparin Sodium (Porcine)) 5,000 units SQ Q8 [facility] Stop: 09/26/18 05:59 Last Admin: 08/30/18 14:42 Dose: 5,000 units Documented by: Promethazine HCl 12.5 mg/ (Sodium Chloride) 50.5 mls @ 202 mls/hr IV Q6H PRN PRN Reason: Nausea And Vomiting Stop: 09/26/18 00:14 Lidocaine (Lidoderm 5%) 1 patch TD HS [facility] Stop: 09/26/18 01:09 Last Admin: 08/29/18 21:18 Dose: 1 patch Documented by: Miscellaneous (Remove Nicoderm Patch) 1 ea N/A HS [facility] Stop: 09/26/18 20:59 Last Admin: 08/29/18 21:18 Dose: 1 ea Documented by: Miscellaneous (Remove Lidoderm Patch) 1 ea N/A QAM [facility] Stop: 09/26/18 10:59 Last Admin: 08/30/18 09:07 Dose: 1 ea Documented by: Naproxen (Naprosyn) 375 mg PO Q12@0600,1800 [facility] Stop: 09/29/18 15:59 Last Admin: 08/30/18 16:28 Dose: 375 mg Documented by: Nicotine (Nicoderm Cq) 14 mg TD QAM [facility] Stop: 09/26/18 08:59 Last Admin: 08/30/18 09:07 Dose: 14 mg Documented by: Tramadol HCl (Ultram) 50 mg PO Q8 [facility] Stop: 09/28/18 12:59 Last Admin: 08/30/18 14:45 Dose: 50 mg Documented by: (1) Dementia Dementia behavioral disturbance: with behavioral disturbance Dementia type: unspecified type Qualified Code(s): F03.91 - Unspecified dementia with behavioral disturbance (2) Fall Encounter type: initial encounter Qualified Code(s): W19.XXXA - Unspecified fall, initial encounter
[2018-08-30] MEDS: LIDOCAINE 5% 1 PATCH TD SCH (21:41)
[2018-08-31] MEDS: TRAMADOL HCL 50 MG TABLET PO SCH ×3 (05:49→21:53)
[2018-08-31] MEDS: NAPROXEN 375 MG TAB PO SCH ×2 (05:49→18:44)
[2018-08-31] MEDS: ACETAMINOPHEN 500 MG TAB PO SCH ×3 (05:50→21:53)
[2018-08-31] MEDS: HEPARIN SOD 5,000 UNIT/0.5 ML VIAL SQ SCH ×3 (05:51→20:28)
[2018-08-31 06:17] LABS: Hematocrit (blood only) 37.3 % (37-47); Hemoglobin 11.9 g/dL (12.0-16.0); Mean Corpuscular Hgb Conc 31.9 g/dL (32-36); Mean Corpuscular Volume 94.4 fL (80-100); Mean Platelet Volume 9.7 fL (7.4-10.4); Platelet Count 213 K/uL (130-400); RDW Coefficient of Variation 14.9 % (11.5-14.5); RDW Standard Deviation 52.2 fL (36.4-46.3); Red Blood Count 3.95 M/uL (4.2-5.4); White Blood Count 3.48 K/uL (4.8-10.8)
[2018-08-31 06:53] LABS: BUN Creatinine Ratio 28.6 (10-20); Creatinine Clr Calc Pharmacy 34.5 ml/min; Est GFR (African American) 80.7; Est GFR (Non-African American) 69.6
[2018-08-31] MEDS: NICOTINE 14 MG/24 HR PATCH TD SCH (07:30)
[2018-08-31] MEDS: OXYCODONE HCL IR 5 MG TAB (IMMEDIATE RELEASE) PO PRN (11:41)
[2018-08-31] MEDS: LIDOCAINE 5% 1 PATCH TD SCH (20:29)
[2018-09-01] MEDS: ACETAMINOPHEN 500 MG TAB PO SCH ×3 (05:57→21:55)
[2018-09-01] MEDS: TRAMADOL HCL 50 MG TABLET PO SCH ×3 (05:57→21:55)
[2018-09-01] MEDS: HEPARIN SOD 5,000 UNIT/0.5 ML VIAL SQ SCH ×3 (05:58→21:58)
[2018-09-01] MEDS: NAPROXEN 375 MG TAB PO SCH ×2 (05:58→17:48)
[2018-09-01] MEDS: NICOTINE 14 MG/24 HR PATCH TD SCH (07:35)
[2018-09-01] MEDS: OXYCODONE HCL IR 5 MG TAB (IMMEDIATE RELEASE) PO PRN (07:35)
--- NOTE | 2018-09-01 17:23 | Hospitalist Progress Note ---
Date of Service September 01, 2018 Assessment & Plan (1) Sacral insufficiency fracture: Scheduled Tylenol; add scheduled tramadol Continue PT and OT Likely discharge when pain is reasonably controlled (2) Compression fracture: cont supportive care with pain control and physical therapy. Brace provided Continue PT and OT (3) Fall: PT/OT to work with her, fall precautions. (4) Dementia: At risk for delirium, cont to observe good sleep/wake cycles and reorient. Pain control. No acute delirium Try to avoid narcotics and/or benzodiazepines (5) COPD (chronic obstructive pulmonary disease): stable, no wheezing. PRN inhalers. Advised to quit smoking. (6) PAD (peripheral artery disease): Continues on baby aspirin. (7) Tobacco use disorder: Nicotine patch, uninterested in quitting at this time. (8) DVT prophylaxis: Heparin DNR Dispo-to rehab once pain better managed. Subjective 09/01 Patient was seen and examined in medical floor in presence of the daughter She was admitted with a mechanical fall and sacral insufficiency fracture Has been complaining of pain with movement Denies any other symptoms Review of Systems Review of Systems: All systems reviewed and are unremarkable except as noted below Constitutional: + weakness Respiratory: no cough and no dyspnea Cardiovascular: no chest pain Gastrointestinal: no abdominal pain and no bloating Musculoskeletal: Pain in the pelvic area with movement Neurologic: Alert awake and oriented x3, Physical Exam Physical Exam: No apparent distress at rest Constitutional: + ill appearing; no acute distress Eyes: PERRL, conjunctivae normal, anicteric sclerae ENMT: external ear and nose normal, oropharynx normal Neck: trachea midline, no thyromegaly Respiratory: normal respiratory effort Auscultation: lungs clear to auscultation bilaterally Cardiovascular: Rate/Rhythm: regular rate and regular rhythm Heart Sounds: no murmur Gastrointestinal (Abdomen): Inspection/Auscultation: abdomen normal to inspection and normal bowel sounds Percussion/Palpation: abdomen soft Musculoskeletal: Complaining of pelvic pain with movement of the lower extremity Neurologic: >Alert and generally with Results & Data Vital Signs (Past 12 Hours) Vital Signs Temp Pulse Pulse Resp BP Pulse Ox 09/01/18 15:31 36.9 C 75 19 147/68 H 97 09/01/18 07:11 36.8 C 69 16 142/67 H 96 Medications Administered Current Inpatient Medications Acetaminophen (Tylenol) 1,000 mg PO Q8 [facility] Stop: 09/27/18 10:59 Last Admin: 09/01/18 14:19 Dose: 1,000 mg Documented by: Heparin Sodium (Porcine) (Heparin Sodium (Porcine)) 5,000 units SQ Q8 [facility] Stop: 09/26/18 05:59 Last Admin: 09/01/18 14:19 Dose: 5,000 units Documented by: Promethazine HCl 12.5 mg/ (Sodium Chloride) 50.5 mls @ 202 mls/hr IV Q6H PRN PRN Reason: Nausea And Vomiting Stop: 09/26/18 00:14 Lidocaine (Lidoderm 5%) 1 patch TD [facility] Stop: 09/26/18 01:09 Last Admin: 08/31/18 20:29 Dose: 1 patch Documented by: Miscellaneous (Remove Nicoderm Patch) 1 ea N/A HS [facility] Stop: 09/26/18 20:59 Last Admin: 08/31/18 20:29 Dose: 1 ea Documented by: Miscellaneous (Remove Lidoderm Patch) [facility] Stop: 09/26/18 10:59 Last Admin: 09/01/18 07:39 Dose: 1 ea Documented by: Naproxen (Naprosyn) 375 mg PO Q12@0600,1800 [facility] Stop: 09/29/18 15:59 Last Admin: 09/01/18 05:58 Dose: 375 mg Documented by: Nicotine (Nicoderm Cq) 14 mg TD QAM [facility] Stop: 09/26/18 08:59 Last Admin: 09/01/18 07:35 Dose: 14 mg Documented by: Oxycodone HCl (Roxicodone Immediate Rel) 5 mg PO Q6H PRN PRN Reason: Pain Stop: 09/14/18 11:29 Last Admin: 09/01/18 07:35 Dose: 5 mg Documented by: Tramadol HCl (Ultram) 50 mg PO Q8 [facility] Stop: 09/28/18 12:59 Last Admin: 09/01/18 14:19 Dose: 50 mg Documented by: (1) Fall Encounter type: initial encounter Qualified Code(s): W19.XXXA - Unspecified fall, initial encounter (2) Dementia Dementia behavioral disturbance: with behavioral disturbance Dementia type: unspecified type Qualified Code(s): F03.91 - Unspecified dementia with behavioral disturbance
[2018-09-01] MEDS: LIDOCAINE 5% 1 PATCH TD SCH (21:55)
[2018-09-01 23:21] VITALS: PULSE 74
[2018-09-02] MEDS: NAPROXEN 375 MG TAB PO SCH (06:13)
[2018-09-02] MEDS: TRAMADOL HCL 50 MG TABLET PO SCH ×2 (06:13→13:35)
[2018-09-02] MEDS: ACETAMINOPHEN 500 MG TAB PO SCH ×2 (06:13→13:36)
[2018-09-02] MEDS: HEPARIN SOD 5,000 UNIT/0.5 ML VIAL SQ SCH ×2 (06:14→13:36)
[2018-09-02 07:26] VITALS: BP 120/64; TEMP 98.4; O2SAT 97
[2018-09-02] MEDS: NICOTINE 14 MG/24 HR PATCH TD SCH (09:26)
[2018-09-02] MEDS: OXYCODONE HCL IR 5 MG TAB (IMMEDIATE RELEASE) PO PRN (10:20)
--- NOTE | 2018-09-02 14:10 | Hospitalist Progress Note ---
Date of Service September 02, 2018 Assessment & Plan (1) Sacral insufficiency fracture: Scheduled Tylenol; add scheduled tramadol Continue PT and OT Likely discharge when pain is reasonably controlled Denies any pain at rest Has been getting physical therapy without significant symptoms (2) Compression fracture: cont supportive care with pain control and physical therapy. Brace provided Continue PT and OT Will be transferred to [facility] this afternoon (3) Fall: PT/OT to work with her, fall precautions. (4) Dementia: At risk for delirium, cont to observe good sleep/wake cycles and reorient. Pain control. No acute delirium Try to avoid narcotics and/or benzodiazepines (5) COPD (chronic obstructive pulmonary disease): stable, no wheezing. PRN inhalers. Advised to quit smoking. (6) PAD (peripheral artery disease): Continues on baby aspirin. (7) Tobacco use disorder: Nicotine patch, uninterested in quitting at this time. (8) DVT prophylaxis: Heparin DNR Dispo-to rehab once pain better managed. Discussed with the daughter She will be discharged today Subjective 09/01 Patient was seen and examined in medical floor in presence of the daughter She was admitted with a mechanical fall and sacral insufficiency fracture Has been complaining of pain with movement Denies any other symptoms 09/02 Patient was seen and examined in medical floor in presence of the daughter She has been out of bed on a chair without any symptoms She complains to have some pain with movement in the pelvic area Denies any other significant symptoms Review of Systems Review of Systems: All systems reviewed and are unremarkable except as noted below Constitutional: + weakness Musculoskeletal: Pain in the pelvic area with movement Neurologic: Alert awake and oriented x3, Physical Exam Physical Exam: No apparent distress at rest. Sitting on a chair outside bed without any symptoms Constitutional: no acute distress Eyes: PERRL, conjunctivae normal, anicteric sclerae ENMT: external ear and nose normal, oropharynx normal Neck: trachea midline, no thyromegaly Respiratory: normal respiratory effort Auscultation: lungs clear to auscultation bilaterally Cardiovascular: Rate/Rhythm: regular rate and regular rhythm Heart Sounds: no murmur Gastrointestinal (Abdomen): Inspection/Auscultation: abdomen normal to inspection and normal bowel sounds Percussion/Palpation: abdomen soft Neurologic: Alert, awake without any significant confusion, no focal motor deficit Results & Data Vital Signs (Past 12 Hours) Vital Signs Temp Pulse Resp BP Pulse Ox 09/02/18 07:25 36.9 C 74 16 120/64 97 Medications Administered Current Inpatient Medications Acetaminophen (Tylenol) 1,000 mg PO Q8 [facility] Stop: 09/27/18 10:59 Last Admin: 09/02/18 13:36 Dose: 1,000 mg Documented by: Heparin Sodium (Porcine) (Heparin Sodium (Porcine)) 5,000 units SQ Q8 [facility] Stop: 09/26/18 05:59 Last Admin: 09/02/18 13:36 Dose: 5,000 units Documented by: Promethazine HCl 12.5 mg/ (Sodium Chloride) 50.5 mls @ 202 mls/hr IV Q6H PRN PRN Reason: Nausea And Vomiting Stop: 09/26/18 00:14 Lidocaine (Lidoderm 5%) 1 patch TD HS [facility] Stop: 09/26/18 01:09 Last Admin: 09/01/18 21:55 Dose: 1 patch Documented by: Miscellaneous (Remove Nicoderm Patch) 1 ea N/A HS [facility] Stop: 09/26/18 20:59 Last Admin: 09/01/18 21:57 Dose: 1 ea Documented by: Miscellaneous (Remove Lidoderm Patch) 1 ea N/A QAM [facility] Stop: 09/26/18 10:59 Last Admin: 09/02/18 09:27 Dose: 1 ea Documented by: Naproxen (Naprosyn) 375 mg PO Q12@0600,1800 [facility] Stop: 09/29/18 15:59 Last Admin: 09/02/18 06:13 Dose: 375 mg Documented by: Nicotine (Nicoderm Cq) 14 mg TD QAM [facility] Stop: 09/26/18 08:59 Last Admin: 09/02/18 09:26 Dose: 14 mg Documented by: Oxycodone HCl (Roxicodone Immediate Rel) 5 mg PO Q6H PRN PRN Reason: Pain Stop: 09/14/18 11:29 Last Admin: 09/02/18 10:20 Dose: 5 mg Documented by: Tramadol HCl (Ultram) 50 mg PO Q8 [facility] Stop: 09/28/18 12:59 Last Admin: 09/02/18 13:35 Dose: 50 mg Documented by: (1) Fall Encounter type: initial encounter Qualified Code(s): W19.XXXA - Unspecified fall, initial encounter (2) Dementia Dementia behavioral disturbance: with behavioral disturbance Dementia type: unspecified type Qualified Code(s): F03.91 - Unspecified dementia with behavioral disturbance
--- NOTE | 2018-09-03 10:32 | Discharge Summary ---
Date of Service September 03, 2018 Admission HPI Per Admitting Provider History obtained from patient, family, and records. Patient is a fair historian, history somewhat limited by dementia. Medical history significant for dementia as per daughter, PVD status post surgery, COPD as per records, ongoing tobacco abuse, history of breast cancer, right status post surgery, chemoradiation, bladder cancer status post surgery, past hx RLE DVT status post anticoagulation. Patient had a witnessed fall at home today. Patient fell on her bottom as per daughter. No syncope, head trauma. Patient complaining of low back pain. Chronic feet numbness. Unable to get up from the ER without pain. Patient denies chest pain, S OB symptoms. MEDICAL HISTORY: As above. SURGERIES: Mastectomy, urologic procedures, cataract surgery, hernia repair. FAMILY HISTORY: Breast cancer, heart disease PERSONAL AND SOCIAL HISTORY: 1/2 pack daily. occ ETOH intake of alcoholic beverages. Prior work as a nurse aide. Admission Exam Per Admitting Provider Physical Exam: GENERAL: Slightly uncomfortable, pleasant, underweight, no respiratory distress SKIN: Normal color, warm HEENT: [place] palpebral conjunctivae, no ptosis, dry buccal mucosa NECK : Supple, no tenderness CHEST : Decreased breath sounds, no tenderness HEART : RRR, no obvious murmurs ABDOMEN: Soft, nontender BACK : Left low back tenderness, negative straight leg raise test EXTREMITIES : No LE swelling/tenderness, no other conspicuous deformities noted NEUROLOGIC : Demented, no facial asymmetry, no other gross focality Principal Diagnosis Sacral insufficiency fracture status post mechanical fall, T11 and T12 compression fracture, dementia, stable COPD Discharge Exam Constitutional no acute distress Eyes PERRL, conjunctivae normal, anicteric sclerae ENMT external ear and nose normal, oropharynx normal Neck trachea midline, no thyromegaly Respiratory normal respiratory effort Auscultation: lungs clear to auscultation bilaterally Cardiovascular Rate/Rhythm: regular rate and regular rhythm Heart Sounds: no murmur Gastrointestinal (Abdomen) Inspection/Auscultation: abdomen normal to inspection and normal bowel sounds Percussion/Palpation: abdomen soft Discharge Data Allergies Allergy/AdvReac Type Severity Reaction Status Date / Time No Known Allergies Allergy Verified 08/26/18 21:06 Consultations 08/26/18 22:17 ED Decision to Admit Stat 08/27/18 00:15 Consult Case Management - Discharge Planning Routine 08/27/18 01:10 Consult Orthopedic Surgery Routine Ordered Studies 08/26/18 20:02 CT head/brain wo con Stat 08/26/18 22:16 CT lumbar spine wo con Stat CT thoracic spine wo con Stat Hospital Course (1) Sacral insufficiency fracture: Scheduled Tylenol; add scheduled tramadol Continue PT and OT Likely discharge when pain is reasonably controlled Denies any pain at rest Has been getting physical therapy without significant symptoms (2) Compression fracture: cont supportive care with pain control and physical therapy. Brace provided Continue PT and OT Will be transferred to [facility] this afternoon (3) Fall: PT/OT to work with her, fall precautions. (4) Dementia: At risk for delirium, cont to observe good sleep/wake cycles and reorient. Pain control. No acute delirium Try to avoid narcotics and/or benzodiazepines (5) COPD (chronic obstructive pulmonary disease): stable, no wheezing. PRN inhalers. Advised to quit smoking. (6) PAD (peripheral artery disease): Continues on baby aspirin. (7) Tobacco use disorder: Nicotine patch, uninterested in quitting at this time. (8) DVT prophylaxis: Heparin DNR Dispo-to rehab once pain better managed. Discussed with the daughter She will be discharged today Total Time Total Time Spent Total Time Spent (In Minutes): 40 minutes Total Time Includes: Examination of the Patient, Discharge Planning, Medication Reconciliation and Communication With Other Providers Discharge Plan Discharge Items Patient Disposition: Transfer [facility] Reason For Visit: BACK PAIN Discharge Diagnosis: Sacral insufficiency fracture status post mechanical fall, T11 and T12 compression fracture, dementia, stable COPD Discharge Goals: Decrease discomfort and Improve function Activity: Resume your previous activity Non-emergency contact: Primary Care Provider Call non-emergency contact if: you have any medication questions Follow-up/Referrals: PCP,CEDRIC [Primary Care Provider] - 09/09/18 12:45 pm (Your appointment is with Dr. Degroot ) Diet: Heart Healthy Addtl Provider Instructions: Please take precaution to avoid fall. Continue physical therapy Prescriptions: New naproxen 375 mg Tablet 375 mg PO Q12@0600,1800 15 Days Qty: 30 RF: 0 tramadol 50 mg Tablet 50 mg PO Q8 3 Days Qty: 9 RF: 0 lidocaine 5 % Adhesive Patch,Medicated 1 patch transdermal HS 10 Days Qty: 10 RF: 0 nicotine 7 mg/24 hr Patch 24 Hour 14 mg transdermal QAM 30 Days Qty: 30 RF: 0 oxycodone 5 mg Tablet 5 mg PO Q6H PRN (Reason: pain) 3 Days Qty: 12 RF: 0 No Action No Known Home Medications RF: 0 Stand-Alone Forms: [facility] Discharge Orders: Discharge Order (Routine); Ordered 09/02/18 Ordered By: Sunita Graves Skilled Items Patient informed of condition?: Yes DNR: Yes Discharge Level of Care: Skilled Communicable Disease: No Discharge Prognosis: Stable Admission Data Admit Date/Time: 08/27/18 01:16 Attending Provider: Sunita Graves Admit Provider: Ok Fuentes Primary Care Provider: PCP,NO Other Providers: Ok Fuentes ; Cristian Nunez Sabrina M. Service: Medical Other Interventions: Discharge Summary Assessment (RN) Last Done: 09/02/18 15:51 DC Date/Time DO NOT enter until pt leaves facility: 09/02/18 16:30
== END 2018-09-02 16:30 | DRG 544 ==
LOC: 4E 19:50 → ED 19:50 → 4E 23:56 → SUATTDRO 08-27 01:16

== ENCOUNTER 2019-11-09 09:10 | Inpatient (IN) ==
[2019-11-09] MEDS ORDERED: MoRPHine SULFATE 4 MG/ML 1 ML CARP\\VIAL IV PRN (09:23)
[2019-11-09] MEDS ORDERED: ONDANSETRON INJ 2 MG/ML 2 ML VIAL IV STA (09:23)
[2019-11-09] MEDS ORDERED: SODIUM CHLORIDE 0.9% 1000ML 1,000 ML IV SCH (09:30)
--- NOTE | 2019-11-09 09:35 | Emergency Department Note ---
Impression & Plan Acute pain of right hip, Fall, Closed fracture of right hip ED Provider Note NAME: OMER RODRIGUEZ AGE: 79 SEX: F : 1940 ARRIVES VIA: Ambulance INFORMANT: [Patient][ems, nursing] ED PROVIDER(S): [Daniel Nuñez MD] CHIEF COMPLAINT: Hip pain HISTORY OF PRESENT ILLNESS: The patient is an 79-year-old female who presents by ambulance for a potential right hip fracture. The patient apparently fell last night at around 2300, 10 hours ago. This was an unwitnessed fall. She seemed to have right hip discomfort. An outpatient film was reportedly positive for a hip fracture. There was no reported loss of consciousness. The patient denies any headache or neck pain. She is a poor historian as she does carry a history of dementia. Of note, she is a DNR. Given her dementia, no further history obtainable. REVIEW OF SYSTEMS: Unobtainable given her dementia. PMHx/PSHx: See Below SOCIAL HISTORY: See Below. PHYSICAL EXAM: GENERAL: Patient is in no acute distress. HEENT: No acute trauma, normocephalic atraumatic, mucous membranes moist, no nasal congestion, no scleral icterus. No scalp hematomas. NECK: No stridor, no adenopathy, no posterior cervical spine tenderness or step- off, trachea is midline. LUNGS: Clear to auscultation bilaterally, no wheeze, no rhonchi, breath sounds equal. HEART: 2/6 systolic murmur, regular rate and rhythm. ABDOMEN: Soft, nontender, bowel sounds positive, no hernias, no peritonitis. EXTREMITIES: No cyanosis. The patient does have external rotation and shortening to the right lower extremity. She is painful at the right lateral hip. Movement of the right leg causes hip pain. The right knee, right ankle and right foot seem nontender. There is no evidence for distal right lower extremity neurovascular compromise. NEUROLOGIC: Awake and alert, no acute motor or sensory deficits, no focal weakn ess. SKIN: No rash, no jaundice, no diaphoresis. DIFFERENTIAL DIAGNOSIS: Fracture, dislocation, neurovascular compromise, intracranial bleeding, skull fracture, cervical spine fracture, compartment syndrome, soft tissue injury, as well as other pathologies. EMERGENCY DEPARTMENT COURSE/PROCEDURES: ECG: Indication was fall and hip fracture. The ECG shows a sinus tachycardia with a rate of 110. There is significant baseline artifact. LVH is present. The QTc is 470. There are some inverted T waves in the inferior and lateral leads. Compared to an ECG from 26 August 2018, the inverted T waves in the inferior and lateral leads are now present. Continuous Cardiac Monitoring: An order was placed for continuous cardiac monitoring. The monitor shows a rate of 94 with normal sinus rhythm. MEDICAL DECISION MAKING: There is a mild leukocytosis, this is likely consistent with her pain. There is a normal hemoglobin and platelet count. No coagulopathy. No significant electrolyte abnormality or kidney failure. Urinalysis shows some contamination, no obvious infection. Rapid coronavirus testing returned negative. Chest film did not show pneumonia or CHF. Some chronic findings were seen. ECG showed a sinus tachycardia, no acute ischemic change. Right hip and pelvis films show an intertrochanteric right hip fracture. The pelvis did not appear fractured. Brain CT shows no acute bleed or mass-effect. C-spine CT shows no acute fracture. The patient was in pain. She received IV morphine, IV Zofran and IV saline. I did speak to the patient about the findings. I did speak with case management. Hospitalization is certainly warranted. Orthopedics has been consulted. Dr. Fong is aware of the patient. The patient is going to be hospitalized. She will require orthopedic intervention. The on-call hospitalist was consulted. It seems like only the hip was injured with her fall. Past Med/Surg History Medical History Breast cancer COPD (chronic obstructive pulmonary disease) History of breast cancer History of cancer of urethra IBS (irritable bowel syndrome) PAD (peripheral artery disease) Urethra cancer Surgical History History of cataract surgery History of intravascular stent placement S/P hernia repair S/P mastectomy "right" Family History Sister Breast cancer Mother Coronary heart disease Social History Smoking Status: Former smoker packs per day: 1; Years Smoked: 50; Second Hand Exposure: Yes; Hx Alcohol Use: No Hx Substance Use: No Preferred Language: Hebrew Communication Ability: Impaired Butcher'S Assistant Required: No Beliefs That Will Affect Care: Episcopal Current Living Situation: Assisted Current Living Situation Comment: [facility] Other Information That Helps Us Care for You: No Feels Safe at Home: Declines to Answer Allergies Allergies Allergy/AdvReac Type Severity Reaction Status Date / Time No Known Allergies Allergy Verified 11/09/19 09:53 Home Meds Home Medications Medication Instructions Recorded Confirmed acetaminophen 325 mg PO TID PRN 09/22/19 11/09/19 clonazepam 0.25 mg PO BID 09/22/19 11/09/19 fluvoxamine 100 mg PO DAILY 09/22/19 11/09/19 olanzapine 5 mg PO QAM 09/22/19 11/09/19 olanzapine 10 mg PO HS 09/22/19 11/09/19 sennosides [senna] 8.6 mg PO BID 09/22/19 11/09/19 divalproex 250 mg PO Q12H 11/09/19 11/09/19 fluvoxamine 100 mg PO BID 11/09/19 11/09/19 hydrocodone-acetaminophen 1 tab PO Q6H PRN 11/09/19 11/09/19 menthol [Biofreeze (menthol)] 1 applic TOPICAL TID 11/09/19 11/09/19 Results & Data (ED) Vital Signs Vital Signs - 24 hr 11/09/19 09:23 Temperature 37 C Temperature Source Oral Pulse Rate 107 H Respiratory Rate 16 Respiratory Effort / Characteristics Non-Labored Spontaneous Respiratory Depth Normal Respiratory Pattern Regular Blood Pressure 150/96 H Blood Pressure Mean 114 Blood Pressure Position Lying Pulse Oximetry 95 Oxygen Delivery Method Room Air Sepsis Recent Fever Within 48 Hours No Sepsis New/Unexplained Change in Mental Status N/A Sepsis Action Taken by Nursing No Action Required Home Medications Current Medication List: was personally reviewed by me Laboratory Data Attestation: I reviewed the patient's lab results. Result diagrams: 11/09/19 10:02 11/09/19 10:02 Lab Results 11/09/19 11/09/19 11/09/19 Range/Units 10:02 10:02 10:02 WBC 11.09 H (4.8-10.8) K/uL RBC 4.09 L (4.2-5.4) M/uL Hgb 12.1 (12.0-16.0) g/dL Hct 38.3 (37-47) % MCV 93.6 (80-100) fL MCH 29.6 (25-34) pg MCHC 31.6 L (32-36) g/dL RDW Std Deviation 53.2 H (36.4-46.3) fL RDW Coeff of Gem 15.5 H (11.5-14.5) % Plt Count 196 (130-400) K/uL MPV 10.4 (7.4-10.4) fL Immature Gran % (Auto) 0.2 % Neut % (Auto) 76.5 % Lymph % (Auto) 11.1 % [place] % (Auto) 12.0 % Eos % (Auto) 0.1 % Baso % (Auto) 0.1 % Neut # (Auto) 8.49 H (1.4-6.5) K/uL Lymph # (Auto) 1.23 (1.2-3.4) K/uL [place] # (Auto) 1.33 H (0.11-0.59) K/uL Eos # (Auto) 0.01 (0-0.5) K/uL Baso # (Auto) 0.01 (0-0.2) K/uL Immature Gran # (Auto) 0.02 (0.00-0.02) K/uL PT 10.5 (9.0-12.0) Seconds INR 1.0 (0.9-1.1) APTT 23.6 (21.0-31.0) Seconds PTT Ratio 0.8 Sodium (136-145) mmol/L Potassium (3.5-5.1) mmol/L Chloride (98-107) mmol/L Carbon Dioxide (21-32) mmol/L Anion Gap (3-11) BUN (7-18) mg/dl Creatinine (0.6-1.2) mg/dl Est Cr Clr Drug Dosing ml/min Est GFR ( Amer) Est GFR (Non-Af Amer) BUN/Creatinine Ratio (10-20) Glucose (70-99) mg/dl Calcium (8.5-10.1) mg/dl Urine Color Urine Appearance (Clear) Urine pH (4.5-7.5) Ur Specific [place] (1.000-1.030) Urine Protein (Negative) Urine Glucose (UA) (Negative) Urine Ketones (Negative) Urine Blood (Negative) Urine Nitrite (Negative) Urine Bilirubin (Negative) Urine Urobilinogen (Negative) Ur Leukocyte Esterase (Negative) Urine WBC (Auto) (0-5) /hpf Urine RBC (Auto) (0-4) /hpf U Hyaline Cast (Auto) (0-5) /lpf U Epithel Cells (Auto) (0-5) /lpf Urine Bacteria (Auto) (Negative) Ur Renal Epithelial Cell Urine Mucus (None Prsent) Urine Yeast (None Prsent) Blood Type AB Positive Antibody Screen NEGATIVE 11/09/19 11/09/19 Range/Units 10:02 10:08 WBC (4.8-10.8) K/uL RBC (4.2-5.4) M/uL Hgb (12.0-16.0) g/dL Hct (37-47) % MCV (80-100) fL MCH (25-34) pg MCHC (32-36) g/dL RDW Std Deviation (36.4-46.3) fL RDW Coeff of Gem (11.5-14.5) % Plt Count (130-400) K/uL MPV (7.4-10.4) fL Immature Gran % (Auto) % Neut % (Auto) % Lymph % (Auto) % [place] % (Auto) % Eos % (Auto) % Baso % (Auto) % Neut # (Auto) (1.4-6.5) K/uL Lymph # (Auto) (1.2-3.4) K/uL [place] # (Auto) (0.11-0.59) K/uL Eos # (Auto) (0-0.5) K/uL Baso # (Auto) (0-0.2) K/uL Immature Gran # (Auto) (0.00-0.02) K/uL PT (9.0-12.0) Seconds INR (0.9-1.1) APTT (21.0-31.0) Seconds PTT Ratio Sodium 145 (136-145) mmol/L Potassium 3.6 (3.5-5.1) mmol/L Chloride 107 (98-107) mmol/L Carbon Dioxide 32 (21-32) mmol/L Anion Gap 7.0 (3-11) BUN 13 (7-18) mg/dl Creatinine 0.76 (0.6-1.2) mg/dl Est Cr Clr Drug Dosing 54.0 ml/min Est GFR ( Amer) 85.3 Est GFR (Non-Af Amer) 73.6 BUN/Creatinine Ratio 16.8 (10-20) Glucose 151 H (70-99) mg/dl Calcium 9.5 (8.5-10.1) mg/dl Urine Color Yellow Urine Appearance Clear (Clear) Urine pH 6.5 (4.5-7.5) Ur Specific [place] 1.023 (1.000-1.030) Urine Protein Negative (Negative) Urine Glucose (UA) Negative (Negative) Urine Ketones 1+ H (Negative) Urine Blood Negative (Negative) Urine Nitrite Negative (Negative) Urine Bilirubin Negative (Negative) Urine Urobilinogen Negative (Negative) Ur Leukocyte Esterase 1+ H (Negative) Urine WBC (Auto) 1-5 (0-5) /hpf Urine RBC (Auto) 0-4 (0-4) /hpf U Hyaline Cast (Auto) 1-5 (0-5) /lpf U Epithel Cells (Auto) >30 H (0-5) /lpf Urine Bacteria (Auto) 1+ H (Negative) Ur Renal Epithelial Cell Not Reportable Urine Mucus Present A (None Prsent) Urine Yeast Budding A (None Prsent) Blood Type Antibody Screen Administered Medications Sodium Chloride (Nss 1000ml) 1,000 mls @ 150 mls/hr IV .[id number] BRIDGETT Stop: 11/09/19 16:09 Last Admin: 11/09/19 10:12 Dose: 150 mls/hr Documented by: [id number] Morphine Sulfate (Morphine Sulfate 4 Mg/Ml 1 Ml Carp\\Vial) 4 mg IV Q30M PRN PRN Reason: Severe Pain (Rating 7,8,9,10) Stop: 11/23/19 09:22 Last Admin: 11/09/19 10:12 Dose: 4 mg Documented by: [id number] Discontinued Medications Ondansetron HCl (Ondansetron Inj 2 Mg/Ml 2 Ml Vial) 4 mg IV NOW STA Stop: 11/09/19 09:24 Last Admin: 11/09/19 10:12 Dose: 4 mg Documented by: [id number] Imaging Data Radiologist's Impression: XR hip RT 2V w pelvis CLINICAL HISTORY: Fall. Right hip pain. COMPARISON STUDY: Pelvis 08/26/2018. FINDINGS: Comminuted and angulated/displaced fracture within the intertrochanteric right proximal femur. No dislocation. Deformity of the right pubic ring favors an old, healed fracture. No fracture or dislocation within the left hip. IMPRESSION: Comminuted and angulated/displaced right intertrochanteric femoral fracture. XR chest 1V portable HISTORY: hip fracture COMPARISON: Chest 08/26/2018. FINDINGS: Rotated study. No focal lung consolidations to suggest pneumonia. No evidence for pulmonary edema. The heart remains stable in size. No pleural effusions. No pneumothorax. IMPRESSION: No significant change compared to the prior study. No acute process. HEAD CT NONCONTRAST CT DOSE: 788.63 mGycm HISTORY: Fall. Headache. TECHNIQUE: Multiaxial CT images of the head were performed without the use of intravenous contrast. Automated exposure control was utilized for this study. A dose lowering technique was utilized adhering to the principles of ALARA. Comparison: Head CT 09/22/2019. Findings: Small amount of bubbly secretions within the right sphenoid sinus. This is not significantly changed. The mastoid air cells are clear. The calvarium and skull base are intact. There is no mass, hematoma, midline shift, acute infarct. White matter hypodensity is nonspecific but suggestive of jeremy rovascular ischemic change. The ventricles and sulci demonstrate mild age- related involutional changes. Impression: No acute intracranial abnormality. Atrophy and microvascular ischemic changes. CT OF THE CERVICAL SPINE CLINICAL HISTORY: Neck pain status post trauma COMPARISON STUDY: No previous studies for comparison. CT DOSE: 402.41 mGycm TECHNIQUE: CT scan of the cervical spine was performed from the skull base to the thoracic inlet. Images are reviewed in the axial, sagittal, and coronal planes. IV contrast was not administered for this examination. A dose lowering technique was utilized adhering to the principles of ALARA. FINDINGS: There is apical emphysema. No pneumothorax is visualized The prevertebral soft tissues are normal. No acute fractures or subluxations are visualized. There is mild loss in height in multiple cervical vertebral bodies which is felt to be old. There are multilevel degenerative changes IMPRESSION: No evidence of acute fracture or traumatic subluxation. Blood Pressure Blood Pressure Findings: Elevated blood pressure Blood Pressure Disposition: further management by hospitalist Head Trauma GCS Score: 14 Discharge Plan Visit Data Chief Complaint: Hip Pain ED Provider: Daniel Nuñez Discharge Problem: Acute pain of right hip, Fall, Closed fracture of right hip Patient Disposition: Admitted As Inpatient Condition: Fair Discharge Instructions Interventions: ED Discharge Assessment Last Done: 11/09/19 12:46 Discharge Problem: Fall Qualifiers: Encounter type: initial encounter Qualified Code(s): W19.XXXA - Unspecified fall, initial encounter Closed fracture of right hip Qualifiers: Encounter type: initial encounter Qualified Code(s): S72.001A - Fracture of unspecified part of neck of right femur, initial encounter for closed fracture
--- NOTE | 2019-11-09 09:55 | XRay Report ---
XR hip RT 2V w pelvis CLINICAL HISTORY: Fall. Right hip pain. COMPARISON STUDY: Pelvis 08/26/2018. FINDINGS: Comminuted and angulated/displaced fracture within the intertrochanteric right proximal fem ur. No dislocation. Deformity of the right pubic ring favors an old, healed fracture. No fracture or dislocation within the left hip. IMPRESSION: Comminuted and angulated/displaced right intertrochanteric femoral fracture. ACT 112: Negative or not required by law. Electronically signed by: Francisco Zavaleta M.D. 11/09/2019 9:54 AM
--- NOTE | 2019-11-09 10:01 | XRay Report ---
XR chest 1V portable HISTORY: hip fracture COMPARISON: Chest 08/26/2018. FINDINGS: Rotated study. No focal lung consolidations to suggest pneumonia. No evidence for pulmonary edema. The heart remains stable in size. No pleural effusions. No pneumothorax. IMPRESSION: No significant change compared to the prior study. No acute process. ACT 112: Negative or not required by law. Electronically signed by: Francisco Zavaleta M.D. 11/09/2019 10:00 AM
[2019-11-09 10:15] LABS: Basophils # (auto) 0.01 K/uL (0-0.2); Basophils % (auto) 0.1 %; Eosinophils # (auto) 0.01 K/uL (0-0.5); Eosinophils % (auto) 0.1 %; Hematocrit (blood only) 38.3 % (37-47); Hemoglobin 12.1 g/dL (12.0-16.0); Immature Granulocytes # (auto) 0.02 K/uL (0.00-0.02); Immature Granulocytes % (auto) 0.2 %; Lymphocytes # (auto) 1.23 K/uL (1.2-3.4); Lymphocytes % (auto) 11.1 %; Mean Corpuscular Hemoglobin 29.6 pg (25-34); Mean Corpuscular Hgb Conc 31.6 g/dL (32-36); Mean Corpuscular Volume 93.6 fL (80-100); Mean Platelet Volume 10.4 fL (7.4-10.4); Monocytes # (auto) 1.33 K/uL (0.11-0.59); Neutrophils # (auto) 8.49 K/uL (1.4-6.5); Neutrophils % (auto) 76.5 %; Platelet Count 196 K/uL (130-400); RDW Coefficient of Variation 15.5 % (11.5-14.5); RDW Standard Deviation 53.2 fL (36.4-46.3); Red Blood Count 4.09 M/uL (4.2-5.4); White Blood Count 11.09 K/uL (4.8-10.8)
[2019-11-09 10:20] LABS: Appearance Urine Clear (Clear); Bilirubin Urine Negative (Negative); Blood Urine Negative (Negative); Color Urine Yellow; Epithelial Cell Urine Auto >30 /lpf (0-5); Glucose Urine UA Negative (Negative); Ketones Urine 1+ (Negative); Leukocyte Esterase Urine 1+ (Negative); Nitrite Urine Negative (Negative); Protein Urine Negative (Negative); Specific Gravity Urine 1.023 (1.000-1.030); Urobilinogen Urine Negative (Negative); pH Urine 6.5 (4.5-7.5)
--- NOTE | 2019-11-09 10:21 | History & Physical Report ---
Date of Service November 09, 2019 Assessment & Plan (1) Fall: (2) Displaced intertrochanteric fracture of right femur: This is an 79-year-old female with significant past medical history of COPD, history of tobacco abuse, PAD with history of stent to RLE, history of right DVT, vascular dementia with behaviors, depression, history of breast, urethral and bladder cancer who presents to ED after suffering a fall at school which facility prior to arrival. R femur xray: IMPRESSION: Comminuted and angulated/displaced right intertrochanteric femoral fracture. CT Head/Neck ordered admit to med/surg consult orthopedics Dr. Fong and Anesthesia Per conversation with ED provider and Dr. Fong surgery unlikely to happen today NPO after midnight IVF D5NS 75cc/hr x 2 L IV Rocephin q24h due to abnormal urine until culture returns IV acetaminophen 1g q8hr IV morphine 1g prn q2hr severe pain Bedrest, ICE (3) COPD (chronic obstructive pulmonary disease): no acute exac monitor (4) PAD (peripheral artery disease): hx of stent to RLE pt is not on asa/statin pulses intact distally (5) Dementia: with behaviors continue zyprexa, depakote, fluvoxamine recommend frequent re orientation pt likely to experience delirium (6) DVT prophylaxis: SCD/TEDS SQ Heparin - will give 2 doses today and d/c before midnight due to procedure in am. due to high risk for VTE reassess post operatively need/timing to resume VTE prophylaxis Disposition: admit to med surg Follow up: PCP Dr. Ordonez/Kirsten Barrientos PA-C at [facility] Pt was seen and examined in collaboration with Dr. Parra, please see addendum History of Present Illness Chief Complaint: Fall at custodial facility prior to arrival. Primary Care Provider: [facility] This is an 79-year-old female with significant past medical history of COPD, history of tobacco abuse, PAD with history of stent to RLE, history of right DVT, vascular dementia with behaviors, depression, history of breast, urethral and bladder cancer who presents to ED after suffering a fall at school which facility prior to arrival. Daughter is at bedside. History unable to be obtained secondary to cognitive status in light of dementia. According to report patient was found at bedside after sustaining a fall. Fall was unwitnessed. Unknown if loss of consciousness or hitting head. She complained of right hip pain. Imaging at facility revealed an intertrochanteric right comminuted displaced hip fracture. Initially overnight family was reluctant to send patient to ER until spoke with a.m. provider. At baseline despite dementia patient is ambulatory without assist device and is very mobile according to daughter. Family was convinced to send patient to ED in a.m. In ER patient is agitated and appears uncomfortable. Imaging confirms right intertrochanteric femur fracture that is comminuted and angulated/displaced. ER provider did speak with on-call orthopedic surgeon Dr. Fong. Further lab work notable for leukocytosis 11.09k, H&H 12.1 and 38.3, platelet 196, BUN 13, creatinine 0.76, glucose 151. Urinalysis consistent with leukocyte esterase, +1 bacteria and numerous epithelial cells. Allergies Allergy/AdvReac Type Severity Reaction Status Date / Time No Known Allergies Allergy Verified 11/09/19 09:53 Home Medications Home Medications Medication Instructions Recorded Confirmed Type acetaminophen 325 mg PO TID PRN 09/22/19 11/09/19 History clonazepam 0.25 mg PO BID 09/22/19 11/09/19 History olanzapine 5 mg PO QAM 09/22/19 11/09/19 History olanzapine 10 mg PO HS 09/22/19 11/09/19 History sennosides [senna] 8.6 mg PO BID 09/22/19 11/09/19 History divalproex 250 mg PO Q12H 11/09/19 11/09/19 History fluvoxamine 100 mg PO BID 11/09/19 11/09/19 History hydrocodone-acetaminophen 1 tab PO Q6H PRN 11/09/19 11/09/19 History menthol [Biofreeze (menthol)] 1 applic TOPICAL TID 11/09/19 11/09/19 History Past Med/Surg History Medical History Breast cancer COPD (chronic obstructive pulmonary disease) History of breast cancer History of cancer of urethra IBS (irritable bowel syndrome) PAD (peripheral artery disease) Urethra cancer Surgical History History of cataract surgery History of intravascular stent placement S/P hernia repair S/P mastectomy "right" Family History Sister Breast cancer Mother Coronary heart disease Social History Smoking Status: Former smoker packs per day: 1; Years Smoked: 50; Second Hand Exposure: Yes; Hx Alcohol Use: No Hx Substance Use: No Preferred Language: Nigerien Communication Ability: Effective School Community Relations Coordinator Required: No Beliefs That Will Affect Care: None Current Living Situation: Alf Current Living Situation Comment: [facility] Other Information That Helps Us Care for You: No Feels Safe at Home: Declines to Answer Review of Systems Review of Systems: Unobtainable due to cognitive status Physical Exam Physical Exam: Constitutional: WD/WN, elderly, F, vitals as above, pt agitat ed, trying to move oxymask, sitting up in bed, pleasant, conversing easily Head: Normocephalic, Atraumatic Eyes: PERRL, conjunctivae normal, anicteric sclerae ENMT: external ear and nose normal, oropharynx normal Neck: trachea midline, no thyromegaly normal visual inspection Respiratory: normal respiratory effort, lungs clear to auscultation, no wheeze, rales, rhonchi. Normal insp/exp effort, no accessory muscle use Cardiovascular: RRR, no edema Vessels: no JVD or carotid bruit Chest: normal inspection of chest Abdomen: normal bowel sounds, soft, nontender, no hepatosplenomegaly Musculoskeletal: no cyanosis or clubbing, shortened, externally rotated RLE, pain to palpation R lat hip, NVI Distally Skin: no rashes, warm and dry normal turgor Neurologic: PERRL, EOMI, accommodation nl, no face palsy, no dysarthria CN's II-XI intact bilaterally and moves all extremities Psychiatric: alert to self only, euthymic affect Lymphatic: no cervical or axillary lymphadenopathy : mares cath with yellow urine Results & Data Results & Data ([facility]) Vital Signs (Past 12 Hours) Vital Signs Temp Pulse Resp BP Pulse Ox 11/09/19 09:23 37 C 107 H 16 150/96 H 95 Laboratory Results Short CBC 11/09/19 Range/Units 10:02 WBC 11.09 H (4.8-10.8) K/uL Hgb 12.1 (12.0-16.0) g/dL Hct 38.3 (37-47) % Plt Count 196 (130-400) K/uL BMP 11/09/19 10:02 Sodium 145 Potassium 3.6 Chloride 107 Carbon Dioxide 32 BUN 13 Creatinine 0.76 Glucose 151 H Calcium 9.5 Urine 11/09/19 Range/Units 10:08 Urine Color Yellow Urine Appearance Clear (Clear) Urine pH 6.5 (4.5-7.5) Ur Specific [place] 1.023 (1.000-1.030) Urine Protein Negative (Negative) Urine Glucose (UA) Negative (Negative) Diagnostic Findings Hip/pelvis xray: IMPRESSION: Comminuted and angulated/displaced right intertrochanteric femoral fracture. CXR: IMPRESSION: No significant change compared to the prior study. No acute process. Medications Administered Sodium Chloride (Nss 1000ml) 1,000 mls @ 150 mls/hr IV .Q6H40M BRIDGETT Stop: 11/09/19 16:09 Last Admin: 11/09/19 10:12 Dose: 150 mls/hr Documented by: [id number] Morphine Sulfate (Morphine Sulfate 4 Mg/Ml 1 Ml Carp\\Vial) 4 mg IV Q30M PRN PRN Reason: Severe Pain (Rating 7,8,9,10) Stop: 11/23/19 09:22 Last Admin: 11/09/19 10:12 Dose: 4 mg Documented by: [id number] Discontinued Medications Ondansetron HCl (Ondansetron Inj 2 Mg/Ml 2 Ml Vial) 4 mg IV NOW STA Stop: 11/09/19 09:24 Last Admin: 11/09/19 10:12 Dose: 4 mg Documented by: [id number] ECG Rate (beats per minute): 110 Rhythm: sinus tachycardia Code Status & VTE Plan Code Status DNR VTE Prophylaxis Plan VTE Prophylaxis will be ordered: Yes Supervising Physician Co-Signing Physician Notes Attending addendum: Patient seen and examined, care coordinated with Monica Flannery PA-C Labs and images reviewed This 79-year-old female with advanced dementia, head adenitis overall, leading to right hip fracture No information could be on obtained from patient, as she was sedated most part of the time, when wakes up, was pulling at leads, and IV lines Daughter came present at bedside, provided most of the information At baseline patient has advanced dementia, does not recognize person, does not able to follow any commands Patient has ambulatory dysfunction, sustained a fall a year ago leading to tailbone fracture Patient will need surgical repair of right hip/right femoral intratrochanteric fracture-daughter/POA is agreeable Admit patient to medical floor, as patient is pulling at cardiac leads Sinus tachycardia noted: Possible secondary to pain symptoms, need to rule out dehydration, possible infection/UTI Continue with IV as needed morphine, hold for sedation Patient started with IV fluids Empiric antibiotic with IV Rocephin for possible UTI Hypoxia: Noted to be saturation dropping to 88% in room air Possibly secondary to situation, as patient wakes up, it improves up to 90, but unable to follow commands for taking deep breath Placed on 2 L oxygen via facemask(pulse of nasal cannula) with a saturation improved to more than 95% CODE STATUS: DNR/DNI Preop cardiac clearance/preop cardiac risk stratification: Patient is moderate risk secondary to her advanced age Lab work does not show any evidence of overwhelming infection or acute renal failure or electrolyte derangement Continue IV fluids for sinus tachycardia/borderline Low risk for intra-and post operative cardiac arrhythmia, heart failure or MS Patient should proceed for right hip orthopedic procedure, no other studies/imaging recommended at this time Plan of care discussed with anesthesiology Carola Parra MD (1) Dementia Dementia behavioral disturbance: with behavioral disturbance Dementia type: unspecified type Qualified Code(s): F03.91 - Unspecified dementia with behavioral disturbance (2) Fall Encounter type: initial encounter Qualified Code(s): W19.XXXA - Unspecified fall, initial encounter
[2019-11-09 10:32] LABS: BUN Creatinine Ratio 16.8 (10-20); Calcium 9.5 mg/dl (8.5-10.1); Est GFR (African American) 85.3; Est GFR (Non-African American) 73.6; Partial Thromboplastin Ratio 0.8; Partial Thromboplastin Time 23.6 Seconds (21.0-31.0); Potassium 3.6 mmol/L (3.5-5.1); Prothrombin Time 10.5 Seconds (9.0-12.0)
[2019-11-09 10:36] LABS: Mucus Urine Present (None Prsent); RBC Urine Automated 0-4 /hpf (0-4)
[2019-11-09 10:37] LABS: Bacteria Urine Automated 1+ (Negative)
--- NOTE | 2019-11-09 13:02 | CT Scan Report ---
HEAD CT NONCONTRAST CT DOSE: 788.63 mGycm HISTORY: Fall. Headache. TECHNIQUE: Multiaxial CT images of the head were performed without the use of intravenous contrast. A utomated exposure control was utilized for this study. A dose lowering technique was utilized adheri ng to the principles of ALARA. Comparison: Head CT 09/22/2019. Findings: Small amount of bubbly secretions within the right sphenoid sinus. This is not significantl y changed. The mastoid air cells are clear. The calvarium and skull base are intact. There is no mass , hematoma, midline shift, acute infarct. White matter hypodensity is nonspecific but suggestive of m icrovascular ischemic change. The ventricles and sulci demonstrate mild age-related involutional pritchard ges. Impression: No acute intracranial abnormality. Atrophy and microvascular ischemic changes. ACT 112: Negative or not required by law. Electronically signed by: Francisco Zavaleta M.D. 11/09/2019 1:00 PM
--- NOTE | 2019-11-09 13:03 | CT Scan Report ---
CT OF THE CERVICAL SPINE CLINICAL HISTORY: Neck pain status post trauma COMPARISON STUDY: No previous studies for comparison. CT DOSE: 402.41 mGycm TECHNIQUE: CT scan of the cervical spine was performed from the skull base to the thoracic inlet. Katalina ges are reviewed in the axial, sagittal, and coronal planes. IV contrast was not administered for thi s examination. A dose lowering technique was utilized adhering to the principles of ALARA. FINDINGS: There is apical emphysema. No pneumothorax is visualized The prevertebral soft tissues are normal. No acute fractures or subluxations are visualized. There i s mild loss in height in multiple cervical vertebral bodies which is felt to be old. There are multilevel degenerative changes IMPRESSION: No evidence of acute fracture or traumatic subluxation. ACT 112: Negative or not required by law. Electronically signed by: Ted Meier M.D. 11/09/2019 1:02 PM
--- NOTE | 2019-11-09 13:28 | Electrocardiogram Report ---
Test Reason : Blood Pressure : / mmHG Vent. Rate : 110 BPM Atrial Rate : 110 BPM P-R Int : 134 ms QRS Dur : 074 ms QT Int : 348 ms P-R-T Axes : 025 063 021 degrees QTc Int : 470 ms Poor data quality, interpretation may be adversely affected Sinus tachycardia Possible Left atrial enlargement Left ventricular hypertrophy with repolarization abnormality Abnormal ECG When compared with ECG of 26-AUG-2018 19:58, Minimal criteria for Septal infarct are no longer Present ST now depressed in Anterior leads Confirmed by Darron Harper ([id number]) on 11/09/2019 1:28:00 PM [facility]: [facility] Confirmed By:Darron Harper
[2019-11-09] MEDS ORDERED: CARBOHYDRATES FOR HYPOGLYCEMIA PO PRN (14:18)
[2019-11-09] MEDS ORDERED: ACETAMINOPHEN 325 MG TAB PO PRN (14:18)
[2019-11-09] MEDS ORDERED: NALOXONE HCL 0.4 MG/1 ML VIAL/CARP IV PRN (14:18)
[2019-11-09] MEDS ORDERED: D5W AND NSS 1,000 ML IV SCH (14:18)
[2019-11-09] MEDS ORDERED: GLUCOSE 10 TABS/TUBE PO PRN (14:18)
[2019-11-09] MEDS ORDERED: MAGNESIUM HYDROXIDE SUSP 30 ML UDC PO PRN (14:18)
[2019-11-09] MEDS ORDERED: DEXTROSE 50% 50 ML SYRINGE IV PRN (14:18)
[2019-11-09] MEDS ORDERED: ONDANSETRON INJ 2 MG/ML 2 ML VIAL IV PRN (14:18)
[2019-11-09] MEDS ORDERED: GLUCAGON FOR INJ 1 MG VIAL SQ PRN (14:18)
[2019-11-09] MEDS ORDERED: bisacodyL 10 MG SUPP PR PRN (14:18)
[2019-11-09] MEDS ORDERED: GLUCOSE 40% GEL 15 GM TUBE PO PRN (14:18)
[2019-11-09] MEDS ORDERED: HYDROCODONE/ACETAMOPHEN 5/325MG TAB PO PRN (14:32)
[2019-11-09] MEDS: DIVALPROEX EXTENDED RELEASE 250 MG TABCR PO SCH (15:50)
[2019-11-09] MEDS: ACETAMINOPHEN 1,000 MG/100 ML VIAL IV SCH ×2 (15:51→22:00)
[2019-11-09] MEDS: cefTRIAXone SODIUM 1,000 MG in DEXTROSE 5% 50 ML IV SCH (15:51)
[2019-11-09] MEDS: HEPARIN SOD 5,000 UNIT/0.5 ML VIAL SQ SCH ×2 (16:26→21:54)
[2019-11-09] MEDS: [UNRECOGNIZED DRUG - REMARK] SCH ×2 (16:53→23:33)
--- NOTE | 2019-11-09 16:56 | Communication Note ---
Date of Service: November 09, 2019 Preop cardiac clearance/preop cardiac risk stratification: Patient is moderate risk secondary to her advanced age Lab work does not show any evidence of overwhelming infection or acute renal failure or electrolyte derangement Continue IV fluids for sinus tachycardia/borderline Low risk for intra-and post operative cardiac arrhythmia, heart failure or IN Patient should proceed for right hip orthopedic procedure, no other studies/imaging recommended at this time Plan of care discussed with anesthesiology Carola Parra MD
[2019-11-09] MEDS: INSULIN ASPART 100 UNITS/ML 3 ML PEN SC SCH ×2 (17:46→23:12)
--- NOTE | 2019-11-09 19:34 | Anesthesiology Consultation ---
Date of Service November 09, 2019 The patient was sleeping when I stopped by her room so an exam was not performed. The patient has remained tachycardic with HR in the 100s. Her other vital signs have been stable. I discussed the patient's tachycardia and her EKG with Dr. Parra who will gently hydrate the patient and monitor her overnight. The patient has dementia at baseline so consent for anesthesia will need to be obtained from her daughter. The patient's daughter will be present tomorrow and will be available by phone. The patient tested negative for Covid 19 today. Assessment & Plan (1) Encounter for pre-operative examination: Chart Review Chart Review: Acceptable Risk for Surgery and Patient NOT seen in Pre Admission Testing Consults Requested none medicine is following the patient History Surgery Operation Date: 11/10/19 07:00 Proposed Procedures p Right Troch Nail - Hajaedgar Loo Height/Weight Height: 5 ft 6 in Weight: 53.3 kg Allergies Allergy/AdvReac Type Severity Reaction Status Date / Time No Known Allergies Allergy Verified 11/09/19 09:53 Medications Home Medications Medication Instructions Recorded Confirmed Last Taken acetaminophen 325 mg PO TID PRN 09/22/19 11/09/19 11/08/19 23:35 clonazepam 0.25 mg PO BID 09/22/19 11/09/19 11/08/19 17:00 olanzapine 5 mg PO QAM 09/22/19 11/09/19 11/08/19 08:00 olanzapine 10 mg PO HS 09/22/19 11/09/19 11/08/19 20:00 sennosides [senna] 8.6 mg PO BID 09/22/19 11/09/19 11/08/19 17:00 divalproex 250 mg PO Q12H 11/09/19 11/09/19 11/08/19 20:00 fluvoxamine 100 mg PO BID 11/09/19 11/09/19 11/08/19 20:00 hydrocodone-acetaminophen 1 tab PO Q6H PRN 11/09/19 11/09/19 11/09/19 02:51 menthol [Biofreeze (menthol)] 1 applic TOPICAL TID 11/09/19 11/09/19 11/08/19 20:00 Active Medications Generic Name Dose Route Start Last Admin Trade Name Freq PRN Reason Stop Dose Admin Divalproex Sodium 250 mg 11/09/19 14:18 11/09/19 15:50 Divalproex Extended Release 250 Mg Tabcr PO 12/09/19 14:17 250 mg Q12H BRIDGETT Administration Heparin Sodium (Porcine) 5,000 units 11/09/19 14:18 11/09/19 16:26 Heparin Sod 5,000 Unit/0.5 Ml Vial SQ 11/09/19 22:01 5,000 units Q8 BRIDGETT Administration Dextrose/Sodium Chloride 1,000 mls @ 100 mls/hr 11/09/19 14:18 11/09/19 15:50 D5w And Nss IV 11/10/19 00:17 75 mls/hr .Q10H BRIDGETT Administration Acetaminophen 1,000 mg in 100 mls @ 400 mls/hr 11/09/19 15:00 11/09/19 16:30 Ofirmev IV 11/12/19 14:59 Infused Q8H BRIDGETT Infusion Ceftriaxone Sodium 1,000 mg/ 50 mls @ 100 mls/hr 11/09/19 15:00 11/09/19 16:30 Dextrose IV 11/14/19 14:59 Infused Q24H BRIDGETT Infusion Protocol Insulin Aspart 0 units 11/09/19 16:30 11/09/19 17:46 Insulin Aspart 100 Units/Ml 3 Ml Pen SC 12/09/19 16:29 Not Given ACHS BRIDGETT Miscellaneous 1 ea 11/09/19 16:00 11/09/19 16:53 Biofreeze: Order Awaiting Action N/A 12/09/19 15:59 Not Given QS BRIDGETT Past Medical History Medical History (Updated 11/09/19 @ 19:35 by Francisco Santos MD) Breast cancer COPD (chronic obstructive pulmonary disease) History of breast cancer History of cancer of urethra IBS (irritable bowel syndrome) PAD (peripheral artery disease) Urethra cancer Vascular dementia Past Family History Family History Sister Breast cancer Mother Coronary heart disease Past Surgical History Surgical History History of cataract surgery History of intravascular stent placement S/P hernia repair S/P mastectomy "right" Social History Smoking Status: Former smoker tobacco type: cigarettes Hx Alcohol Use: No Hx Substance Use: No Physical Exam Vital Signs Last Vital Signs Temp 36.3 C L 11/09/19 15:03 Pulse 106 H 11/09/19 15:03 Resp 18 11/09/19 15:03 BP 129/80 11/09/19 15:03 Pulse Ox 99 11/09/19 15:03 Testing Laboratory Results 11/09/19 10:02 11/09/19 10:02 PT 10.5 Seconds (9.0-12.0) 11/09/19 10:02 INR 1.0 (0.9-1.1) 11/09/19 10:02 APTT 23.6 Seconds (21.0-31.0) 11/09/19 10:02 Urine Color Yellow 11/09/19 10:08 Urine Appearance Clear (Clear) 11/09/19 10:08 Urine pH 6.5 (4.5-7.5) 11/09/19 10:08 Ur Specific [place] 1.023 (1.000-1.030) 11/09/19 10:08 Urine Protein Negative (Negative) 11/09/19 10:08 Urine Glucose (UA) Negative (Negative) 11/09/19 10:08 Urine Ketones 1+ (Negative) H 11/09/19 10:08 Urine Nitrite Negative (Negative) 11/09/19 10:08 Ur Leukocyte Esterase 1+ (Negative) H 11/09/19 10:08 Urine WBC (Auto) 1-5 /hpf (0-5) 11/09/19 10:08 Urine RBC (Auto) 0-4 /hpf (0-4) 11/09/19 10:08 U Hyaline Cast (Auto) 1-5 /lpf (0-5) 11/09/19 10:08 U Epithel Cells (Auto) >30 /lpf (0-5) H 11/09/19 10:08 Urine Bacteria (Auto) 1+ (Negative) H 11/09/19 10:08 Blood Type AB Positive 11/09/19 10:02 Antibody Screen NEGATIVE 11/09/19 10:02 Electrocardiogram Date: 11/09/19 Findings: + LVH and + ST @ (110) ST depression in anterior leads Chest X-Ray Date: 11/09/19 XR chest 1V portable HISTORY: hip fracture COMPARISON: Chest 08/26/2018. FINDINGS: Rotated study. No focal lung consolidations to suggest pneumonia. No evidence for pulmonary edema. The heart remains stable in size. No pleural effusions. No pneumothorax. IMPRESSION: No significant change compared to the prior study. No acute process. ACT 112: Negative or not required by law. Electronically signed by: Francisco Zavaleta M.D. 11/09/2019 10:00 AM Dictated: 11/09/19 0956 Transcribed: 11/09/19 0956 Cervical Spine Date: 11/09/19 CT OF THE CERVICAL SPINE CLINICAL HISTORY: Neck pain status post trauma COMPARISON STUDY: No previous studies for comparison. CT DOSE: 402.41 mGycm TECHNIQUE: CT scan of the cervical spine was performed from the skull base to the thoracic inlet. Images are reviewed in the axial, sagittal, and coronal planes. IV contrast was not administered for this examination. A dose lowering technique was utilized adhering to the principles of ALARA. FINDINGS: There is apical emphysema. No pneumothorax is visualized The prevertebral soft tissues are normal. No acute fractures or subluxations a re visualized. There is mild loss in height in multiple cervical vertebral bodies which is felt to be old. There are multilevel degenerative changes IMPRESSION: No evidence of acute fracture or traumatic subluxation. ACT 112: Negative or not required by law. Electronically signed by: Ted Meier M.D. 11/09/2019 1:02 PM Dictated: 11/09/19 1257 Transcribed: 11/09/19 [address] HEAD [address] NONCONTRAST CT DOSE: 788.63 mGycm HISTORY: Fall. Headache. TECHNIQUE: Multiaxial CT images of the head were performed without the use of intravenous contrast. Automated exposure control was utilized for this study. A dose lowering technique was utilized adhering to the principles of ALARA. Comparison: Head CT 09/22/2019. Findings: Small amount of bubbly secretions within the right sphenoid sinus. This is not significantly changed. The mastoid air cells are clear. The calvarium and skull base are intact. There is no mass, hematoma, midline shift, acute infarct. White matter hypodensity is nonspecific but suggestive of microvascular ischemic change. The ventricles and sulci demonstrate mild age- related involutional changes. Impression: No acute intracranial abnormality. Atrophy and microvascular ischemic changes. ACT 112: Negative or not required by law. Electronically signed by: Francisco Zavaleta M.D. 11/09/2019 1:00 PM Dictated: 11/09/19 1252 Transcribed: 11/09/19 1252
[2019-11-09] MEDS ORDERED: clonazePAM 0.25 MG TAB PO SCH (21:00)
[2019-11-09] MEDS: DOCUSATE SODIUM/SENNA 50/8.6MG TAB PO SCH (21:53)
[2019-11-09] MEDS: FLUVOXAMINE MALEATE 50 MG TAB PO SCH (21:53)
[2019-11-09] MEDS: OLANZapine 10 MG TAB PO SCH (21:54)
[2019-11-09] MEDS: clonazePAM 0.5 MG TAB PO SCH (21:59)
[2019-11-09] MEDS ORDERED: SODIUM CHLORIDE 0.9% 500 ML IV SCH (23:15)
[2019-11-10] MEDS ORDERED: Nursing to Pharmacy Communication SCH ×2 (00:01→22:45)
[2019-11-10] MEDS: INSULIN ASPART 100 UNITS/ML 3 ML PEN SC SCH ×4 (00:30→22:34)
[2019-11-10] MEDS: DIVALPROEX EXTENDED RELEASE 250 MG TABCR PO SCH ×2 (02:19→14:43)
[2019-11-10] MEDS: MoRPHine SULFATE 2 MG/ML CARP IV PRN ×4 (02:25→14:52)
[2019-11-10] MEDS ORDERED: D5W AND NSS 1,000 ML IV SCH (06:00)
[2019-11-10] MEDS ORDERED: CEFAZOLIN 2000MG 2,000 MG/15 ML SYR IV SCH (06:00)
[2019-11-10] MEDS: ACETAMINOPHEN 1,000 MG/100 ML VIAL IV SCH ×2 (06:07→14:51)
[2019-11-10 06:09] LABS: Hematocrit (blood only) 32.6 % (37-47); Hemoglobin 9.9 g/dL (12.0-16.0); Mean Corpuscular Hemoglobin 29.3 pg (25-34); Mean Corpuscular Hgb Conc 30.4 g/dL (32-36); Mean Corpuscular Volume 96.4 fL (80-100); Mean Platelet Volume 10.8 fL (7.4-10.4); Platelet Count 160 K/uL (130-400); RDW Coefficient of Variation 15.8 % (11.5-14.5); RDW Standard Deviation 55.9 fL (36.4-46.3); Red Blood Count 3.38 M/uL (4.2-5.4); White Blood Count 7.57 K/uL (4.8-10.8)
[2019-11-10 06:36] LABS: BUN Creatinine Ratio 17.1 (10-20); Calcium 8.7 mg/dl (8.5-10.1); Creatinine Clr Calc Pharmacy 48.2 ml/min; Est GFR (African American) 83.9; Est GFR (Non-African American) 72.4; Potassium 3.3 mmol/L (3.5-5.1)
--- NOTE | 2019-11-10 08:13 | Communication Note ---
Date of Service: November 10, 2019 A.m. labs and vitals reviewed, BP stable 124/74, with resolution of tachycardia heart rate in 90s Patient was given IV fluids overnight, Sodium borderline elevated 146, IV fluids with NS is discontinued Hypokalemia: Potassium 3.3 Ordered 20 M EQ of IV potassium rider She has been n.p.o. past midnight for hip surgery today Carola Parra MD
[2019-11-10] MEDS: [UNRECOGNIZED DRUG - REMARK] SCH (08:21)
[2019-11-10] MEDS: POTASSIUM CHLORIDE / WTR 10 MEQ/100 ML PLCT IV SCH ×2 (08:34→09:34)
--- NOTE | 2019-11-10 08:50 | Orthopedic Consultation ---
Date of Consultation November 10, 2019 Assessment & Plan (1) Displaced intertrochanteric fracture of right femur: Remain NPO Bed rest until procedure Appreciate medical management and clearance Discussed diagnosis and recommended treatment with POLinda Newton. Supervising Physician Co-Signing Physician Notes Recommended closed or open reduction and internal fixation with trochanteric fixation nail. Discussed risks and benefits in detail with the POA, who was at the bedside in preop area. Risks discussed included but are not limited to infection, NV injury, bleeding, nonunion/malunion, need for revision surgery, symptomatic hardware, and complications related to anesthesia. Informed consent obtained from POA. Plan for 6 weeks of DVT ppx postoperative. History of Present Illness Reason for Consultation: Deanne is a 79 year old female with a PMH of vascular dementia, PAD, COPD, IBS, and history of right DVT. She presents today after suffering a right intertrochanteric hip fracture on 11/09/19. She fell at her dementia facility where she currently resides. Unable to receive full history due to cognitive status of dementia. After reviewing records, patient was found at bedside after falling. The fall was unwitnessed. She complained of right hip pain at the time and had imaging done which revealed a comminuted, displaced right intertrochanteric hip fracture. At baseline, patient is ambulatory without an assisted device and is generally very mobile, according to daughter. Attending Physician: Carola Parra MD Allergies Allergy/AdvReac Type Severity Reaction Status Date / Time No Known Allergies Allergy Verified 11/09/19 09:53 Home Medications Home Medications Medication Instructions Recorded Confirmed Type acetaminophen 325 mg PO TID PRN 09/22/19 11/09/19 History clonazepam 0.25 mg PO BID 09/22/19 11/09/19 History olanzapine 5 mg PO QAM 09/22/19 11/09/19 History olanzapine 10 mg PO HS 09/22/19 11/09/19 History sennosides [senna] 8.6 mg PO BID 09/22/19 11/09/19 History divalproex 250 mg PO Q12H 11/09/19 11/09/19 History fluvoxamine 100 mg PO BID 11/09/19 11/09/19 History hydrocodone-acetaminophen 1 tab PO Q6H PRN 09/16/20 09/16/20 History menthol [Biofreeze (menthol)] 1 applic TOPICAL TID 11/09/19 11/09/19 History Patient History Medical History Breast cancer COPD (chronic obstructive pulmonary disease) History of breast cancer History of cancer of urethra IBS (irritable bowel syndrome) PAD (peripheral artery disease) Urethra cancer Vascular dementia Surgical History History of cataract surgery History of intravascular stent placement S/P hernia repair S/P mastectomy "right" Family History Sister Breast cancer Mother Coronary heart disease Social History Smoking Status: Former smoker packs per day: 1; Years Smoked: 50; Second Hand Exposure: Yes; Hx Alcohol Use: No Hx Substance Use: No Preferred Language: Cypriot Communication Ability: Effective Corporate Travel Consultant Required: No Beliefs That Will Affect Care: None Current [facility]uation[facility] Current Living Situation Comment: [place] Other Information That Helps Us Care for You: No Feels Safe at Home: Declines to Answer Review of Systems Constitutional: no fever, no chills and no problem reported Eyes: as per Subjective / HPI; no problem reported Ear, Nose, Mouth, Throat: as per Subjective / HPI; no problem reported Respiratory: as per Subjective / HPI; no problem reported Cardiovascular: no edema and no problem reported Gastrointestinal: no nausea, no vomiting and no problem reported Musculoskeletal: as per Subjective / HPI Integumentary: as per Subjective / HPI; no problem reported Neurologic: no tingling, no paresthesia and no problem reported Psychiatric: no problem reported Endocrine: as per Subjective / HPI Hematologic / Lymphatic: as per Subjective / HPI Allergy / Immunological: no problem reported Physical Exam Musculoskeletal: Patient was laying comfortably in bed upon arrival. She is A+0x2. Right lower extremity: Positive EHL, tib ant, and plantarflexion/dorsiflexion. No skin disruption noted. Neurovascularly intact. Leg appears shortened and externally rotated. No erythema or ecchymosis evident. Capillary refill <2 seconds. Results & Data ([facility]) Vital Signs (Past 12 Hours) Vital Signs Temp Pulse Resp BP Pulse Ox 11/10/19 07:05 36.5 C 90 18 125/74 100 11/10/19 03:31 37.4 C 98 H 20 126/72 98 11/09/19 23:05 37.7 C H 99 H 16 137/81 100 11/09/19 21:00 103 H 18 137/81 96 PG Care Time/CCT Total # of Minutes Spent Total Time Spent with Patient: Total time spent is greater than 50% in coordination of care (as documented) at patient's floor/unit and/or counseling patient: Coding Level of Care Code 32110 Inpt Consult Level 1 Diagnoses Displaced intertrochanteric fracture of right femur S72.141A
[2019-11-10] MEDS ORDERED: FLUVOXAMINE MALEATE 50 MG TAB PO SCH (09:00)
[2019-11-10] MEDS: FLUVOXAMINE MALEATE 50 MG TAB PO SCH ×2 (09:38→22:45)
[2019-11-10] MEDS: OLANZapine 5 MG TABLET PO SCH (09:38)
[2019-11-10] MEDS: clonazePAM 0.5 MG TAB PO SCH ×2 (09:38→23:00)
[2019-11-10] MEDS: cefTRIAXone SODIUM 1,000 MG in DEXTROSE 5% 50 ML IV SCH (14:52)
[2019-11-10] MEDS: LACTATED RINGER'S 1,000 ML IV SCH (15:30)
--- NOTE | 2019-11-10 16:34 | Hospitalist Progress Note ---
Date of Service November 10, 2019 Assessment & Plan (1) Fall: (2) Displaced intertrochanteric fracture of right femur: This is an 79-year-old female with significant past medical history of COPD, history of tobacco abuse, PAD with history of stent to RLE, history of right DVT, vascular dementia with behaviors, depression, history of breast, urethral and bladder cancer who presents to ED after suffering a fall at school which facility prior to arrival. R femur xray: IMPRESSION: Comminuted and angulated/displaced right intertrochanteric femoral fracture. CT Head/Neck no acute finding Patient is scheduled for right hip ORIF today Sinus tachycardia: Possible secondary to dehydration Continue IV fluids Probable UTI: UA positive Urine culture ordered, will follow result Continue empirically with IV Rocephin (3) COPD (chronic obstructive pulmonary disease): no acute exac monitor (4) PAD (peripheral artery disease): hx of stent to RLE pt is not on asa/statin pulses intact distally (5) Dementia: with behaviors issues, gets agitated easily continue zyprexa, depakote, fluvoxamine recommend frequent re orientation pt likely to experience delirium (6) DVT prophylaxis: Patient will need pharmacological DVT prophylaxis, subcu heparin. Postsurgery, will defer to orthopedics Follow up: PCP Dr. Ordonez/Kirsten Barrientos PA-C at [facility] Patient's daughter updated at bedside Admission and Anticipated Discharge Date Admission Date: November 09, 2019 Subjective Patient seen at bedside, has advanced dementia and weak, pulling at oxygen mask Patient's daughter present Patient is scheduled to have right hip surgery today Vitals been stable so far, no fever or chills Intermittent tachycardia noted-improved after IV hydration Review of Systems Review of Systems: Unobtainable due to cognitive status (Advanced dementia) Physical Exam Constitutional: WD/WN, vitals as above + ill appearing and + thin; no acute distress Eyes: + anicteric sclerae ENMT: external ear and nose normal, oropharynx normal Neck: trachea midline, no thyromegaly Respiratory: normal respiratory effort; no respiratory distress and no cough Auscultation: no wheezes Cardiovascular: RRR, no murmur, no edema Gastrointestinal (Abdomen): Percussion/Palpation: abdomen soft; abdomen nontender Musculoskeletal: Status post right hip fracture, minimal movement in affected side Neurologic: Difficult to assess, secondary to advanced dementia, patient moves all extremities, unable to follow any instructions Psychiatric: Wakes up to voice, not oriented to time place person Results & Data Results & Data ([facility]) Vital Signs (Past 12 Hours) Vital Signs Temp Pulse Resp BP Pulse Ox Pulse Ox 11/10/19 14:47 36.2 C L 104 H 16 120/60 98 11/10/19 08:00 99 11/10/19 07:05 36.5 C 90 18 125/74 100 (1) Dementia Dementia behavioral disturbance: with behavioral disturbance Dementia type: unspecified type Qualified Code(s): F03.91 - Unspecified dementia with behavioral disturbance (2) Fall Encounter type: initial encounter Qualified Code(s): W19.XXXA - Unspecified fall, initial encounter
[2019-11-10] MEDS ORDERED: PROPOFOL IV EMULSION 10 MG/ML 20 ML VIAL IV ONE (17:28)
[2019-11-10] MEDS ORDERED: ONDANSETRON INJ 2 MG/ML 2 ML VIAL ONE (17:28)
[2019-11-10] MEDS ORDERED: LIDOCAINE HCL 2% 2 ML VIAL/AMP(20MG/ML) INFIL ONE (17:28)
[2019-11-10] MEDS ORDERED: fentaNYL citrate 100 MCG/2 ML VIAL ONE (17:29)
[2019-11-10] MEDS ORDERED: BUPIVACAINE 0.5 % 5 MG/1 ML MPF 30ML VIAL ONE (18:02)
[2019-11-10] MEDS ORDERED: EPINEPHrine INJ 1 MG/ML AMP ONE (18:02)
[2019-11-10] MEDS ORDERED: ATROPINE SULFATE 0.1 MG/ML 10ML SYR IV PRN (18:10)
[2019-11-10] MEDS ORDERED: ePHEDrine sulfate 50 MG/ML AMP IV PRN (18:10)
[2019-11-10] MEDS ORDERED: ONDANSETRON INJ 2 MG/ML 2 ML VIAL IV PRN (18:10)
[2019-11-10] MEDS ORDERED: BUPIVACAINE 0.5 % 5 MG/1 ML PF 10ML VIAL ONE (18:19)
--- NOTE | 2019-11-10 20:54 | Fluoroscopy Report ---
FL femur RT 2V CLINICAL HISTORY: RIGHT TROCH COMPARISON STUDY: Pelvis and right hip radiographs November 09, 2019. FLUOROSCOPY TIME: 2 minutes and 12 seconds. FLUOROSCOPIC IMAGES: 4 FINDINGS: Fluoroscopy was provided for internal fixation of the intertrochanteric fracture of the rig ht femur with trochanteric nail. Hardware is intact. Fracture alignment has markedly improved and is near anatomic. There are no unexpected radiopaque foreign bodies. There is a distal screw. IMPRESSION: Fluoroscopy provided for internal fixation of the intertrochanteric fracture of the righ t femur. ACT 112: Negative or not required by law. Electronically signed by: Jude Portillo M.D. 11/10/2019 8:53 PM
--- NOTE | 2019-11-10 20:57 | Post Operative Brief Note ---
PG Immediate Post Op with CF Date of Surgery November 10, 2019 Pre & Post Diagnosis Operation Date: 11/10/19 07:00 Pre-Op Diagnosis: RIGHT INTERTROCHANTERIC FEMUR FRACTURE Post-Op Diagnosis: RIGHT INTERTROCHANTERIC FEMUR FRACTURE I identified the patient and participated in the time-out.: Yes Procedure Operation Date: 11/10/19 07:00 Actual Procedures p Right Troch Nail(Right) - [place] Surgeon [place] Counterintelligence Agent Jarrell Cruz PA-C Estimated Blood Loss 250 Findings Consistent with Post-Op Diagnosis
[2019-11-10] MEDS ORDERED: NALOXONE HCL 0.4 MG/1 ML VIAL/CARP IV PRN (21:05)
--- NOTE | 2019-11-10 21:05 | Operative Report ---
PG Post Operative Report Pre & Post Diagnosis Operation Date: 11/10/19 07:00 Pre-Op Diagnosis: RIGHT INTERTROCHANTERIC FEMUR FRACTURE Post-Op Diagnosis: RIGHT INTERTROCHANTERIC FEMUR FRACTURE I identified the patient and participated in the time-out.: Yes Procedure Operation Date: 11/10/19 07:00 Actual Procedures p Right Troch Nail(Right) - [place] Surgeon [place] District Attorney Jarrell Cruz PA-C Estimated Blood Loss 250 Findings See Below Comminuted peritrochanteric fracture with a trochanteric split consisting of stabilized with a long trochanteric fixation nail 11 mm / 130 degree titanium cannulated trochanteric fixation nail of 400 mm length, 11 mm titanium helical blade of 105 mm length, and 5 mm x 48 mm interlocking screw. Specimens none Anesthesia Type MAC Spinal Regional Complications none Disposition Accompanied Patient To Recovery: No Disposition: Recovery Room Indications 79-year-old female with multiple medical problems but most significantly jordyn ia sustained a fall resulting in a right peritrochanteric fracture, which was recommended for operative fixation. We reviewed the risks and benefits of surgery in detail with her power of trademark attorney, Linda Perez, and informed consent was obtained. Description of Procedure On the day of surgery should be was greeted in the preoperative holding area and the informed consent was reviewed and confirmed. The surgical site was then identified by the patient and signed by myself. The patient was taken to the operating placed by the OR table and anesthesia was induced. The patient is then positioned on the fracture table. All clive prominences were well padded. The operative foot was placed in the fracture boot with abundant padding. The well leg was secured. We then positioned the lower extremities in a scissor fashion with a non-op leg flexed down to allow visualization with fluoroscopy which was confirmed before we prepped and draped. Surgical timeout was called and verified by all present. Antibiotics were infused, and equipment was available and functional. The procedure was initiated with a closed reduction maneuvers. Gentle in-line traction pulled the fracture out to length. The limb was then internally rotated to reduce the proximal femur. Flexion and adduction were used to adjust the reduction and allow access to the greater trochanter. We had adequate reduction prior to prepping and draping. The leg was then prepped and draped in usual sterile fashion. Surgical timeout was reconfirmed. We initiated the surgical internal fixation portion with finding the start point with the tip of the greater trochanter. Fluoroscopic guidance was used and a small poke hole was established. The start point was co nfirmed on fluoroscopy in AP and lateral planes and the pin was advanced using a mallet. An incision was made about the pin to allow access for the reamers. The pin was then advanced past the lesser trochanter, and its position was confirmed using AP and lateral fluoroscopy. Using the protective sleeve, the opening reamer was advanced under power with fluoroscopic guidance over the guidepin. It was advanced slowly and we did ream out some lateral bone of the trochanter. The reduction pain was then advanced down the distal femur to the level of the superior pole of the patella. Measurement was taken from the tip of the trochanter down to the end of the guidewire, and the nail length was selected. We then began reaming. We advanced the reaming to a 12.5mm diameter for the proposed 11 mm diameter nail, which provided minimal chatter. An 11 mm nail was loaded onto the jig and advanced manually down the canal, while ensuring maintenance of the reduction on fluoroscopy. We then tapped it down into place until we achieve the good position for our cephalo-medullary screw. The cannula was placed on the jig to allow positioning of the cephalo-medullary screw. The skin incision was made in the appropriate spot. The jig cannulas were then placed against the lateral cortex. The nail jig was then used in compression mode using the cannula system to push the lateral cortex of the femur into a better reduced position. In addition, I used a large bone hook around the calcar to pull the head neck piece back into better alignment. The cephalo-medullary screw guidepin was advanced towards the femoral head. The center-center position was confirmed on fluoroscopy in AP and lateral planes. The length of the screw was measured off the guide. The helical blade screw was then opened on the back table and prepared on the screwdriver. The lateral cortical opening drill, followed by the triple drill reamer for the helical blade was advanced under fluoroscopic guidance. The helical blade was advanced over the guidepin to appropriate position. The helical blade was locked in rotation and then the traction was taken off. Fluoroscopy confirmed maintenance of reduction and adequate position of the implant. Attention was then directed distally to perform the interlock screws in using perfect nondalton technique. 1 interlock screw was placed with a 5 mm diameter. The length was measured using a depth gauge, with fluoroscopic guidance. This completed the fixation. The wounds were then thoroughly irrigated with bulb syringe and normal saline. The deep fascial layer was approximated with 0 Vicryl suture. The dermal layer was approximated using 2-0 Vicryl suture. The final skin closure was completed with marylu. Wounds were dressed with sterile Xeroform, sterile gauze, and foam tape over ABDs. The patient tolerated procedure well, awoke from anesthesia without complication, was extubated in the operating room, and transferred to the PACU in stable condition. Disposition: The patient be weightbearing as tolerated. I recommended routine DVT prophylaxis consisting of low molecular weight heparin while an inpatient and transition to oral aspirin, if tolerable, as the patient transitions out of the hospital. DVT prophylaxis should last 6 weeks. 24 hours of antibiotic prophylaxis should be continued. Physician community assistant attestation: Jarrell Cruz PA-C was present and scrubbed for the duration of the case. He was essential to prepping/draping, patient positioning, retraction, and assistance with wound closure. I attest to the content of the Intraoperative Record and any orders documented therein. Any exceptions are noted below.
[2019-11-10] MEDS ORDERED: ACETAMINOPHEN 500 MG TAB PO PRN (21:10)
[2019-11-10] MEDS ORDERED: HYDROmorphone INJ 0.5 MG/0.5 ML SYR IV PRN ×2 (21:10)
[2019-11-10] MEDS ORDERED: OXYCODONE HCL IR 5 MG TAB (IMMEDIATE RELEASE) PO PRN ×2 (21:10)
--- NOTE | 2019-11-10 21:38 | Anesthesiology Progress Note ---
Date of Service November 10, 2019 Anesthesia Post Procedure Vital Signs Vital Signs: Temp Pulse Pulse Resp BP Pulse Ox Pulse Ox 11/10/19 21:30 36.4 C L 96 H 14 121/79 100 11/10/19 21:20 98 H 14 130/80 100 11/10/19 21:10 98 H 21 158/94 H 100 11/10/19 21:02 36.4 C L 101 H 18 148/72 H 100 11/10/19 17:48 36.9 C 101 H 20 134/66 99 11/10/19 14:47 36.2 C L 104 H 16 120/60 98 11/10/19 08:00 99 11/10/19 07:05 36.5 C 90 18 125/74 100 11/10/19 03:31 37.4 C 98 H 20 126/72 98 11/09/19 23:05 37.7 C H 99 H 16 137/81 100 Transfer of Care Handoff Completed per policy Notes Mental Status: alert / awake / arousable Patient Amnestic to Procedure: Yes Nausea / Vomiting: adequately controlled Pain: adequately controlled Airway Patency, RR, SpO2: stable & adequate BP & HR: stable & adequate Hydration State: stable & adequate Neuraxial Anesthesia: was administered and sensory block is resolving Anesthetic Complications: no major complications apparent
[2019-11-10] MEDS ORDERED: CEFAZOLIN 2000MG 2,000 MG/15 ML SYR IV ONE (22:00)
[2019-11-10] MEDS: DOCUSATE SODIUM/SENNA 50/8.6MG TAB PO SCH (22:46)
[2019-11-10] MEDS: OLANZapine 10 MG TAB PO SCH (22:48)
[2019-11-11] MEDS: MoRPHine SULFATE 2 MG/ML CARP IV PRN (00:11)
[2019-11-11] MEDS: LACTATED RINGER'S 1,000 ML IV SCH (01:16)
[2019-11-11] MEDS: DIVALPROEX EXTENDED RELEASE 250 MG TABCR PO SCH ×2 (01:17→14:09)
[2019-11-11] MEDS ORDERED: METOPROLOL TARTRATE 25 MG TAB PO STA ×2 (04:10→04:12)
[2019-11-11 05:43] LABS: Basophils # (auto) 0.01 K/uL (0-0.2); Basophils % (auto) 0.1 %; Hematocrit (blood only) 26.9 % (37-47); Hemoglobin 8.4 g/dL (12.0-16.0); Immature Granulocytes # (auto) 0.02 K/uL (0.00-0.02); Immature Granulocytes % (auto) 0.2 %; Lymphocytes # (auto) 0.61 K/uL (1.2-3.4); Mean Corpuscular Hgb Conc 31.2 g/dL (32-36); Mean Corpuscular Volume 96.1 fL (80-100); Mean Platelet Volume 10.7 fL (7.4-10.4); Neutrophils % (auto) 76.7 %; Platelet Count 151 K/uL (130-400); RDW Coefficient of Variation 15.7 % (11.5-14.5); RDW Standard Deviation 55.8 fL (36.4-46.3); White Blood Count 8.74 K/uL (4.8-10.8)
[2019-11-11] MEDS: ENOXAPARIN INJ 40 MG/0.4 ML SYR SQ SCH (06:19)
[2019-11-11 06:25] LABS: Calcium 8.9 mg/dl (8.5-10.1); Creatinine Clr Calc Pharmacy 52.3 ml/min; Est GFR (African American) 92.6; Est GFR (Non-African American) 79.9
--- NOTE | 2019-11-11 06:58 | XRay Report ---
XR femur RT 2V routine HISTORY: 79 years-old Female Post-Operative implant position ORIF of the right femur COMPARISON: Pelvis and right hip radiographs 11/09/2019 TECHNIQUE: 2 views the right femur FINDINGS: Status post placement of an intratrochanteric nail with elongated medullary janusz and distal lateral ap proach cannulated screw fixating the previously noted acute comminuted intertrochanteric fracture. Th ere is improved near anatomic alignment. There is minimal persistent displacement of the medial fract ure of approximately 5 mm. Lateral skin marylu are noted along with expected postsurgical soft tissu e swelling and deep tissue air. Mild to moderate right hip osteoarthritis. Osteoarthritis of the knee with nonspecific sclerosis of the medial proximal tibia. There is a small right knee joint effusion. Demineralized appearance of the bones. IMPRESSION: Improved alignment of the acute intertrochanteric fracture of the right femur status post placement of an intratrochanteric nail with medullary janusz. ACT 112: Negative or not required by law. The above report was generated using voice recognition software. It may contain grammatical, syntax o r spelling errors. Electronically signed by: Brice Lange M.D. 11/11/2019 6:57 AM
[2019-11-11] MEDS ORDERED: SODIUM CHLORIDE 0.9% 250 ML IV PRN (07:54)
--- NOTE | 2019-11-11 07:58 | Communication Note ---
Date of Service: November 11, 2019 AM LABS REVIEWED : acute blood loss anemia : due to right hip fracture , puneet /post op blood loss Hb on admission 12.4 dropped to 9-> 8.4 today associated with sinus tachycardia ordered for 1 unit of PRBC to be transfused today repeat H&H in evening may need repeat transfusion if pt remains tachycardic , Hb < 9 after 1st unit of PRBC tx Carola Parra MD
--- NOTE | 2019-11-11 08:43 | Electrocardiogram Report ---
Test Reason : Blood Pressure : / mmHG Vent. Rate : 111 BPM Atrial Rate : 111 BPM P-R Int : 138 ms QRS Dur : 076 ms QT Int : 310 ms P-R-T Axes : 060 057 -23 degrees QTc Int : 421 ms Sinus tachycardia with Premature atrial complexes Old Septal infarct Left ventricular hypertrophy with repolarization abnormality Abnormal ECG When compared with ECG of 09-NOV-2019 09:51, Premature atrial complexes are now Present Criteria for Septal infarct is now Present Confirmed by Homero Schneider ([id number]) on 11/11/2019 8:43:10 AM [facility] Confirmed By:Homero Schneider
[2019-11-11] MEDS: clonazePAM 0.5 MG TAB PO SCH ×2 (09:18→21:28)
[2019-11-11] MEDS: INSULIN ASPART 100 UNITS/ML 3 ML PEN SC SCH ×4 (09:20→21:22)
[2019-11-11] MEDS: OLANZapine 5 MG TABLET PO SCH ×2 (09:21→09:25)
[2019-11-11] MEDS: FLUVOXAMINE MALEATE 50 MG TAB PO SCH ×3 (09:22→21:28)
--- NOTE | 2019-11-11 12:37 | Communication Note ---
Date of Service: November 11, 2019 possible osteoporosis related pathologic fracture R hip
[2019-11-11] MEDS: ACETAMINOPHEN 1,000 MG/100 ML VIAL IV SCH ×2 (14:11→21:26)
[2019-11-11] MEDS: D5W AND 1/2NSS 1,000 ML IV SCH (16:44)
--- NOTE | 2019-11-11 18:20 | Hospitalist Progress Note ---
Date of Service November 11, 2019 Assessment & Plan (1) Fall: (2) Displaced intertrochanteric fracture of right femur: This is an 79-year-old female with significant past medical history of COPD, history of tobacco abuse, PAD with history of stent to RLE, history of right DVT, vascular dementia with behaviors, depression, history of breast, urethral and bladder cancer who presents to ED after suffering a fall at school which facility prior to arrival. possible osteoporosis related pathologic fracture R hip X-ray of femur shows radiolucent bone suggestive of advanced osteoporosis Comminuted and angulated/displaced right intertrochanteric femoral fracture. CT Head/Neck no acute finding This post right hip surgery, tolerated well Hold narcotic pain medications as patient found to be very sedated. Acute blood loss anemia: Secondary to postop status Ordered for 1 unit of blood transfusion Probable UTI: UA positive Urine culture ordered, will follow result Continue empirically with IV Rocephin (3) COPD (chronic obstructive pulmonary disease): no acute exac monitor (4) PAD (peripheral artery disease): hx of stent to RLE pt is not on asa/statin pulses intact distally (5) Dementia: with behaviors issues, gets agitated easily continue zyprexa, depakote, fluvoxamine recommend frequent re orientation pt likely to experience delirium (6) DVT prophylaxis: Patient will need pharmacological DVT prophylaxis, subcu heparin. Postsurgery, will defer to orthopedics Follow up: PCP Dr. Ordonez/Kirsten Barrientos PA-C at [facility] Admission and Anticipated Discharge Date Admission Date: November 09, 2019 Subjective Patient found to be very sedated this morning, received multiple pain medication last night as patient was very agitated/combative All narcotic pain medication discontinued Change IV Tylenol schedule Not give any p.o. meds or food until patient is completely awake and alert Ordered for IV fluids as patient urine output noted to be low Review of Systems Review of Systems: Unobtainable due to reduced consciousness Physical Exam Constitutional: WD/WN, vitals as above + ill appearing and + thin; no acute distress Eyes: + anicteric sclerae ENMT: external ear and nose normal, oropharynx normal Neck: trachea midline, no thyromegaly Respiratory: normal respiratory effort; no respiratory distress and no cough Auscultation: no wheezes Cardiovascular: RRR, no murmur, no edema Gastrointestinal (Abdomen): Percussion/Palpation: abdomen soft; abdomen nontender Results & Data Results & Data ([facility]) Vital Signs (Past 12 Hours) Vital Signs Temp Pulse Pulse Pulse Resp BP BP 11/11/19 16:50 11/11/19 15:31 37.2 C 79 17 103/58 L 11/11/19 12:02 36.6 C 94 H 16 145/74 H 11/11/19 11:30 36.6 C 90 16 144/74 H 11/11/19 10:30 36.6 C 90 16 132/65 11/11/19 10:00 36.7 C 94 H 14 129/78 11/11/19 09:30 36.3 C L 95 H 16 149/77 H 11/11/19 09:15 36.5 C 94 H 16 131/75 11/11/19 08:52 36.6 C 93 H 18 132/72 11/11/19 07:11 36.5 C 95 H 17 124/71 Pulse Ox Pulse Ox 11/11/19 16:50 98 11/11/19 15:31 98 11/11/19 12:02 95 11/11/19 11:30 95 11/11/19 10:30 96 11/11/19 10:00 97 11/11/19 09:30 96 11/11/19 09:15 96 11/11/19 08:52 11/11/19 07:11 97 (1) Fall Encounter type: initial encounter Qualified Code(s): W19.XXXA - Unspecified fall, initial encounter (2) Dementia Dementia behavioral disturbance: with behavioral disturbance Dementia type: unspecified type Qualified Code(s): F03.91 - Unspecified dementia with behavioral disturbance
[2019-11-11 18:30] LABS: Hematocrit (blood only) 28.1 % (37-47)
--- NOTE | 2019-11-11 19:03 | Orthopedic Progress Note ---
Date of Service November 11, 2019 Assessment & Plan (1) Displaced intertrochanteric fracture of right femur: No complications on POD1 Expected acute blood loss from large peritrochanteric fracture and surgery. Expect jaiden 48-72 hours WBAT, ROMAT DVT ppx x 6 weeks Dispo: no further inpatient ortho needs. Will need wound monitoring. Dressings can be changed POD#3 and then daily until no drainage in 24 hours. [place] removed and x-ray in 3 weeks. Will follow while inpt. Admission and Anticipated Discharge Date Admission Date: November 09, 2019 Subjective Sleeping on arrival. Did not wake with exhibition designer performing blood draw. Review of Systems Review of Systems: Unobtainable due to cognitive status Physical Exam Physical Exam: Sleeping peacefully, no distress, equal chest rise, not easily arousable. RLE: dressing c/d/i. Leg lengths equal. 2+dp pulse. Results & Data ([facility]) Vital Signs (Past 12 Hours) Vital Signs Temp Pulse Pulse Pulse Resp BP BP 11/11/19 16:50 11/11/19 15:31 37.2 C 79 17 103/58 L 11/11/19 12:02 36.6 C 94 H 16 145/74 H 11/11/19 11:30 36.6 C 90 16 144/74 H 11/11/19 10:30 36.6 C 90 16 132/65 11/11/19 10:00 36.7 C 94 H 14 129/78 11/11/19 09:30 36.3 C L 95 H 16 149/77 H 11/11/19 09:15 36.5 C 94 H 16 131/75 11/11/19 08:52 36.6 C 93 H 18 132/72 11/11/19 07:11 36.5 C 95 H 17 124/71 Pulse Ox Pulse Ox 11/11/19 16:50 98 11/11/19 15:31 98 11/11/19 12:02 95 11/11/19 11:30 95 11/11/19 10:30 96 11/11/19 10:00 97 11/11/19 09:30 96 11/11/19 09:15 96 11/11/19 08:52 11/11/19 07:11 97 R hip xray: no postop complications PG Care Time/CCT Total # of Minutes Spent Total Time Spent with Patient: Total time spent is greater than 50% in coordina tion of care (as documented) at patient's floor/unit and/or counseling patient: Coding Level of Care Code None Diagnoses Displaced intertrochanteric fracture of right femur S72.141A
[2019-11-11] MEDS: OLANZapine 10 MG TAB PO SCH (21:28)
[2019-11-11] MEDS: SENNA 8.6 MG TAB PO SCH (21:28)
[2019-11-11] MEDS: DOCUSATE SODIUM/SENNA 50/8.6MG TAB PO SCH (21:28)
[2019-11-12] MEDS: DIVALPROEX EXTENDED RELEASE 250 MG TABCR PO SCH ×2 (01:21→13:55)
[2019-11-12] MEDS: D5W AND 1/2NSS 1,000 ML IV SCH ×3 (01:53→21:30)
[2019-11-12] MEDS: ACETAMINOPHEN 1,000 MG/100 ML VIAL IV SCH ×3 (05:47→20:20)
[2019-11-12] MEDS: ENOXAPARIN INJ 40 MG/0.4 ML SYR SQ SCH (05:48)
[2019-11-12 06:26] LABS: Hematocrit (blood only) 27.7 % (37-47); Hemoglobin 8.7 g/dL (12.0-16.0); Mean Corpuscular Hemoglobin 29.4 pg (25-34); Mean Corpuscular Hgb Conc 31.4 g/dL (32-36); Mean Corpuscular Volume 93.6 fL (80-100); Mean Platelet Volume 10.6 fL (7.4-10.4); Platelet Count 160 K/uL (130-400); RDW Coefficient of Variation 17.8 % (11.5-14.5); RDW Standard Deviation 60.8 fL (36.4-46.3); Red Blood Count 2.96 M/uL (4.2-5.4); White Blood Count 7.61 K/uL (4.8-10.8)
[2019-11-12 06:57] LABS: Calcium 8.6 mg/dl (8.5-10.1); Creatinine Clr Calc Pharmacy 71.4 ml/min; Est GFR (African American) 103.9; Est GFR (Non-African American) 89.6
[2019-11-12] MEDS: FLUVOXAMINE MALEATE 50 MG TAB PO SCH ×2 (09:01→20:20)
[2019-11-12] MEDS: OLANZapine 5 MG TABLET PO SCH (09:08)
[2019-11-12] MEDS: clonazePAM 0.5 MG TAB PO SCH ×2 (09:11→20:20)
[2019-11-12] MEDS: SENNA 8.6 MG TAB PO SCH ×2 (09:12→20:20)
[2019-11-12] MEDS: INSULIN ASPART 100 UNITS/ML 3 ML PEN SC SCH ×4 (09:19→20:21)
--- NOTE | 2019-11-12 11:14 | Hospitalist Progress Note ---
Date of Service November 12, 2019 Assessment & Plan (1) Fall: (2) Displaced intertrochanteric fracture of right femur: This is an 79-year-old female with significant past medical history of COPD, history of tobacco abuse, PAD with history of stent to RLE, history of right DVT, vascular dementia with behaviors, depression, history of breast, urethral and bladder cancer who presents to ED after suffering a fall at [facility] prior to arrival fall was unwitnessed possible osteoporosis related pathologic fracture R hip X-ray of femur shows radiolucent bone suggestive of advanced osteoporosis Comminuted and angulated/displaced right intertrochanteric femoral fracture. CT Head/Neck no acute finding status post right hip surgery, recovering well Hold narcotic pain medications as patient found to be very sedated. ordered scheduled Tylenol pain appears to be adequately controlled Acute blood loss anemia: Secondary to postop status s/p 1 unit of blood transfusion H&H remains stable Probable UTI: UA positive Urine culture ordered, will follow result Continue empirically with IV Rocephin (3) COPD (chronic obstructive pulmonary disease): no acute exac monitor (4) PAD (peripheral artery disease): hx of stent to RLE pt is not on asa/statin pulses intact distally (5) Dementia: with behaviors issues, gets agitated easily continue zyprexa, depakote, fluvoxamine avoid Narcotics , BDZ -likely can cause over sedation , reverse agitation recommend frequent re orientation pt likely to experience delirium (6) DVT prophylaxis: sub q lovenox Follow up: PCP Dr. Ordonez/Kirsten Barrientos PA-C at [facility] Disposition : return back to [facility] -possible thursday if remains stable Admission and Anticipated Discharge Date Admission Date: November 09, 2019 Subjective Awake and alert today refusing to take med confused , disoriented , pulls hand away if touched screaming " get out " pt did not receive dose of Zyprexa yesterday for sedation able to have breakfast and meds this AM unable to provide any subjective complain does not appear to be in pain or discomfort getting scheduled dose of Tylenol Narcotics pain meds kept on hold for excessive sedation noted yesterday Review of Systems Review of Systems: Unobtainable due to cognitive status (advanced demetia ,agitated ) Physical Exam Constitutional: WD/WN, vitals as above + ill appearing and + thin; no acute distress Eyes: + anicteric sclerae ENMT: external ear and nose normal, oropharynx normal Neck: trachea midline, no thyromegaly Respiratory: normal respiratory effort; no respiratory distress and no cough Auscultation: no wheezes Cardiovascular: RRR, no murmur, no edema Gastrointestinal (Abdomen): Percussion/Palpation: abdomen soft; abdomen nontender Results & Data Results & Data ([facility]) Vital Signs (Past 12 Hours) Vital Signs Temp Pulse Resp BP Pulse Ox Pulse Ox 11/12/19 07:46 36.9 C 85 16 111/57 L 90 11/12/19 03:05 18 91 11/11/19 23:50 96 (1) Fall Encounter type: initial encounter Qualified Code(s): W19.XXXA - Unspecified fall, initial encounter (2) Dementia Dementia behavioral disturbance: with behavioral disturbance Dementia type: unspecified type Qualified Code(s): F03.91 - Unspecified dementia with behavioral disturbance
[2019-11-12] MEDS: OLANZapine 10 MG TAB PO SCH (20:20)
[2019-11-12] MEDS: DOCUSATE SODIUM/SENNA 50/8.6MG TAB PO SCH (20:20)
[2019-11-12] MEDS ORDERED: OLANZapine 10 MG/2.1 ML SDV IM STA (20:50)
[2019-11-12] MEDS ORDERED: LORazepam 0.25 MG/0.5 ML VIAL IV ONE (21:15)
[2019-11-13] MEDS: DIVALPROEX EXTENDED RELEASE 250 MG TABCR PO SCH ×2 (01:30→13:48)
[2019-11-13] MEDS: D5W AND 1/2NSS 1,000 ML IV SCH ×2 (05:35→06:05)
[2019-11-13] MEDS: ACETAMINOPHEN 1,000 MG/100 ML VIAL IV SCH (05:36)
[2019-11-13] MEDS: ENOXAPARIN INJ 40 MG/0.4 ML SYR SQ SCH (05:36)
[2019-11-13 06:02] LABS: Hematocrit (blood only) 25.8 % (37-47); Hemoglobin 8.4 g/dL (12.0-16.0); Mean Corpuscular Hemoglobin 29.6 pg (25-34); Mean Corpuscular Hgb Conc 32.6 g/dL (32-36); Mean Corpuscular Volume 90.8 fL (80-100); Mean Platelet Volume 10.1 fL (7.4-10.4); Platelet Count 245 K/uL (130-400); RDW Standard Deviation 56.9 fL (36.4-46.3); Red Blood Count 2.84 M/uL (4.2-5.4); White Blood Count 8.97 K/uL (4.8-10.8)
[2019-11-13 06:46] LABS: Calcium 8.6 mg/dl (8.5-10.1); Creatinine Clr Calc Pharmacy 71.4 ml/min; Est GFR (African American) 103.9; Est GFR (Non-African American) 89.6; Potassium 3.3 mmol/L (3.5-5.1)
[2019-11-13] MEDS: OLANZapine 5 MG TABLET PO SCH (08:27)
[2019-11-13] MEDS: FLUVOXAMINE MALEATE 50 MG TAB PO SCH ×2 (08:28→21:07)
[2019-11-13] MEDS: SENNA 8.6 MG TAB PO SCH ×2 (08:28→21:07)
[2019-11-13] MEDS: clonazePAM 0.5 MG TAB PO SCH (08:30)
--- NOTE | 2019-11-13 09:29 | Orthopedic Progress Note ---
Date of Service November 13, 2019 Assessment & Plan (1) Status post-operative repair of hip fracture: No complications on POD3 Expected acute blood loss from large peritrochanteric fracture and surgery. Expect jaiden 48-72 hours WBAT, ROMAT DVT ppx x 6 weeks Dispo: no further inpatient ortho needs. Will need wound monitoring -consider keeping a dressing to protect it from agitation. If she continued pulls dressings off then let it open. Monitor closely. Dressings can be changed errol y until no drainage in 24 hours. [place] removed and x-ray in 2-3 weeks. Will follow while inpt. Admission and Anticipated Discharge Date Admission Date: November 09, 2019 Subjective Recurrent exam today, but disoriented and can provide no history Review of Systems Review of Systems: Unobtainable due to cognitive status Physical Exam Constitutional: well developed and well nourished; no acute distress and not intoxicated appearing ENMT: external ear and nose normal, oropharynx normal Respiratory: normal respiratory effort; no respiratory distress Cardiovascular: Extremities: normal capillary refill; no edema Skin: no rashes, warm and dry Psychiatric: Orientation: alert Eye Contact: + poor eye contact Results & Data ([facility]) Vital Signs (Past 12 Hours) Vital Signs Temp Pulse Resp BP Pulse Ox 11/12/19 23:08 37.4 C 96 H 16 132/62 91 Laboratory Tests 11/13/19 05:30 WBC 8.97 Hgb 8.4 L Hct 25.8 L Plt Count 245 D PG Care Time/CCT Total # of Minutes Spent Total Time Spent with Patient: Total time spent is greater than 50% in coordination of care (as documented) at patient's floor/unit and/or counseling patient: Coding Level of Care Code None Diagnoses Status post-operative repair of hip fracture Z98.890; Z87.81
[2019-11-13] MEDS: INSULIN ASPART 100 UNITS/ML 3 ML PEN SC SCH ×4 (10:02→21:07)
[2019-11-13] MEDS ORDERED: POTASSIUM CHLORIDE PWD 20 MEQ PACK PO ONE (11:24)
--- NOTE | 2019-11-13 12:28 | Hospitalist Progress Note ---
Date of Service November 13, 2019 Assessment & Plan (1) Diastolic CHF, acute on chronic: pt developed volume over load received PRBC transfusion for acute blood loss anemia IV fluid resuscitation for low urine output/dehydration noted to have significantly vol overloaded portable chest Xray ordered D/c iv fluids ordered for IV Lasix monitor vol status cont Martins catheter for accurate measurement of input and output (2) Fall: (3) Displaced intertrochanteric fracture of right femur: This is an 79-year-old female with significant past medical history of COPD, history of tobacco abuse, PAD with history of stent to RLE, history of right DVT, vascular dementia with behaviors, depression, history of breast, urethral and bladder cancer who presents to ED after suffering a fall at [facility] prior to arrival fall was unwitnessed possible osteoporosis related pathologic fracture R hip X-ray of femur shows radiolucent bone suggestive of advanced osteoporosis Comminuted and angulated/displaced right intertrochanteric femoral fracture. CT Head/Neck no acute finding status post right hip surgery, recovering well will change to PO PRn Tylenol pain appears to be adequately controlled appreciate input from Orthopedics : weight bearing as tolerated /range of motion as tolerated DVT prophylaxis -Aspirin 81 mg twice Daily for 6 weeks Follow up with Orthopedics follow up in 2-3 weeks -for staple removal , and repeat xray of hip Acute blood loss anemia: Secondary to postop status s/p 1 unit of blood transfusion H&H remains stable Probable UTI: urine culture negative IV Abx D/iglesia (4) COPD (chronic obstructive pulmonary disease): no acute exac monitor (5) PAD (peripheral artery disease): hx of stent to RLE pt is not on asa/statin pulses intact distally (6) Dementia: with behaviors issues, gets agitated easily continue zyprexa, depakote, fluvoxamine avoid Narcotics , BDZ -likely can cause over sedation , reverse agitation recommend frequent re orientation pt likely to experience delirium (7) DVT prophylaxis: sub q lovenox Follow up: PCP Dr. Ordonez/Kirsten Barrientos PA-C at [facility] Disposition : accepted at [facility] for skilled rehab , transfer for SNF next 24-48 hrs when medically stable Daughter Linda updated over phone Admission and Anticipated Discharge Date Admission Date: November 09, 2019 Subjective pt noted to experience shortness of breath /moist cough /gurgling sound this AM evaluated at bedside , awake , sitting up , remains confused IV fluid discontinued Physical Exam Constitutional: WD/WN, vitals as above + ill appearing and + thin; no acute distress Eyes: + anicteric sclerae ENMT: external ear and nose normal, oropharynx normal Neck: trachea midline, no thyromegaly Respiratory: + cough Auscultation: + crackles and + rales; no wheezes Cardiovascular: RRR, no murmur, no edema Gastrointestinal (Abdomen): Percussion/Palpation: abdomen soft; abdomen nontender Results & Data Results & Data ([facility]) Vital Signs (Past 12 Hours) Vital Signs Temp Pulse Resp BP Pulse Ox 11/13/19 09:57 36.9 C 96 H 18 131/61 90 (1) Dementia Dementia behavioral disturbance: with behavioral disturbance Dementia type: unspecified type Qualified Code(s): F03.91 - Unspecified dementia with behavioral disturbance (2) Fall Encounter type: initial encounter Qualified Code(s): W19.XXXA - Unspecified fall, initial encounter
[2019-11-13] MEDS ORDERED: FUROSEMIDE 40 MG in SYRINGE 0 ML IV ONE (12:30)
[2019-11-13] MEDS ORDERED: ACETAMINOPHEN 325 MG TAB PO PRN (12:45)
--- NOTE | 2019-11-13 13:12 | XRay Report ---
XR chest 1V portable HISTORY: Shortness of breath. Cough. COMPARISON: Chest 11/09/2019. FINDINGS: Mild diffuse interstitial thickening is likely chronic. The heart is normal in size. No ple ural effusions. No pneumothorax. A few patchy densities at the left lung base. No evidence for pulmon kris edema. IMPRESSION: Small patchy densities at the left lung base. This may represent atelectasis or pneumonia. ACT 112: Negative or not required by law. Electronically signed by: Francisco Zavaleta M.D. 11/13/2019 1:11 PM
[2019-11-13] MEDS ORDERED: POTASSIUM CHLORIDE / WTR 10 MEQ/100 ML PLCT IV ONE (14:18)
--- NOTE | 2019-11-13 14:25 | Communication Note ---
Date of Service: November 13, 2019 Attending addendum Portable chest x-ray reviewed: Possible left lower endowed infiltrate, atelectasis versus pneumonia We will start on a p.o. Augmentin Concern for aspiration, given advanced dementia, altered mental status yesterday secondary to sedation Aspiration precaution Speech evaluation Soft bite-size diet, nectar thick liquid (patient noted to choke on coffee) Carola Parra MD
[2019-11-13] MEDS: POTASSIUM CHLORIDE / WTR 10 MEQ/100 ML PLCT IV SCH ×2 (15:26→16:26)
--- NOTE | 2019-11-13 16:22 | Communication Note ---
Date of Service: November 13, 2019 Patient remains agitated , combative refused all meals , cursing at nursing staff daughter was present , was agitated to her as well . refused PO meds appears to be very dehydrated , after talking to her , she was agreeable to drink coffee pushed away cup when brought near to her screaming " get out " pt is on PO Klonopin , Zyprexa , Depakote -for behavior issues -with advanced dementia changed to SL Ativan , ODT Zyprexa, Depakote Sprinkles over all prognosis remains very poor advanced dementia , refusing care , refusing to eat will discuss with Daughter tomorrow regarding option for palliative care /hospice pt is DNR/DNI Carola Parra MD
[2019-11-13] MEDS: AMOXICILLIN/CLAVULANATE SUSP 250MG/5ML 75ML BOTTLE PO SCH ×2 (16:28→21:07)
[2019-11-13] MEDS: DIVALPROEX SODIUM SPRINKLE 125 MG CAP PO SCH (16:29)
[2019-11-13] MEDS: LORazepam 1 MG TAB SL SCH (21:06)
[2019-11-13] MEDS: DOCUSATE SODIUM/SENNA 50/8.6MG TAB PO SCH (21:07)
[2019-11-13] MEDS: OLANZAPINE ZYDIS 10 MG ORALLY DIS. TAB PO SCH (21:07)
[2019-11-14] MEDS: ENOXAPARIN INJ 40 MG/0.4 ML SYR SQ SCH (05:51)
[2019-11-14] MEDS: INSULIN ASPART 100 UNITS/ML 3 ML PEN SC SCH ×4 (09:00→21:45)
[2019-11-14] MEDS: LORazepam 1 MG TAB SL SCH ×2 (10:10→21:44)
[2019-11-14] MEDS: OLANZAPINE ZYDIS 5 MG ORALLY DIS. TAB PO SCH (10:10)
[2019-11-14] MEDS: SENNA 8.6 MG TAB PO SCH ×2 (10:10→21:44)
[2019-11-14] MEDS: AMOXICILLIN/CLAVULANATE SUSP 250MG/5ML 75ML BOTTLE PO SCH ×3 (10:10→21:44)
[2019-11-14] MEDS: FLUVOXAMINE MALEATE 50 MG TAB PO SCH ×2 (10:10→21:44)
[2019-11-14] MEDS: DIVALPROEX SODIUM SPRINKLE 125 MG CAP PO SCH ×2 (10:11→21:44)
--- NOTE | 2019-11-14 17:45 | Hospitalist Progress Note ---
Date of Service November 14, 2019 Assessment & Plan (1) Diastolic CHF, acute on chronic: vol status improved to baseline after IV lasix no cough , no SOB today pt is pleasant and clam today agreeable to have meals D/c Martins plan to dc to rehab tomorrow (2) Fall: (3) Displaced intertrochanteric fracture of right femur: This is an 79-year-old female with significant past medical history of COPD, history of tobacco abuse, PAD with history of stent to RLE, history of right DVT, vascular dementia with behaviors, depression, history of breast, urethral and bladder cancer who presents to ED after suffering a fall at [facility] prior to arrival fall was unwitnessed possible osteoporosis related pathologic fracture R hip X-ray of femur shows radiolucent bone suggestive of advanced osteoporosis Comminuted and angulated/displaced right intertrochanteric femoral fracture. CT Head/Neck no acute finding status post right hip surgery, recovering well requiring PRN tylenol only pain appears to be adequately controlled appreciate input from Orthopedics : weight bearing as tolerated /range of motion as tolerated DVT prophylaxis -Aspirin 81 mg twice Daily for 6 weeks Follow up with Orthopedics follow up in 2-3 weeks -for staple removal , and repeat xray of hip Acute blood loss anemia: Secondary to postop status s/p 1 unit of blood transfusion H&H remains stable ASPIRATION PNEUMONIA : was very sedated 1 days back , later was comabtive agitated noted to cough while drinking Xray left lower lobe pneumonia -new since admission image PO Augmentin -total 5 days aspiration precaution Speech eval requested -appreciate input (4) COPD (chronic obstructive pulmonary disease): no acute exac cough , SOBimproved (5) PAD (peripheral artery disease): (6) Dementia: with behaviors issues, gets agitated easily continue zyprexa changed to ODT , depakote changed to sprikle for easy adminstration as pt refused meals /meds , fluvoxamine avoid Narcotics , BDZ -likely can cause over sedation , reverse agitation recommend frequent re orientation pt likely to experience delirium (7) DVT prophylaxis: sub q lovenox Follow up: PCP Dr. Ordonez/Kirsten Barrientos PA-C at [facility] Disposition : accepted at [facility] for skilled rehab , transfer for SNF tomorrow Daughter Linda updated at bedside aware of poor prognosis with advance dementia pt will go to [facility] for rehab in future with clinical decline daughter will consider transition to Hospice Admission and Anticipated Discharge Date Admission Date: November 09, 2019 Subjective awake and alert pleasant and co-operative today smiling finished breakfast when asked about right hip pain says" no pain " daughter present at bedside pt has improved to her approx baseline plan to transfer to SNF /[facility] tomorrow Physical Exam Constitutional: WD/WN, vitals as above no acute distress Eyes: + anicteric sclerae ENMT: external ear and nose normal, oropharynx normal Neck: trachea midline, no thyromegaly Cardiovascular: RRR, no murmur, no edema Gastrointestinal (Abdomen): Percussion/Palpation: abdomen soft; abdomen nontender Psychiatric: Orientation: alert and oriented to person; + not oriented x 3 Results & Data Results & Data ([facility]) Vital Signs (Past 12 Hours) Vital Signs Temp Pulse Resp BP BP Pulse Ox 11/14/19 15:01 37.4 C 99 H 17 145/67 H 93 11/14/19 08:21 89 148/71 H 11/14/19 07:46 36.7 C 108 H 16 90/66 L 92 (1) Dementia Dementia behavioral disturbance: with behavioral disturbance Dementia type: unspecified type Qualified Code(s): F03.91 - Unspecified dementia with behavioral disturbance (2) Fall Encounter type: initial encounter Qualified Code(s): W19.XXXA - Unspecified fall, initial encounter
[2019-11-14] MEDS: DOCUSATE SODIUM/SENNA 50/8.6MG TAB PO SCH (21:44)
[2019-11-14] MEDS: OLANZAPINE ZYDIS 10 MG ORALLY DIS. TAB PO SCH (21:45)
[2019-11-15] MEDS: ENOXAPARIN INJ 40 MG/0.4 ML SYR SQ SCH (05:27)
[2019-11-15] MEDS: LORazepam 1 MG TAB SL SCH (08:14)
[2019-11-15] MEDS: OLANZAPINE ZYDIS 5 MG ORALLY DIS. TAB PO SCH (08:15)
[2019-11-15] MEDS: SENNA 8.6 MG TAB PO SCH (08:15)
[2019-11-15] MEDS: DIVALPROEX SODIUM SPRINKLE 125 MG CAP PO SCH (08:16)
[2019-11-15] MEDS: FLUVOXAMINE MALEATE 50 MG TAB PO SCH (08:16)
[2019-11-15] MEDS: AMOXICILLIN/CLAVULANATE SUSP 250MG/5ML 75ML BOTTLE PO SCH ×2 (08:16→08:51)
[2019-11-15] MEDS: INSULIN ASPART 100 UNITS/ML 3 ML PEN SC SCH (08:50)
--- NOTE | 2019-11-15 15:46 | Discharge Summary ---
Date of Service November 15, 2019 Admission HPI Per Admitting Provider This is an 79-year-old female with significant past medical history of COPD, history of tobacco abuse, PAD with history of stent to RLE, history of right DVT, vascular dementia with behaviors, depression, history of breast, urethral and bladder cancer who presents to ED after suffering a fall at school which facility prior to arrival. Daughter is at bedside. History unable to be obtained secondary to cognitive status in light of dementia. According to report patient was found at bedside after sustaining a fall. Fall was unwitnessed. Unknown if loss of consciousness or hitting head. She complained of right hip pain. Imaging at facility revealed an intertrochanteric right comminuted displaced hip fracture. Initially overnight family was reluctant to send patient to ER until spoke with a.m. provider. At baseline despite dementia patient is ambulatory without assist device and is very mobile according to daughter. Family was convinced to send patient to ED in a.m. In ER patient is agitated and appears uncomfortable. Imaging confirms right intertrochanteric femur fracture that is comminuted and angulated/displaced. ER provider did speak with on-call orthopedic surgeon Dr. Fong. Further lab work notable for leukocytosis 11.09k, H&H 12.1 and 38.3, platelet 196, BUN 13, creatinine 0.76, glucose 151. Urinalysis consistent with leukocyte esterase, +1 bacteria and numerous epithelial cells. Principal Diagnosis FALL Right hip Fracture s/p surgery Dementia Discharge Exam Constitutional WD/WN, vitals as above no acute distress Eyes + anicteric sclerae ENMT external ear and nose normal, oropharynx normal Neck trachea midline, no thyromegaly Respiratory + cough Auscultation: + crackles and + rales; no wheezes Cardiovascular RRR, no murmur, no edema Gastrointestinal (Abdomen) Percussion/Palpation: abdomen soft; abdomen nontender Psychiatric Orientation: alert and oriented to person; + not oriented x 3 Discharge Data Allergies Allergy/AdvReac Type Severity Reaction Status Date / Time No Known Allergies Allergy Verified 11/09/19 09:53 Consultations 11/09/19 10:05 ED Decision to Admit Stat 11/09/19 10:14 Consult Anesthesiology Routine Consult Orthopedic Surgery Routine 11/09/19 14:18 Consult Case Management - Discharge Planning Routine 11/10/19 21:05 Consult Case Management - Discharge Planning Routine Procedures Performed Operation Date: 11/10/19 07:00 Actual Procedures p Right Trochanteric Nail(Right) - Haja Loo Ordered Studies 11/09/19 09:26 CT cervical spine wo con Stat CT head/brain wo con Stat 11/10/19 07:00 FL femur RT 2V Routine FL fluoroscopy <1hr Routine Hospital Course (1) Diastolic CHF, acute on chronic: vol status improved to baseline after IV lasix no cough , no SOB today pt is pleasant and clam today agreeable to have meals stable to be transferred to rehab (2) Fall: (3) Displaced intertrochanteric fracture of right femur: This is an 79-year-old female with significant past medical history of COPD, history of tobacco abuse, PAD with history of stent to RLE, history of right DVT, vascular dementia with behaviors, depression, history of breast, urethral and bladder cancer who presents to ED after suffering a fall at [facility] prior to arrival fall was unwitnessed possible osteoporosis related pathologic fracture R hip X-ray of femur shows radiolucent bone suggestive of advanced osteoporosis Comminuted and angulated/displaced right intertrochanteric femoral fracture. CT Head/Neck no acute finding status post right hip surgery, recovering well requiring PRN tylenol only pain appears to be adequately controlled appreciate input from Orthopedics : weight bearing as tolerated /range of motion as tolerated DVT prophylaxis -Aspirin 81 mg twice Daily for 6 weeks Follow up with Orthopedics follow up in 2-3 weeks -for staple removal , and repeat xray of hip Acute blood loss anemia: Secondary to postop status s/p 1 unit of blood transfusion H&H remains stable ASPIRATION PNEUMONIA : was very sedated 1 days back , later was comabtive agitated noted to cough while drinking Xray left lower lobe pneumonia -new since admission image PO Augmentin -total 5 days aspiration precaution Speech eval requested -appreciate input (4) COPD (chronic obstructive pulmonary disease): no acute exac cough , SOBimproved (5) PAD (peripheral artery disease): hx of stent to RLE pt is not on asa/statin pulses intact distally (6) Dementia: with behaviors issues, gets agitated easily continue zyprexa changed to ODT , depakote changed to sprikle for easy adminstration as pt refused meals /meds , fluvoxamine avoid Narcotics , BDZ -likely can cause over sedation , reverse agitation recommend frequent re orientation pt likely to experience delirium (7) DVT prophylaxis: sub q lovenox Follow up: PCP Dr. Ordonez/Kirsten Barrientos PA-C at [facility] Disposition : accepted at [facility] for skilled rehab , transfer for SNF today Daughter Linda updated aware of poor prognosis with advance dementia pt will go to [facility] for rehab in future with clinical decline daughter will consider transition to Hospice Total Time Total Time Spent Total Time Spent (In Minutes): 35 mins Total Time Includes: Discharge Planning and Medication Reconciliation Discharge Plan Discharge Items Patient Disposition: Transfer Care Home Fac Reason For Visit: R INTERTROCHANTERIC FEMUR FRACTURE Discharge Diagnosis: FALL Right hip Fracture s/p surgery Dementia Condition on Discharge: Fair Activity: Per Instructions section Non-emergency contact: Primary Care Provider Call non-emergency contact if: you have any medication questions Follow-up/Referrals: Haja Loo [Surgeon] - (2 to 3 weeks postoperatively for repeat hip x-rays and staple removal.) Isaac Fong MD [Physician] - Diet: Regular Addtl Attending Provider Instructions: Orthopaedic Instructions after Hip Fracture Surgery: Please keep your wound clean and dry. Do not remove any of the marylu. Marylu were removed at your follow-up appointment with orthopedic surgery. Please continue daily dressing changes until your follow-up appointment. If there is no drainage onto the dressing for total of 24 hours, you may shower after 5 days from surgery. Allow soap and water to run over the incision, no scrubbing, and pat dry. Do not submerse (sitting in bathtub, hot tub, jacuzzi, pool, etc) the wound for at least 3 weeks. You may bear weight on your lower extremities as tolerated. Please use the walker or as instructed by physical therapy. For pain control please use Tylenol as needed. You can also apply ice to the surgical site. To reduce the risk of dangerous blood clots please continue the medication recommended by your medical team. Pending Studies at Discharge: No Stand-Alone Forms: [employer] Skilled Items Patient informed of condition?: Yes DNR: Yes Discharge Level of Care: Skilled Communicable Disease: No Discharge Prognosis: Stable Lines: None Urinary Catheter: No Medications and DC Order Prescriptions: New sennosides [Senokot] 8.6 mg Tablet 8.6 mg PO BID 30 Days Qty: 60 RF: 0 sennosides-docusate sodium [Senokot-S] 8.6-50 mg Tablet 2 tab PO HS 30 Days Qty: 0 RF: 0 magnesium hydroxide [Milk of Magnesia] 400 mg/5 mL Suspension 30 ml PO DAILY PRN30 Days Qty: 0 RF: 0 olanzapine 10 mg Tablet,Disintegrating 10 mg PO HS 30 Days Qty: 30 RF: 0 lorazepam 1 mg Tablet 0.25 mg sublingual BID 10 Days Qty: 5 RF: 0 divalproex 125 mg Capsule, Delayed Rel Sprinkle 250 mg PO BID 30 Days Qty: 0 RF: 0 olanzapine 5 mg Tablet,Disintegrating 5 mg PO QAM Qty: 30 RF: 0 hydrocodone-acetaminophen 5-325 mg Tablet 1 tab PO Q6H PRN (Reason: Pain) Qty: 10 RF: 0 aspirin 81 mg tablet,delayed release (DR/EC) 81 mg PO BID 42 Days Qty: 84 RF: 0 Continued sennosides [senna] 8.6 mg Tablet 8.6 mg PO BID RF: 0 Biofreeze (menthol) 4 % Gel 1 applic TOPICAL TID RF: 0 fluvoxamine 100 mg tablet 100 mg PO BID RF: 0 acetaminophen 325 mg Tablet 325 mg PO TID PRN (Reason: Pain) Qty: 0 RF: 0 Discontinued clonazepam 0.5 mg tablet 0.25 mg PO BID RF: 0 olanzapine 10 mg Tablet 10 mg PO HS RF: 0 olanzapine 5 mg Tablet 5 mg PO QAM RF: 0 divalproex 250 mg tablet extended release 24 hr 250 mg PO Q12H RF: 0 Discharge Orders: Discharge Order (Routine); Ordered 11/15/19 Ordered By: Carola Ferreira/Other Patient Handouts: Understanding Dementia Admission Data Admit Date/Time: 11/09/19 10:12 Attending Provider: Carola Parra Admit Provider: Carola Parra Primary Care Provider: Tammy Pimentel [place] Other Providers: Tammy Pimentel [facility] ; Karly,Don ; Carola Parra ; Francisco Santos ; Isaac Fong Other Interventions: Discharge Summary Assessment (RN) Last Done: 11/15/19 12:23
== END 2019-11-15 12:36 | DRG 480 ==
LOC: ED 09:10 → 3W 10:12